=== PATIENT | female | born 1935 | race Caucasian/White ===

== ENCOUNTER 2016-09-29 11:59 | Inpatient (IN) | payer MEDICARE, OTHER ==
--- NOTE | 2016-09-29 12:28 | ED Physician Chart ---
Chief Complaint/HPI - Patient Information Date Seen:: 09/29/16 Time Seen:: 12:05 Chief Complaint:: Sent for mina-psych eval. for agitation Allergies:: Allergies Allergy/AdvReac Type Severity Reaction Status Date / Time No Known Allergies Allergy Verified 09/29/16 12:11 Vitals:: 134/68, afebrile, 74, 18 Review of Systems - Review of Systems General/Constitutional: No fever, No chills Skin: No skin lesions, No rash Head: No headache Eyes: No loss of vision ENT: No earache, No sore throat Neck: No neck pain Cardio Vascular: No chest pain, No palpitations Pulmonary: No SOB, No cough GI: No nausea, No vomiting, No diarrhea G/U: No dysuria Musculoskeletal: No bone or joint pain Psychiatric: Prior psych history, Depression, Anxiety, Other (bipolar) Neurological: No syncope Past Medical History - Past Medical History Past Medical History: HTN, DM, Dyslipidemia, Thyroid disorder, Dementia, Other ( immobility syndrome, obesity, cataracts, Bipolar, anxiety) Family History: None (Pt. cannot give good hx.) Social History: Non Smoker, No Alcohol Surgical History: None (Pt. cannot give good hx.) Medication: Reviewed (ativan, synthroid, zoloft, KCl, metformin, lasix, losartan , xarelto) Physical Exam - Physical Examination General/Constitutional: Awake, Well-developed, well-nourished, Alert, No distress (Pt. is conversant, but confused.), Non-toxic appearing, Ambulatory Head: Atraumatic Eyes: Lids, conjuctiva normal, PERRL, EOMI Skin: Nl inspection, No rash ENMT: External ears, nose nl Neck: Full ROM w/o pain Respiratory: Nl effort/Exclusion, Clear to Auscultation, No Wheeze/Rhonchi/Rales Cardio Vascular: RRR, No murmur, gallop, rubs GI: No tenderness/rebounding/guarding : No CVA tenderness Extremities: No tenderness or effusion, Full ROM Neuro/Psych: Alert/oriented Labs/Radiology/EKG Results - Lab Results Results: UA shows RBC 0 - 2 and WBC 0 - 2. CXR per rad.: "chronic lung changes with L basal subsegmental atelectasis vs. scarring. No focal consolidation identified. Athersclerotic vascular disease. Bilat breat implants noted." CPK nl. CBC unremarkable. Trop. nl. EtOH negligible. CMP unremarkable. Glucose 141. EKG: NSR with nl axis and no acute ST seg elevations. ED Septic Shock - . Is Septic Shock (SBP<90, OR Lactate>4 mmol\\L) present?: No Reassessment (Disposition) - Reassessment Reassessment Condition:: Unchanged - Diagnosis Diagnosis:: Dx: Agitation, mina-psych admit. - Patient Disposition Discharge/Transfer:: Acute Care w/in this hosp Admitted to:: [facility] Admitting Medical Physician:: Dr. Dorado Admitting Psych Physician:: Dr. Sarah Condition at Disposition:: Stable ED Discharge Plan - Patient Disposition Admit/Discharge/Transfer: Acute Care w/in this hosp Condition at Disposition: Unchanged
[2016-09-29 12:38] LABS: % EOSINOPHILS 0.9 % (0.0-5.0); % LYMPHOCYTES 17.4 % (20.0-50.0); % MONOCYTES 6.2 % (2.0-10.0); % NEUTROPHILS 75.5 % (40.0-80.0); HEMATOCRIT 40.1 % (35.0-45.0); HEMOGLOBIN 13.2 gm/dL (11.7-16.1); MEAN CELL VOLUME 83.5 fl (81-100); MEAN CORPUSCULAR HEMOGLOBIN 27.5 pg (27.0-31.0); MEAN CORPUSCULAR HGB CONC 32.9 pg (28.0-36.0); MEAN PLATELET VOLUME 7.5 fl; NEUTROPHILE ABSOLUTE 6.1 Th/cmm (1.8-8.0); PLATELET COUNT 329 Th/cmm (150-400); RED CELL DISTRIBUTION WIDTH 14.1 % (11.5-20.0); WHITE BLOOD COUNT 8.1 Th/cmm (4.8-10.8)
[2016-09-29 12:59] LABS: ALB/GLOB RATIO 1.4 (1.0-1.8); ALKALINE PHOSPHATASE 65 U/L (34-104); ANION GAP 8.1 (7.0-16.0); BILIRUBIN,TOTAL 0.7 mg/dL (0.3-1.0); BUN - UREA NITROGEN 12 mg/dL (7-25); BUN/CREATININE RATIO 13.3; CALCIUM SERUM 9.7 mg/dL (8.6-10.3); CARBON DIOXIDE 27.5 mEq/L (21.0-31.0); CHLORIDE 105 mEq/L (98-107); CREATININE - SERUM 0.9 mg/dL (0.6-1.2); GLUCOSE 141 mg/dL (70-105); POTASSIUM SERUM 3.6 mEq/L (3.5-5.1); SGOT 13 U/L (13-39); SGPT/ALT 9 U/L (7-52); SODIUM SERUM 137 mEq/L (136-145)
[2016-09-29 13:14] LABS: CREATINE KINASE MB 1.8 ng/mL (0.6-6.3)
--- NOTE | 2016-09-29 13:15 | Diagnostic Imaging Report ---
CHEST X-RAY: AP view INDICATION: Pneumonia COMPARISON: None FINDINGS: Bilateral breast implants are noted. There is elevation of the bilateral hemidiaphragms. Chronic lung changes are seen with left basal subsegmental atelectasis versus scarring. No focal consolidation or pleural effusions. Heart size at the upper limits of normal. Atherosclerotic vascular disease noted. Degenerative changes of the spine are noted. There appears to be external material overlying the left clavicular region. IMPRESSION: Chronic lung changes with left basal subsegmental atelectasis versus scarring. No focal consolidation identified. Atherosclerotic vascular disease. Bilateral breast implants noted.
[2016-09-29 13:18] LABS: URINE BILIRUBIN NEGATIVE (NEGATIVE); URINE BLOOD NEGATIVE (NEGATIVE); URINE COLOR YELLOW; URINE GLUCOSE (UA) NEGATIVE (NEGATIVE); URINE KETONE NEGATIVE (NEGATIVE); URINE PROTEIN NEGATIVE (NEGATIVE); URINE UROBILINOGEN 0.2 E.U./dL (0.2 - 1.0)
[2016-09-29 13:21] LABS: URINE BACTERIA FEW /hpf (NONE SEEN); URINE EPITHELIAL CELLS FEW /lpf (FEW); URINE RBC 0-2 /hpf (0-5); URINE WBC 0-2 /hpf (0-5)
[2016-09-29 13:25] LABS: AMPHETAMINE URINE NEGATIVE (NEGATIVE); BARBITURATES URINE NEGATIVE (NEGATIVE); METHADONE URINE NEGATIVE (NEGATIVE)
[2016-09-29 15:45] VITALS: BP 137/70
[2016-09-29] MEDS ORDERED: Maalox 30 mL Cup PO PRN (15:48)
--- NOTE | 2016-09-29 19:45 | Geri Psych History & Physical ---
[facility] History & Physical - Date of Admission Date of Admission: 09/29/16 - Identifying Data Identifying Data: Patient is a 81-year-old woman distant of [facility] - Chief Complaint Chief Complaint: I do not know why they have to bring me here - History of Present Illness History of Present Illness: This is the first psychiatric hospitalization to [facility] for this 81-year-old woman who is a resident of [facility]. Patient is reported to have been getting easily agitated and has been in abusive towards the staff members and also because self abusive and hence patient has been brought over here for stabilization - Past Psych History Past Psych History: None - Substance Abuse History Substance Abuse History: None - Past Medical History Past Medical History: As per the primary care physician Psych: Bipolar Current Medications: Current Medications Acetaminophen (Tylenol) 650 mg PO Q4HR PRN PRN Reason: Mild Pain / Temp above 100 Stop: 11/28/16 15:47 Acetaminophen/Hydrocodone Bitart ([place] 5mg/325mg) 1 tab PO Q6HR PRN PRN Reason: Pain (Mild) Stop: 11/28/16 17:03 Al Hydrox/Mg Hydrox/Simethicone (Maalox) 30 ml PO Q4HR PRN PRN Reason: GI DISTRESS Stop: 11/28/16 15:47 Furosemide (Lasix) 40 mg PO DAILY ANA Stop: 11/29/16 08:59 Levothyroxine Sodium (Synthroid) 0.05 mg PO QAM ANA Stop: 11/29/16 08:59 Lorazepam (Ativan) 0.5 mg PO Q4HR PRN; Protocol PRN Reason: Anxiety Stop: 10/29/16 15:47 Lorazepam (Ativan) 1 mg PO DAILY ANA PRN Reason: Protocol Stop: 11/29/16 08:59 Losartan Potassium (Cozaar) mg PO DAILY ANA Stop: 11/29/16 08:59 Miscellaneous (Metformin Hcl [Glucophage Xr]) 500 mg PO DAILY ANA Stop: 11/29/16 08:59 Multivitamins/Vitamin C (Theragran) 1 tab PO DAILY ANA Stop: 11/29/16 08:59 Potassium Chloride (Klor-Con) 20 meq PO DAILY ANA Stop: 11/29/16 08:59 Zolpidem Tartrate (Ambien) 5 mg PO HS PRN PRN Reason: Insomnia Stop: 11/28/16 15:47 Allergies/Adverse Reactions: Allergies Allergy/AdvReac Type Severity Reaction Status Date / Time No Known Allergies Allergy Verified 09/29/16 12:11 - Social History Social History: President of the [employer] - Family History Family History: Details are not known Family History: No Significant - Legal Problem Legal Problem: None - Mental Status Examination Psych General Appearance: Older than stated age, Casually dressed Psych Behavior: Alert, Cooperative Psych Speech: Normal in Rate and amount Psych Mood: Angry, Anxious, Irritable Psych Affect: Approp. content of speech Psych Thought Process: [place] Psych Cognition: Grossly Intact Psych Insight: Impaired Psych Judgement: Impaired - Physical Examination Physical Exam: As per the primary care physician - Review of System Psychological ROS: Hostility, Irritability Neurological: No Significant - Vitals and I&O Vitals and I&O: Vital Signs Temp 97.6 F 09/29/16 16:56 Pulse 74 09/29/16 16:56 Resp 18 09/29/16 16:56 BP 134/78 09/29/16 16:56 Pulse Ox 98 09/29/16 16:56 Intake & Output 09/29/16 09/29/16 09/30/16 06:59 18:59 06:59 Weight (lbs) 104.326 kg - Impressions Impressions: See below [place] I: Bipolar disorder mixed [place] II: None [place] III: As per the primary care physician - Treatment/Plan Treatment/Plan: Plan to add low-dose of Seroquel and continue patient with Ativan and Ambien patient is currently provided with supportive therapy and is willing to be closely monitored for self abusive behavior estimated length of stay is 5-7 days discharge criteria when patient is no longer safe to self or others and be able to cope with the stress
[2016-09-30] MEDS ORDERED: METFORMIN HCL 500 MG PO SCH (09:00)
--- NOTE | 2016-09-30 09:32 | History and Physical ---
History of Present Illness - HPI Chief Complaint: Increased in agitation HPI: Patient was send for SNF due to increased in agitation. Vital Signs: Last Vital Signs Temp 98 F 09/30/16 06:49 Pulse 88 09/30/16 06:49 Resp 19 09/30/16 06:49 BP 146/73 09/30/16 06:49 Pulse Ox 95 09/30/16 06:49 Past Medical History Cardiovascular: Report: HTN Pulmonary: Report: No Pertinent Hx SPINNER CONTINUOUS: Report: Dementia GI: Report: No Pertinent Hx Psych: Report: Psychosis Musculoskeletal: Report: No Pertinent Hx Rheumatologic: Report: No pertinent Hx Infectious Disease: Report: No Pertinent Hx Renal/: Report: Chronic Renal Failure Endocrine: Report: Diabetes Dermatology: Report: No Pertinent Hx - Past Surgical History Past Surgical History: No pertinent Hx Social History Smoke: No Alcohol: None Drugs: None Lives: Senior Care Domestic Violence: Negative Health Maintenance Health Maintenance: Cholesterol - Medications Home Medications: Home Medication Medication Instructions Recorded Type Furosemide [Lasix] 40 mg PO DAILY 09/29/16 History Hydrocodone/Acetaminophen [[place] 1 tab PO Q6HR PRN 09/29/16 History 325 mg-5 mg*] Levothyroxine [Synthroid] 50 mcg PO QAM 09/29/16 History Lorazepam [Ativan] 1 mg PO DAILY 09/29/16 History Losartan Potassium [Cozaar] 25 mg PO DAILY 09/29/16 History Metformin HCl [Glucophage Xr] 500 mg PO DAILY 09/29/16 History Potassium Chloride ER [Klor-Con] 20 meq PO DAILY 09/29/16 History - Allergies Allergies/Adverse Reactions: Allergies Allergy/AdvReac Type Severity Reaction Status Date / Time No Known Allergies Allergy Verified 09/29/16 12:11 Review of Systems - Review of Systems Constitutional: Report: No Significant Eyes: Report: No Significant ENT: Report: No Significant Respiratory: Report: No Significant Cardiovascular: Report: No Significant Gastrointestinal: Report: No Significant Genitourinary: Report: No Significant Musculoskeletal: Report: No Significant Skin: Report: No Significant Neurological: Report: No Significant Physical Exam - Physical Exam HEENT: Report: Ears Nose Throat within normal limits Neck: Report: Within normal limits Cardiovascular Systems: Report: Regular, Rate and Rhythm Respiratory: Report: Breath Sounds are within normal limits Abdomen: Report: Non-tender to palpation Back: Report: Inspection of back is within normal limits. Extremities: Report: Non-tender to palpation. Skin: Report: Warm, Dry Neuro/Psych: Report: No motor deficit - Lab Results All Lab Results last 24 hours: Laboratory Last Values WBC 8.1 Th/cmm (4.8-10.8) 09/29/16 12:29 RBC 4.80 Mil/cmm (3.80-5.20) 09/29/16 12:29 Hgb 13.2 gm/dL (11.7-16.1) 09/29/16 12:29 Hct 40.1 % (35.0-45.0) 09/29/16 12:29 MCV 83.5 fl (81-100) 09/29/16 12:29 MCH 27.5 pg (27.0-31.0) 09/29/16 12:29 MCHC Differential 32.9 pg (28.0-36.0) 09/29/16 12:29 RDW 14.1 % (11.5-20.0) 09/29/16 12:29 Plt Count 329 Th/cmm (150-400) 09/29/16 12:29 MPV 7.5 fl 09/29/16 12:29 Neutrophils % 75.5 % (40.0-80.0) 09/29/16 12:29 Lymphocytes % 17.4 % (20.0-50.0) L 09/29/16 12:29 Monocytes % 6.2 % (2.0-10.0) 09/29/16 12: Eosinophils % 0.9 % (0.0-5.0) 09/29/16 12:29 Basophils % 0.0 % (0.0-2.0) 09/29/16 12:29 Sodium 137 mEq/L (136-145) 09/29/16 12:29 Potassium 3.6 mEq/L (3.5-5.1) 09/29/16 12:29 Chloride 105 mEq/L (98-107) 09/29/16 12:29 Carbon Dioxide 27.5 mEq/L (21.0-31.0) 09/29/16 12:29 Anion Gap 8.1 (7.0-16.0) 09/29/16 12:29 BUN 12 mg/dL (7-25) 09/29/16 12:29 Creatinine 0.9 mg/dL (0.6-1.2) 09/29/16 12:29 Est GFR ( Amer) TNP 09/29/16 12:29 Est GFR (Non-Af Amer) TNP 09/29/16 12:29 BUN/Creatinine Ratio 13.3 09/29/16 12:29 Glucose 141 mg/dL (70-105) H 09/29/16 12:29 POC Glucose 165 MG/DL (70 - 105) H 09/29/16 22:58 Calcium 9.7 mg/dL (8.6-10.3) 09/29/16 12:29 Total Bilirubin 0.7 mg/dL (0.3-1.0) 09/29/16 12:29 AST 13 U/L (13-39) 09/29/16 12:29 ALT 9 U/L (7-52) 09/29/16 12:29 Alkaline Phosphatase 65 U/L (34-104) 09/29/16 12:29 Creatine Kinase 47 U/L (30-223) 09/29/16 12:29 CK-MB (CK-2) 1.8 ng/mL (0.6-6.3) 09/29/16 12:29 Troponin I < 0.01 ng/mL (0.01-0.05) L 09/29/16 12:29 Total Protein 6.8 gm/dL (6.0-8.3) 09/29/16 12:29 Albumin 4.0 gm/dL (3.7-5.3) 09/29/16 12:29 Globulin 2.8 gm/dL 09/29/16 12:29 Albumin/Globulin Ratio 1.4 (1.0-1.8) 09/29/16 12:29 Free T4 1.45 ng/dL (0.82-1.77) 09/29/16 12:29 Free T3 2.6 pg/mL (2.0-4.4) 09/29/16 12:29 TSH 0.45 uIU/ml (0.34-5.60) 09/29/16 12:29 Urine Source CLEAN C 09/29/16 12:15 Urine Color YELLOW 09/29/16 12:15 Urine Clarity CLEAR (CLEAR) 09/29/16 12:15 Urine pH 7.0 09/29/16 12:15 Ur Specific [place] 1.015 (1.005-1.030) 09/29/16 12:15 Urine Protein NEGATIVE mg/dL (NEGATIVE) 09/29/16 12:15 Urine Glucose (UA) NEGATIVE mg/dL (NEGATIVE) 09/29/16 12:15 Urine Ketones NEGATIVE mg/dL (NEGATIVE) 09/29/16 12:15 Urine Blood NEGATIVE (NEGATIVE) 09/29/16 12:15 Urine Nitrate NEGATIVE (NEGATIVE) 09/29/16 12:15 Urine Bilirubin NEGATIVE (NEGATIVE) 09/29/16 12:15 Urine Urobilinogen 0.2 E.U./dL (0.2 - 1.0) 09/29/16 12:15 Ur Leukocyte Esterase TRACE (NEGATIVE) H 09/29/16 12:15 Urine RBC 0-2 /hpf (0-5) 09/29/16 12:15 Urine WBC 0-2 /hpf (0-5) 09/29/16 12:15 Ur Epithelial Cells FEW /lpf (FEW) 09/29/16 12:15 Urine Bacteria FEW /hpf (NONE SEEN) 09/29/16 12:15 Urine Opiates Screen NEGATIVE (NEGATIVE) 09/29/16 12:15 Urine Methadone Screen NEGATIVE (NEGATIVE) 09/29/16 12:15 Ur Barbiturates Screen NEGATIVE (NEGATIVE) 09/29/16 12:15 Ur Tricyclics Screen NEGATIVE (NEGATIVE) 09/29/16 12:15 Ur Phencyclidine Scrn NEGATIVE (NEGATIVE) 09/29/16 12:15 Amphetamines Screen NEGATIVE (NEGATIVE) 09/29/16 12:15 U Methamphetamines Scrn NEGATIVE (NEGATIVE) 09/29/16 12:15 U Benzodiazepines Scrn POSITIVE (NEGATIVE) H 09/29/16 12:15 U Cocaine Metab Screen NEGATIVE (NEGATIVE) 09/29/16 12:15 U Cannabinoids Screen NEGATIVE (NEGATIVE) 09/29/16 12:15 Ethyl Alcohol < 10 mg/dL (0-10) 09/29/16 12:29 Laboratory Results - last 24 hr 09/29/16 22:58 POC Glucose 165 H - Assessment Assessment: Patient is awake, calm in no acute distress. Dx: Increased in agitation, Dementia, HTN, DM, Thyroid disorder, - Plan Plan: Patient is follow by psychiatry. Will continue with SNF meds.
[2016-09-30] MEDS: Levothyroxine 0.05 Mg Tab PO SCH (09:34)
[2016-09-30] MEDS: Multivitamin Tab PO SCH (09:35)
[2016-09-30] MEDS: Potassium Chloride 20 mEq ER Tab PO SCH (09:35)
[2016-09-30] MEDS: Hydrocodone/APAP 5mg/325mg Tab PO PRN (11:14)
--- NOTE | 2016-09-30 13:00 | Geri Psych Progress Note ---
[facility] Psych Progress Note - Intro Date of Progress Note: 09/30/16 - Assessment Assessment: Acute mood swings. - Vitals, I&O Vitals: Vital Signs - 24 hr 09/29/16 09/29/16 09/30/16 15:45 16:56 06:49 Temp 97.6 F 98 F HR 74 88 RR 18 19 BP 137/70 134/78 146/73 O2 Sat % 98 95 09/30/16 09/30/16 09:34 11:12 Temp HR 88 RR BP 140/73 146/73 O2 Sat % I&O: Intake & Output 09/28/16 09/29/16 09/30/16 10/01/16 06:59 06:59 06:59 06:59 Intake Total 120 Balance 120 Weight (lbs) 104.326 kg - ROS Psychological ROS: Report: Anxiety, Irritability, Mood swings Neurological: Report: No Significant - Objective Psych General Appearance: Report: No acute distress, Casually dressed Psych Behavior: Report: Alert, Cooperative Psych Speech: Report: Normal in Rate and amount Psych Mood: Report: Frustrated, Irritable Psych Affect: Report: Approp. content of speech, Mood-congruent Psych Thought Process: Report: Flight of Ideas Psych Cognition: Report: Grossly Intact Psych Insight: Report: Impaired Psych Judgement: Report: Impaired - Plan Plan: to continue current meds and follow up. - Review of Relevant Data Review of Relevant Data: I have reviewed the following items and time aman (where applicable) has been applied. Psych Data Reviewed: Meds - Diagnosis Diagnosis: Bipolar disorder. - Medications Current Medications: Current Medications Acetaminophen (Tylenol) 650 mg PO Q4HR PRN PRN Reason: Mild Pain / Temp above 100 Stop: 11/28/16 15:47 Acetaminophen/Hydrocodone Bitart ([place] 5mg/325mg) 1 tab PO Q6HR PRN PRN Reason: Pain (Moderate) Stop: 11/28/16 17:03 Last Admin: 09/30/16 11:14 Dose: 1 tab Al Hydrox/Mg Hydrox/Simethicone (Maalox) 30 ml PO Q4HR PRN PRN Reason: GI DISTRESS Stop: 11/28/16 15:47 Furosemide (Lasix) 40 mg PO DAILY ANA Stop: 11/29/16 08:59 Last Admin: 09/30/16 09:34 Dose: 40 mg Levothyroxine Sodium (Synthroid) 0.05 mg PO QAM ANA Stop: 11/29/16 08:59 Last Admin: 09/30/16 09:34 Dose: 0.05 mg Lorazepam (Ativan) 0.5 mg PO Q4HR PRN; Protocol PRN Reason: Anxiety Stop: 10/29/16 15:47 Lorazepam (Ativan) 1 mg PO DAILY ANA PRN Reason: Protocol Stop: 11/29/16 08:59 Last Admin: 09/30/16 09:35 Dose: 1 mg Losartan Potassium (Cozaar) 25 mg PO DAILY ANA Stop: 11/30/16 08:59 Losartan Potassium (Cozaar) 25 mg PO 1030 ANA Stop: 09/30/16 13:30 Last Admin: 09/30/16 11:12 Dose: Not Given Metformin HCl (Glucophage) 500 mg PO DAILY ANA Stop: 11/29/16 09:44 Last Admin: 09/30/16 11:13 Dose: Not Given Multivitamins/Vitamin C (Theragran) 1 tab PO DAILY ANA Stop: 11/29/16 08:59 Last Admin: 09/30/16 09:35 Dose: 1 tab Potassium Chloride (Klor-Con) 20 meq PO DAILY ANA Stop: 11/29/16 08:59 Last Admin: 09/30/16 09:35 Dose: 20 meq Zolpidem Tartrate (Ambien) 5 mg PO HS PRN PRN Reason: Insomnia Stop: 11/28/16 15:47
[2016-10-01] MEDS: Levothyroxine 0.05 Mg Tab PO SCH (08:57)
[2016-10-01] MEDS: Potassium Chloride 20 mEq ER Tab PO SCH (08:58)
[2016-10-01] MEDS: Multivitamin Tab PO SCH (08:58)
--- NOTE | 2016-10-01 10:09 | General Progress Note ---
Subjective - Review of Systems Service Date: 10/01/16 Subjective: Patient is confused Objective - Results Result Diagrams: 09/29/16 12:29 09/29/16 12:29 Recent Labs: Laboratory Last Values WBC 8.1 Th/cmm (4.8-10.8) 09/29/16 12:29 RBC 4.80 Mil/cmm (3.80-5.20) 09/29/16 12:29 Hgb 13.2 gm/dL (11.7-16.1) 09/29/16 12:29 Hct 40.1 % (35.0-45.0) 09/29/16 12:29 MCV 83.5 fl (81-100) 09/29/16 12:29 MCH 27.5 pg (27.0-31.0) 09/29/16 12:29 MCHC Differential 32.9 pg (28.0-36.0) 09/29/16 12:29 RDW 14.1 % (11.5-20.0) 09/29/16 12:29 Plt Count 329 Th/cmm (150-400) 09/29/16 12:29 MPV 7.5 fl 09/29/16 12:29 Neutrophils % 75.5 % (40.0-80.0) 09/29/16 12:29 Lymphocytes % 17.4 % (20.0-50.0) L 09/29/16 12:29 Monocytes % 6.2 % (2.0-10.0) 09/29/16 12:29 Eosinophils % 0.9 % (0.0-5.0) 09/29/16 12:29 Basophils % 0.0 % (0.0-2.0) 09/29/16 12:29 Sodium 137 mEq/L (136-145) 09/29/16 12:29 Potassium 3.6 mEq/L (3.5-5.1) 09/29/16 12:29 Chloride 105 mEq/L (98-107) 09/29/16 12:29 Carbon Dioxide 27.5 mEq/L (21.0-31.0) 09/29/16 12:29 Anion Gap 8.1 (7.0-16.0) 09/29/16 12:29 BUN 12 mg/dL (7-25) 09/29/16 12:29 Creatinine 0.9 mg/dL (0.6-1.2) 09/29/16 12:29 Est GFR ( Amer) TNP 09/29/16 12:29 Est GFR (Non-Af Amer) TNP 09/29/16 12:29 BUN/Creatinine Ratio 13.3 09/29/16 12:29 Glucose 141 mg/dL (70-105) H 09/29/16 12:29 POC Glucose 129 MG/DL (70 - 105) H 09/30/16 16:34 Hemoglobin A1c % 6.9 % (4.0-6.0) H 09/30/16 10:45 Calcium 9.7 mg/dL (8.6-10.3) 09/29/16 12:29 Total Bilirubin 0.7 mg/dL (0.3-1.0) 09/29/16 12:29 AST 13 U/L (13-39) 09/29/16 12:29 ALT 9 U/L (7-52) 09/29/16 12:29 Alkaline Phosphatase 65 U/L (34-104) 09/29/16 12:29 Creatine Kinase 47 U/L (30-223) 09/29/16 12:29 CK-MB (CK-2) 1.8 ng/mL (0.6-6.3) 09/29/16 12:29 Troponin I < 0.01 ng/mL (0.01-0.05) L 09/29/16 12:29 Total Protein 6.8 gm/dL (6.0-8.3) 09/29/16 12:29 Albumin 4.0 gm/dL (3.7-5.3) 09/29/16 12:29 Globulin 2.8 gm/dL 09/29/16 12:29 Albumin/Globulin Ratio 1.4 (1.0-1.8) 09/29/16 12:29 Free T4 1.45 ng/dL (0.82-1.77) 09/29/16 12:29 Free T3 2.6 pg/mL (2.0-4.4) 09/29/16 12:29 TSH 0.45 uIU/ml (0.34-5.60) 09/29/16 12:29 Urine Source CLEAN C 09/29/16 12:15 Urine Color YELLOW 09/29/16 12:15 Urine Clarity CLEAR (CLEAR) 09/29/16 12:15 Urine pH 7.0 09/29/16 12:15 Ur Specific [place] 1.015 (1.005-1.030) 09/29/16 12:15 Urine Protein NEGATIVE mg/dL (NEGATIVE) 09/29/16 12:15 Urine Glucose (UA) NEGATIVE mg/dL (NEGATIVE) 09/29/16 12:15 Urine Ketones NEGATIVE mg/dL (NEGATIVE) 09/29/16 12:15 Urine Blood NEGATIVE (NEGATIVE) 09/29/16 12:15 Urine Nitrate NEGATIVE (NEGATIVE) 09/29/16 12:15 Urine Bilirubin NEGATIVE (NEGATIVE) 09/29/16 12:15 Urine Urobilinogen 0.2 E.U./dL (0.2 - 1.0) 09/29/16 12:15 Ur Leukocyte Esterase TRACE (NEGATIVE) H 09/29/16 12:15 Urine RBC 0-2 /hpf (0-5) 09/29/16 12:15 Urine WBC 0-2 /hpf (0-5) 09/29/16 12:15 Ur Epithelial Cells FEW /lpf (FEW) 09/29/16 12:15 Urine Bacteria FEW /hpf (NONE SEEN) 09/29/16 12:15 Urine Opiates Screen NEGATIVE (NEGATIVE) 09/29/16 12:15 Urine Methadone Screen NEGATIVE (NEGATIVE) 09/29/16 12:15 Ur Barbiturates Screen NEGATIVE (NEGATIVE) 09/29/16 12:15 Ur Tricyclics Screen NEGATIVE (NEGATIVE) 09/29/16 12:15 Ur Phencyclidine Scrn NEGATIVE (NEGATIVE) 09/29/16 12:15 Amphetamines Screen NEGATIVE (NEGATIVE) 09/29/16 12:15 U Methamphetamines Scrn NEGATIVE (NEGATIVE) 09/29/16 12:15 U Benzodiazepines Scrn POSITIVE (NEGATIVE) H 09/29/16 12:15 U Cocaine Metab Screen NEGATIVE (NEGATIVE) 09/29/16 12:15 U Cannabinoids Screen NEGATIVE (NEGATIVE) 09/29/16 12:15 Ethyl Alcohol < 10 mg/dL (0-10) 09/29/16 12:29 RPR NONREACTIVE (NONREACTIVE) 09/29/16 12:29 - Physical Exam Vitals and I&O: Vital Signs Temp 97.7 F 09/30/16 20:00 Pulse 86 07/09/17 08:57 Resp 19 09/30/16 20:00 BP 140/72 10/01/16 08:57 Pulse Ox 94 09/30/16 20:00 Intake & Output 09/30/16 10/01/16 10/01/16 18:59 06:59 18:59 Intake Total 900 400 Balance 900 400 Intake: Oral 900 400 Other: # Voids 4 2 # Bowel Movements 1 Active Medications: Current Medications Acetaminophen (Tylenol) 650 mg PO Q4HR PRN PRN Reason: Mild Pain / Temp above 100 Stop: 11/28/16 15:47 Acetaminophen/Hydrocodone Bitart ([place] 5mg/325mg) 1 tab PO Q6HR PRN PRN Reason: Pain (Moderate) Stop: 11/28/16 17:03 Last Admin: 09/30/16 11:14 Dose: 1 tab Al Hydrox/Mg Hydrox/Simethicone (Maalox) 30 ml PO Q4HR PRN PRN Reason: GI DISTRESS Stop: 11/28/16 15:47 Furosemide (Lasix) 40 mg PO DAILY ANA Stop: 11/29/16 08:59 Last Admin: 10/01/16 08:56 Dose: 40 mg Levothyroxine Sodium (Synthroid) 0.05 mg PO QAM ANA Stop: 11/29/16 08:59 Last Admin: 10/01/16 08:57 Dose: 0.05 mg Lorazepam (Ativan) 0.5 mg PO Q4HR PRN; Protocol PRN Reason: Anxiety Stop: 10/29/16 15:47 Last Admin: 09/30/16 20:40 Dose: 0.5 mg Lorazepam (Ativan) 1 mg PO DAILY ANA PRN Reason: Protocol Stop: 11/29/16 08:59 Last Admin: 10/01/16 08:57 Dose: 1 mg Losartan Potassium (Cozaar) 25 mg PO DAILY ANA Stop: 11/30/16 08:59 Last Admin: 10/01/16 08:57 Dose: 25 mg Metformin HCl (Glucophage) 500 mg PO DAILY ANA Stop: 11/29/16 09:44 Last Admin: 10/01/16 08:57 Dose: 500 mg Multivitamins/Vitamin C (Theragran) 1 tab PO DAILY ANA Stop: 11/29/16 08:59 Last Admin: 10/01/16 08:58 Dose: 1 tab Potassium Chloride (Klor-Con) 20 meq PO DAILY ANA Stop: 11/29/16 08:59 Last Admin: 10/01/16 08:58 Dose: 20 meq Zolpidem Tartrate (Ambien) 5 mg PO HS PRN PRN Reason: Insomnia Stop: 11/28/16 15:47 General: Alert, Other (Confused) HEENT: Atraumatic Neck: Supple Cardiovascular: Regular rate Lungs: Clear to auscultation Abdomen: Bowel sounds, Soft Extremities: Other (No edema) Neurological: Other (Unstable gait) Skin: Other (Warm and dry) Psych/Mental Status: Other (Confused) Assessment/Plan - Assessment Assessment: Patient is awake, calm in no acute distress. Dx: Increased in agitation, Dementia, HTN, DM, Thyroid disorder, - Plan Plan: Patient is follow by psychiatry. Will continue with SNF meds.
--- NOTE | 2016-10-01 10:27 | Geri Psych Progress Note ---
[facility] Progress Note - Intro Date of Progress Note: 10/01/16 - Assessment Assessment: Acute mood swings. - Vitals, I&O Vitals: Vital Signs - 24 hr 09/30/16 09/30/16 09/30/16 11:12 16:14 20:00 Temp 98.2 F 97.7 F HR 88 85 86 HR [Radial] 86 RR 20 19 BP 146/73 139/62 138/71 O2 Sat % 95 94 10/01/16 10/01/16 08:56 08:57 Temp HR 86 HR [Radial] RR BP 140/72 140/72 O2 Sat % I&O: Intake & Output 09/29/16 09/30/16 10/01/16 10/02/16 06:59 06:59 06:59 06:59 Intake Total 120 1300 Balance 120 1300 Weight (lbs) 104.326 kg - ROS Psychological ROS: Report: Anxiety, Behavioral Disorder, Irritability, Sleep Disturbances Neurological: Report: No Significant - Objective Psych General Appearance: Report: No acute distress Psych Behavior: Report: Alert, Cooperative, Agitated Psych Speech: Report: Normal in Rate and amount Psych Mood: Report: Angry, Frustrated, Hostile, Irritable Psych Affect: Report: Approp. content of speech Psych Thought Process: Report: Flight of Ideas Psych Cognition: Report: Grossly Intact Psych Insight: Report: Impaired Psych Judgement: Report: Impaired - Plan Plan: to continue current meds and follow up. - Review of Relevant Data Review of Relevant Data: I have reviewed the following items and time aman (where applicable) has been applied. Psych Data Reviewed: Meds - Diagnosis Diagnosis: Bipolar disorder. - Medications Current Medications: Current Medications Acetaminophen (Tylenol) 650 mg PO Q4HR PRN PRN Reason: Mild Pain / Temp above 100 Stop: 11/28/16 15:47 Acetaminophen/Hydrocodone Bitart ([place] 5mg/325mg) 1 tab PO Q6HR PRN PRN Reason: Pain (Moderate) Stop: 11/28/16 17:03 Last Admin: 09/30/16 11:14 Dose: 1 tab Al Hydrox/Mg Hydrox/Simethicone (Maalox) 30 ml PO Q4HR PRN PRN Reason: GI DISTRESS Stop: 11/28/16 15:47 Furosemide (Lasix) 40 mg PO DAILY ANA Stop: 11/29/16 08:59 Last Admin: 10/01/16 08:56 Dose: 40 mg Insulin Aspart (Novolog Insulin Sliding Scale) 0 units SUBQ ACHS ANA PRN Reason: Protocol Stop: 11/30/16 11:29 Levothyroxine Sodium (Synthroid) 0.05 mg PO QAM ANA Stop: 11/29/16 08:59 Last Admin: 10/01/16 08:57 Dose: 0.05 mg Lorazepam (Ativan) 0.5 mg PO Q4HR PRN; Protocol PRN Reason: Anxiety Stop: 10/29/16 15:47 Last Admin: 09/30/16 20:40 Dose: 0.5 mg Lorazepam (Ativan) 1 mg PO DAILY ANA PRN Reason: Protocol Stop: 11/29/16 08:59 Last Admin: 10/01/16 08:57 Dose: 1 mg Losartan Potassium (Cozaar) 25 mg PO DAILY ANA Stop: 11/30/16 08:59 Last Admin: 10/01/16 08:57 Dose: 25 mg Metformin HCl (Glucophage) 500 mg PO DAILY ANA Stop: 11/29/16 09:44 Last Admin: 10/01/16 08:57 Dose: 500 mg Multivitamins/Vitamin C (Theragran) 1 tab PO DAILY ANA Stop: 11/29/16 08:59 Last Admin: 10/01/16 08:58 Dose: 1 tab Potassium Chloride (Klor-Con) 20 meq PO DAILY ANA Stop: 11/29/16 08:59 Last Admin: 10/01/16 08:58 Dose: 20 meq Zolpidem Tartrate (Ambien) 5 mg PO HS PRN PRN Reason: Insomnia Stop: 11/28/16 15:47
[2016-10-01] MEDS: INSULIN ASPART SLIDING SCALE 100 UNITS/ML UNIT SUBQ SCH ×3 (13:06→20:28)
[2016-10-02] MEDS: INSULIN ASPART SLIDING SCALE 100 UNITS/ML UNIT SUBQ SCH ×4 (06:38→20:07)
--- NOTE | 2016-10-02 08:56 | General Progress Note ---
Subjective - Review of Systems Service Date: 10/02/16 Subjective: Patient is confused Objective - Results Result Diagrams: 09/29/16 12:29 09/29/16 12:29 Recent Labs: Laboratory Last Values WBC 8.1 Th/cmm (4.8-10.8) 09/29/16 12:29 RBC 4.80 Mil/cmm (3.80-5.20) 09/29/16 12:29 Hgb 13.2 gm/dL (11.7-16.1) 09/29/16 12:29 Hct 40.1 % (35.0-45.0) 09/29/16 12:29 MCV 83.5 fl (81-100) 09/29/16 12:29 MCH 27.5 pg (27.0-31.0) 09/29/16 12:29 MCHC Differential 32.9 pg (28.0-36.0) 09/29/16 12:29 RDW 14.1 % (11.5-20.0) 09/29/16 12:29 Plt Count 329 Th/cmm (150-400) 09/29/16 12:29 MPV 7.5 fl 09/29/16 12:29 Neutrophils % 75.5 % (40.0-80.0) 09/29/16 12:29 Lymphocytes % 17.4 % (20.0-50.0) L 09/29/16 12:29 Monocytes % 6.2 % (2.0-10.0) 09/29/16 12:29 Eosinophils % 0.9 % (0.0-5.0) 09/29/16 12:29 Basophils % 0.0 % (0.0-2.0) 09/29/16 12:29 Sodium 137 mEq/L (136-145) 09/29/16 12:29 Potassium 3.6 mEq/L (3.5-5.1) 09/29/16 12:29 Chloride 105 mEq/L (98-107) 09/29/16 12:29 Carbon Dioxide 27.5 mEq/L (21.0-31.0) 09/29/16 12:29 Anion Gap 8.1 (7.0-16.0) 09/29/16 12:29 BUN 12 mg/dL (7-25) 09/29/16 12:29 Creatinine 0.9 mg/dL (0.6-1.2) 09/29/16 12:29 Est GFR ( Amer) TNP 09/29/16 12:29 Est GFR (Non-Af Amer) TNP 09/29/16 12:29 BUN/Creatinine Ratio 13.3 09/29/16 12:29 Glucose 141 mg/dL (70-105) H 09/29/16 12:29 POC Glucose 144 MG/DL (70 - 105) H 10/02/16 06:06 Hemoglobin A1c % 6.9 % (4.0-6.0) H 09/30/16 10:45 Calcium 9.7 mg/dL (8.6-10.3) 09/29/16 12:29 Total Bilirubin 0.7 mg/dL (0.3-1.0) 09/29/16 12:29 AST 13 U/L (13-39) 09/29/16 12:29 ALT 9 U/L (7-52) 09/29/16 12:29 Alkaline Phosphatase 65 U/L (34-104) 09/29/16 12:29 Creatine Kinase 47 U/L (30-223) 09/29/16 12:29 CK-MB (CK-2) 1.8 ng/mL (0.6-6.3) 09/29/16 12:29 Troponin I < 0.01 ng/mL (0.01-0.05) L 09/29/16 12:29 Total Protein 6.8 gm/dL (6.0-8.3) 09/29/16 12:29 Albumin 4.0 gm/dL (3.7-5.3) 09/29/16 12:29 Globulin 2.8 gm/dL 09/29/16 12:29 Albumin/Globulin Ratio 1.4 (1.0-1.8) 09/29/16 12:29 Free T4 1.45 ng/dL (0.82-1.77) 09/29/16 12:29 Free T3 2.6 pg/mL (2.0-4.4) 09/29/16 12:29 TSH 0.45 uIU/ml (0.34-5.60) 09/29/16 12:29 Urine Source CLEAN C 09/29/16 12:15 Urine Color YELLOW 09/29/16 12:15 Urine Clarity CLEAR (CLEAR) 09/29/16 12:15 Urine pH 7.0 09/29/16 12:15 Ur Specific [place] 1.015 (1.005-1.030) 09/29/16 12:15 Urine Protein NEGATIVE mg/dL (NEGATIVE) 09/29/16 12:15 Urine Glucose (UA) NEGATIVE mg/dL (NEGATIVE) 09/29/16 12:15 Urine Ketones NEGATIVE mg/dL (NEGATIVE) 09/29/16 12:15 Urine Blood NEGATIVE (NEGATIVE) 09/29/16 12:15 Urine Nitrate NEGATIVE (NEGATIVE) 09/29/16 12:15 Urine Bilirubin NEGATIVE (NEGATIVE) 09/29/16 12:15 Urine Urobilinogen 0.2 E.U./dL (0.2 - 1.0) 09/29/16 12:15 Ur Leukocyte Esterase TRACE (NEGATIVE) H 09/29/16 12:15 Urine RBC 0-2 /hpf (0-5) 09/29/16 12:15 Urine WBC 0-2 /hpf (0-5) 09/29/16 12:15 Ur Epithelial Cells FEW /lpf (FEW) 09/29/16 12:15 Urine Bacteria FEW /hpf (NONE SEEN) 09/29/16 12:15 Urine Opiates Screen NEGATIVE (NEGATIVE) 09/29/16 12:15 Urine Methadone Screen NEGATIVE (NEGATIVE) 09/29/16 12:15 Ur Barbiturates Screen NEGATIVE (NEGATIVE) 09/29/16 12:15 Ur Tricyclics Screen NEGATIVE (NEGATIVE) 09/29/16 12:15 Ur Phencyclidine Scrn NEGATIVE (NEGATIVE) 09/29/16 12:15 Amphetamines Screen NEGATIVE (NEGATIVE) 09/29/16 12:15 U Methamphetamines Scrn NEGATIVE (NEGATIVE) 09/29/16 12:15 U Benzodiazepines Scrn POSITIVE (NEGATIVE) H 09/29/16 12:15 U Cocaine Metab Screen NEGATIVE (NEGATIVE) 09/29/16 12:15 U Cannabinoids Screen NEGATIVE (NEGATIVE) 09/29/16 12:15 Ethyl Alcohol < 10 mg/dL (0-10) 09/29/16 12:29 RPR NONREACTIVE (NONREACTIVE) 09/29/16 12:29 - Physical Exam Vitals and I&O: Vital Signs Temp 97.3 F 10/02/16 05:30 Pulse 95 07/10/17 05:30 Resp 16 10/02/16 05:30 BP 151/71 10/02/16 05:30 Pulse Ox 96 10/02/16 05:30 Intake & Output 10/01/16 10/02/16 10/02/16 18:59 06:59 18:59 Intake Total 240 Balance 240 Intake: Oral 240 Other: # Voids 2 Active Medications: Current Medications Acetaminophen (Tylenol) 650 mg PO Q4HR PRN PRN Reason: Mild Pain / Temp above 100 Stop: 11/28/16 15:47 Acetaminophen/Hydrocodone Bitart ([place] 5mg/325mg) 1 tab PO Q6HR PRN PRN Reason: Pain (Moderate) Stop: 11/28/16 17:03 Last Admin: 09/30/16 11:14 Dose: 1 tab Al Hydrox/Mg Hydrox/Simethicone (Maalox) 30 ml PO Q4HR PRN PRN Reason: GI DISTRESS Stop: 11/28/16 15:47 Furosemide (Lasix) 40 mg PO DAILY [facility] Stop: 11/29/16 08:59 Last Admin: 10/01/16 08:56 Dose: 40 mg Insulin Aspart (Novolog Insulin Sliding Scale) 0 units SUBQ ACHS ANA PRN Reason: Protocol Stop: 11/30/16 11:29 Last Admin: 10/02/16 06:38 Dose: Not Given Levothyroxine Sodium (Synthroid) 0.05 mg PO QAM [facility] Stop: 11/29/16 08:59 Last Admin: 10/01/16 08:57 Dose: 0.05 mg Lorazepam (Ativan) 0.5 mg PO Q4HR PRN; Protocol PRN Reason: Anxiety Stop: 10/29/16 15:47 Last Admin: 10/01/16 20:28 Dose: 0.5 mg Lorazepam (Ativan) 1 mg PO DAILY ANA PRN Reason: Protocol Stop: 11/29/16 08:59 Last Admin: 10/01/16 08:57 Dose: 1 mg Losartan Potassium (Cozaar) 25 mg PO DAILY ANA Stop: 11/30/16 08:59 Last Admin: 10/01/16 08:57 Dose: 25 mg Metformin HCl (Glucophage) 500 mg PO DAILY [facility] Stop: 11/29/16 09:44 Last Admin: 10/01/16 08:57 Dose: 500 mg Multivitamins/Vitamin C (Theragran) 1 tab PO DAILY ANA Stop: 11/29/16 08:59 Last Admin: 10/01/16 08:58 Dose: 1 tab Potassium Chloride (Klor-Con) 20 meq PO DAILY ANA Stop: 11/29/16 08:59 Last Admin: 10/01/16 08:58 Dose: 20 meq Zolpidem Tartrate (Ambien) 5 mg PO HS PRN PRN Reason: Insomnia Stop: 11/28/16 15:47 General: Alert, Other (Confused) HEENT: Atraumatic Neck: Supple Cardiovascular: Regular rate Lungs: Clear to auscultation Abdomen: Bowel sounds, Soft Extremities: Other (No edema) Neurological: Other (Unstable gait) Skin: Other (Warm and dry) Psych/Mental Status: Other (Confused) Assessment/Plan - Assessment Assessment: Patient is awake, calm in no acute distress. Dx: Increased in agitation, Dementia, HTN, DM, Thyroid disorder, - Plan Plan: Patient is follow by psychiatry. Will continue with SNF meds.
--- NOTE | 2016-10-02 09:07 | Geri Psych Progress Note ---
[facility] Progress Note - Intro Date of Progress Note: 10/02/16 - Assessment Assessment: Acute mood swings. - Vitals, I&O Vitals: Vital Signs - 24 hr 10/01/16 10/02/16 20:00 05:30 Temp 98.6 F 97.3 F HR 90 95 HR [Radial] 90 RR 20 16 BP 143/74 151/71 O2 Sat % 92 96 I&O: Intake & Output 09/30/16 10/01/16 10/02/16 10/03/16 06:59 06:59 06:59 06:59 Intake Total 120 1300 240 Balance 120 1300 240 Weight (lbs) 104.326 kg - ROS Psychological ROS: Report: Anxiety, Behavioral Disorder, Mood swings Neurological: Report: No Significant - Objective Psych General Appearance: Report: No acute distress Psych Behavior: Report: Calm Psych Speech: Report: Normal in Rate and amount Psych Mood: Report: Angry, Anxious, Hostile, Irritable Psych Affect: Report: Approp. content of speech Psych Thought Process: Report: Flight of Ideas Psych Cognition: Report: Grossly Intact Psych Insight: Report: Impaired Psych Judgement: Report: Impaired - Plan Plan: to continue current meds and follow up. - Review of Relevant Data Review of Relevant Data: I have reviewed the following items and time aman (where applicable) has been applied. Psych Data Reviewed: Meds - Diagnosis Diagnosis: Bipolar disorder. - Medications Current Medications: Current Medications Acetaminophen (Tylenol) 650 mg PO Q4HR PRN PRN Reason: Mild Pain / Temp above 100 Stop: 11/28/16 15:47 Acetaminophen/Hydrocodone Bitart ([place] 5mg/325mg) 1 tab PO Q6HR PRN PRN Reason: Pain (Moderate) Stop: 11/28/16 17:03 Last Admin: 09/30/16 11:14 Dose: 1 tab Al Hydrox/Mg Hydrox/Simethicone (Maalox) 30 ml PO Q4HR PRN PRN Reason: GI DISTRESS Stop: 11/28/16 15:47 Furosemide (Lasix) 40 mg PO DAILY ANA Stop: 11/29/16 08:59 Last Admin: 10/01/16 08:56 Dose: 40 mg Insulin Aspart (Novolog Insulin Sliding Scale) 0 units SUBQ ACHS ANA PRN Reason: Protocol Stop: 11/30/16 11:29 Last Admin: 10/02/16 06:38 Dose: Not Given Levothyroxine Sodium (Synthroid) 0.05 mg PO QAM ANA Stop: 11/29/16 08:59 Last Admin: 10/01/16 08:57 Dose: 0.05 mg Lorazepam (Ativan) 0.5 mg PO Q4HR PRN; Protocol PRN Reason: Anxiety Stop: 10/29/16 15:47 Last Admin: 10/01/16 20:28 Dose: 0.5 mg Lorazepam (Ativan) 1 mg PO DAILY ANA PRN Reason: Protocol Stop: 11/29/16 08:59 Last Admin: 10/01/16 08:57 Dose: 1 mg Losartan Potassium (Cozaar) 25 mg PO DAILY ANA Stop: 11/30/16 08:59 Last Admin: 10/01/16 08:57 Dose: 25 mg Metformin HCl (Glucophage) 500 mg PO DAILY ANA Stop: 11/29/16 09:44 Last Admin: 10/01/16 08:57 Dose: 500 mg Multivitamins/Vitamin C (Theragran) 1 tab PO DAILY ANA Stop: 11/29/16 08:59 Last Admin: 10/01/16 08:58 Dose: 1 tab Potassium Chloride (Klor-Con) 20 meq PO DAILY ANA Stop: 11/29/16 08:59 Last Admin: 10/01/16 08:58 Dose: 20 meq Zolpidem Tartrate (Ambien) 5 mg PO HS PRN PRN Reason: Insomnia Stop: 11/28/16 15:47
[2016-10-02] MEDS: Multivitamin Tab PO SCH (09:23)
[2016-10-02] MEDS: Potassium Chloride 20 mEq ER Tab PO SCH (09:23)
[2016-10-02] MEDS: Levothyroxine 0.05 Mg Tab PO SCH (09:24)
[2016-10-02] MEDS: Hydrocodone/APAP 5mg/325mg Tab PO PRN (10:59)
[2016-10-03] MEDS: INSULIN ASPART SLIDING SCALE 100 UNITS/ML UNIT SUBQ SCH ×4 (06:44→20:17)
--- NOTE | 2016-10-03 08:54 | General Progress Note ---
Subjective - Review of Systems Service Date: 10/03/70 Subjective: Patient is confused Objective - Results Result Diagrams: 09/29/16 12:29 09/29/16 12:29 Recent Labs: Laboratory Last Values WBC 8.1 Th/cmm (4.8-10.8) 09/29/16 12:29 RBC 4.80 Mil/cmm (3.80-5.20) 09/29/16 12:29 Hgb 13.2 gm/dL (11.7-16.1) 09/29/16 12:29 Hct 40.1 % (35.0-45.0) 09/29/16 12:29 MCV 83.5 fl (81-100) 09/29/16 12:29 MCH 27.5 pg (27.0-31.0) 09/29/16 12:29 MCHC Differential 32.9 pg (28.0-36.0) 09/29/16 12:29 RDW 14.1 % (11.5-20.0) 09/29/16 12:29 Plt Count 329 Th/cmm (150-400) 09/29/16 12:29 MPV 7.5 fl 09/29/16 12:29 Neutrophils % 75.5 % (40.0-80.0) 09/29/16 12:29 Lymphocytes % 17.4 % (20.0-50.0) L 09/29/16 12:29 Monocytes % 6.2 % (2.0-10.0) 09/29/16 12:29 Eosinophils % 0.9 % (0.0-5.0) 09/29/16 12:29 Basophils % 0.0 % (0.0-2.0) 09/29/16 12:29 Sodium 137 mEq/L (136-145) 09/29/16 12:29 Potassium 3.6 mEq/L (3.5-5.1) 09/29/16 12:29 Chloride 105 mEq/L (98-107) 09/29/16 12:29 Carbon Dioxide 27.5 mEq/L (21.0-31.0) 09/29/16 12:29 Anion Gap 8.1 (7.0-16.0) 09/29/16 12:29 BUN 12 mg/dL (7-25) 09/29/16 12:29 Creatinine 0.9 mg/dL (0.6-1.2) 09/29/16 12:29 Est GFR ( Amer) TNP 09/29/16 12:29 Est GFR (Non-Af Amer) TNP 09/29/16 12:29 BUN/Creatinine Ratio 13.3 09/29/16 12:29 Glucose 141 mg/dL (70-105) H 09/29/16 12:29 POC Glucose 149 MG/DL (70 - 105) H 10/03/16 06:06 Hemoglobin A1c % 6.9 % (4.0-6.0) H 09/30/16 10:45 Calcium 9.7 mg/dL (8.6-10.3) 09/29/16 12:29 Total Bilirubin 0.7 mg/dL (0.3-1.0) 09/29/16 12:29 AST 13 U/L (13-39) 09/29/16 12:29 ALT 9 U/L (7-52) 09/29/16 12:29 Alkaline Phosphatase 65 U/L (34-104) 09/29/16 12:29 Creatine Kinase 47 U/L (30-223) 09/29/16 12:29 CK-MB (CK-2) 1.8 ng/mL (0.6-6.3) 09/29/16 12:29 Troponin I < 0.01 ng/mL (0.01-0.05) L 09/29/16 12:29 Total Protein 6.8 gm/dL (6.0-8.3) 09/29/16 12:29 Albumin 4.0 gm/dL (3.7-5.3) 09/29/16 12:29 Globulin 2.8 gm/dL 09/29/16 12:29 Albumin/Globulin Ratio 1.4 (1.0-1.8) 09/29/16 12:29 Free T4 1.45 ng/dL (0.82-1.77) 09/29/16 12:29 Free T3 2.6 pg/mL (2.0-4.4) 09/29/16 12:29 TSH 0.45 uIU/ml (0.34-5.60) 09/29/16 12:29 Urine Source CLEAN C 09/29/16 12:15 Urine Color YELLOW 09/29/16 12:15 Urine Clarity CLEAR (CLEAR) 09/29/16 12:15 Urine pH 7.0 09/29/16 12:15 Ur Specific [place] 1.015 (1.005-1.030) 09/29/16 12:15 Urine Protein NEGATIVE mg/dL (NEGATIVE) 09/29/16 12:15 Urine Glucose (UA) NEGATIVE mg/dL (NEGATIVE) 09/29/16 12:15 Urine Ketones NEGATIVE mg/dL (NEGATIVE) 09/29/16 12:15 Urine Blood NEGATIVE (NEGATIVE) 09/29/16 12:15 Urine Nitrate NEGATIVE (NEGATIVE) 09/29/16 12:15 Urine Bilirubin NEGATIVE (NEGATIVE) 09/29/16 12:15 Urine Urobilinogen 0.2 E.U./dL (0.2 - 1.0) 09/29/16 12:15 Ur Leukocyte Esterase TRACE (NEGATIVE) H 09/29/16 12:15 Urine RBC 0-2 /hpf (0-5) 09/29/16 12:15 Urine WBC 0-2 /hpf (0-5) 09/29/16 12:15 Ur Epithelial Cells FEW /lpf (FEW) 09/29/16 12:15 Urine Bacteria FEW /hpf (NONE SEEN) 09/29/16 12:15 Urine Opiates Screen NEGATIVE (NEGATIVE) 09/29/16 12:15 Urine Methadone Screen NEGATIVE (NEGATIVE) 09/29/16 12:15 Ur Barbiturates Screen NEGATIVE (NEGATIVE) 09/29/16 12:15 Ur Tricyclics Screen NEGATIVE (NEGATIVE) 09/29/16 12:15 Ur Phencyclidine Scrn NEGATIVE (NEGATIVE) 09/29/16 12:15 Amphetamines Screen NEGATIVE (NEGATIVE) 09/29/16 12:15 U Methamphetamines Scrn NEGATIVE (NEGATIVE) 09/29/16 12:15 U Benzodiazepines Scrn POSITIVE (NEGATIVE) H 09/29/16 12:15 U Cocaine Metab Screen NEGATIVE (NEGATIVE) 09/29/16 12:15 U Cannabinoids Screen NEGATIVE (NEGATIVE) 09/29/16 12:15 Ethyl Alcohol < 10 mg/dL (0-10) 09/29/16 12:29 RPR NONREACTIVE (NONREACTIVE) 09/29/16 12:29 - Physical Exam Vitals and I&O: Vital Signs Temp 97.6 F 10/03/16 06:28 Pulse 85 07/11/17 06:28 Resp 18 10/03/16 06:28 BP 125/56 10/03/16 06:28 Pulse Ox 95 10/03/16 06:28 Intake & Output 10/02/16 10/03/16 10/03/16 18:59 06:59 18:59 Intake Total 1800 120 Balance 1800 120 Intake: Oral 1800 120 Other: # Voids 4 3 # Bowel Movements 1 Active Medications: Current Medications Acetaminophen (Tylenol) 650 mg PO Q4HR PRN PRN Reason: Mild Pain / Temp above 100 Stop: 11/28/16 15:47 Acetaminophen/Hydrocodone Bitart ([place] 5mg/325mg) 1 tab PO Q6HR PRN PRN Reason: Pain (Moderate) Stop: 11/28/16 17:03 Last Admin: 10/02/16 10:59 Dose: 1 tab Al Hydrox/Mg Hydrox/Simethicone (Maalox) 30 ml PO Q4HR PRN PRN Reason: GI DISTRESS Stop: 11/28/16 15:47 Furosemide (Lasix) 40 mg PO DAILY [facility] Stop: 11/29/16 08:59 Last Admin: 10/02/16 09:23 Dose: 40 mg Insulin Aspart (Novolog Insulin Sliding Scale) 0 units SUBQ ACHS ANA PRN Reason: Protocol Stop: 11/30/16 11:29 Last Admin: 10/03/16 06:44 Dose: Not Given Levothyroxine Sodium (Synthroid) 0.05 mg PO QAM [facility] Stop: 11/29/16 08:59 Last Admin: 10/02/16 09:24 Dose: 0.05 mg Lorazepam (Ativan) 0.5 mg PO Q4HR PRN; Protocol PRN Reason: Anxiety Stop: 10/29/16 15:47 Last Admin: 10/02/16 20:26 Dose: 0.5 mg Lorazepam (Ativan) 1 mg PO DAILY ANA PRN Reason: Protocol Stop: 11/29/16 08:59 Last Admin: 10/02/16 09:23 Dose: 1 mg Losartan Potassium (Cozaar) 25 mg PO DAILY [facility] Stop: 11/30/16 08:59 Last Admin: 10/02/16 09:24 Dose: 25 mg Metformin HCl (Glucophage) 500 mg PO DAILY [facility] Stop: 11/29/16 09:44 Last Admin: 10/02/16 09:24 Dose: 500 mg Multivitamins/Vitamin C (Theragran) 1 tab PO DAILY [facility] Stop: 11/29/16 08:59 Last Admin: 10/02/16 09:23 Dose: 1 tab Potassium Chloride (Klor-Con) 20 meq PO DAILY [facility] Stop: 11/29/16 08:59 Last Admin: 10/02/16 09:23 Dose: 20 meq Zolpidem Tartrate (Ambien) 5 mg PO HS PRN PRN Reason: Insomnia Stop: 11/28/16 15:47 Last Admin: 10/02/16 20:26 Dose: 5 mg General: Alert, Other (Confused) HEENT: Atraumatic Neck: Supple Cardiovascular: Regular rate Lungs: Clear to auscultation Abdomen: Bowel sounds, Soft Extremities: Other (No edema) Neurological: Other (Unstable gait) Skin: Other (Warm and dry) Psych/Mental Status: Other (Confused) Assessment/Plan - Assessment Assessment: Patient is awake, calm in no acute distress. Dx: Increased in agitation, Dementia, HTN, DM, Thyroid disorder, - Plan Plan: Patient is follow by psychiatry. Will continue with SNF meds.
[2016-10-03] MEDS: Multivitamin Tab PO SCH (08:59)
[2016-10-03] MEDS: Potassium Chloride 20 mEq ER Tab PO SCH (08:59)
[2016-10-03] MEDS: Levothyroxine 0.05 Mg Tab PO SCH (08:59)
[2016-10-03] MEDS: Hydrocodone/APAP 5mg/325mg Tab PO PRN (10:26)
--- NOTE | 2016-10-03 10:54 | Geri Psych Progress Note ---
[facility] Progress Note - Intro Date of Progress Note: 10/03/16 - Assessment Assessment: Acute mood swings. - Vitals, I&O Vitals: Vital Signs - 24 hr 10/02/16 10/02/16 10/02/16 15:00 15:53 20:00 Temp 97.8 F 97.8 F HR 89 86 HR [Radial] 89 RR 18 18 20 BP 121/57 128/68 O2 Sat % 94 96 10/03/16 10/03/16 10/03/16 06:28 08:56 09:00 Temp 97.6 F HR 85 85 HR [Radial] RR 18 BP 125/56 125/56 125/56 O2 Sat % 95 I&O: Intake & Output 10/01/16 10/02/16 10/03/16 10/04/16 06:59 06:59 06:59 06:59 Intake Total 4296 377 3153 Balance 9412 293 0323 Weight (lbs) 87.997 kg Medication Education: provided - ROS Psychological ROS: Report: Anxiety, Mood swings Neurological: Report: No Significant - Objective Psych General Appearance: Report: No acute distress Psych Speech: Report: Coherent Psych Mood: Report: Angry, Irritable Psych Affect: Report: Approp. content of speech, Constricted Psych Thought Process: Report: Goal Directed, Ruminative Psych Cognition: Report: Grossly Intact Psych Insight: Report: Impaired Psych Judgement: Report: Impaired - Plan Plan: to continue current meds and follow up. - Review of Relevant Data Review of Relevant Data: I have reviewed the following items and time aman (where applicable) has been applied. Psych Data Reviewed: Meds - Diagnosis Diagnosis: Bipolar disorder. - Medications Current Medications: Current Medications Acetaminophen (Tylenol) 650 mg PO Q4HR PRN PRN Reason: Mild Pain / Temp above 100 Stop: 11/28/16 15:47 Acetaminophen/Hydrocodone Bitart ([place] 5mg/325mg) 1 tab PO Q6HR PRN PRN Reason: Pain (Moderate) Stop: 11/28/16 17:03 Last Admin: 10/03/16 10:26 Dose: 1 tab Al Hydrox/Mg Hydrox/Simethicone (Maalox) 30 ml PO Q4HR PRN PRN Reason: GI DISTRESS Stop: 11/28/16 15:47 Furosemide (Lasix) 40 mg PO DAILY [facility] Stop: 11/29/16 08:59 Last Admin: 10/03/16 09:00 Dose: 40 mg Insulin Aspart (Novolog Insulin Sliding Scale) 0 units SUBQ ACHS ANA PRN Reason: Protocol Stop: 11/30/16 11:29 Last Admin: 10/03/16 06:44 Dose: Not Given Levothyroxine Sodium (Synthroid) 0.05 mg PO QAM [facility] Stop: 11/29/16 08:59 Last Admin: 10/03/16 08:59 Dose: 0.05 mg Lorazepam (Ativan) 0.5 mg PO Q4HR PRN; Protocol PRN Reason: Anxiety Stop: 10/29/16 15:47 Last Admin: 10/02/16 20:26 Dose: 0.5 mg Lorazepam (Ativan) 1 mg PO DAILY ANA PRN Reason: Protocol Stop: 11/29/16 08:59 Last Admin: 10/03/16 09:00 Dose: 1 mg Losartan Potassium (Cozaar) 25 mg PO DAILY [facility] Stop: 11/30/16 08:59 Last Admin: 10/03/16 08:56 Dose: Not Given Metformin HCl (Glucophage) 500 mg PO DAILY [facility] Stop: 11/29/16 09:44 Last Admin: 10/03/16 08:59 Dose: 500 mg Multivitamins/Vitamin C (Theragran) 1 tab PO DAILY [facility] Stop: 11/29/16 08:59 Last Admin: 10/03/16 08:59 Dose: 1 tab Potassium Chloride (Klor-Con) 20 meq PO DAILY [facility] Stop: 11/29/16 08:59 Last Admin: 10/03/16 08:59 Dose: 20 meq Zolpidem Tartrate (Ambien) 5 mg PO HS PRN PRN Reason: Insomnia Stop: 11/28/16 15:47 Last Admin: 10/02/16 20:26 Dose: 5 mg
[2016-10-04] MEDS: INSULIN ASPART SLIDING SCALE 100 UNITS/ML UNIT SUBQ SCH ×4 (06:31→21:39)
[2016-10-04] MEDS: Multivitamin Tab PO SCH (08:54)
[2016-10-04] MEDS: Potassium Chloride 20 mEq ER Tab PO SCH (08:54)
[2016-10-04] MEDS: Levothyroxine 0.05 Mg Tab PO SCH (08:57)
--- NOTE | 2016-10-04 09:07 | General Progress Note ---
Subjective - Review of Systems Service Date: 10/04/16 Subjective: Patient is confused Objective - Results Result Diagrams: 09/29/16 12:29 09/29/16 12:29 Recent Labs: Laboratory Last Values WBC 8.1 Th/cmm (4.8-10.8) 09/29/16 12:29 RBC 4.80 Mil/cmm (3.80-5.20) 09/29/16 12:29 Hgb 13.2 gm/dL (11.7-16.1) 09/29/16 12:29 Hct 40.1 % (35.0-45.0) 09/29/16 12:29 MCV 83.5 fl (81-100) 09/29/16 12:29 MCH 27.5 pg (27.0-31.0) 09/29/16 12: MCHC Differential 32.9 pg (28.0-36.0) 09/29/16 12:29 RDW 14.1 % (11.5-20.0) 09/29/16 12:29 Plt Count 329 Th/cmm (150-400) 09/29/16 12:29 MPV 7.5 fl 09/29/16 12:29 Neutrophils % 75.5 % (40.0-80.0) 09/29/16 12:29 Lymphocytes % 17.4 % (20.0-50.0) L 09/29/16 12:29 Monocytes % 6.2 % (2.0-10.0) 09/29/16 12: Eosinophils % 0.9 % (0.0-5.0) 09/29/16 12:29 Basophils % 0.0 % (0.0-2.0) 09/29/16 12:29 Sodium 137 mEq/L (136-145) 09/29/16 12:29 Potassium 3.6 mEq/L (3.5-5.1) 09/29/16 12:29 Chloride 105 mEq/L (98-107) 09/29/16 12:29 Carbon Dioxide 27.5 mEq/L (21.0-31.0) 09/29/16 12:29 Anion Gap 8.1 (7.0-16.0) 09/29/16 12:29 BUN 12 mg/dL (7-25) 09/29/16 12:29 Creatinine 0.9 mg/dL (0.6-1.2) 09/29/16 12:29 Est GFR ( Amer) TNP 09/29/16 12:29 Est GFR (Non-Af Amer) TNP 09/29/16 12:29 BUN/Creatinine Ratio 13.3 09/29/16 12:29 Glucose 141 mg/dL (70-105) H 09/29/16 12:29 POC Glucose 156 MG/DL (70 - 105) H 10/04/16 06:22 Hemoglobin A1c % 6.9 % (4.0-6.0) H 09/30/16 10:45 Calcium 9.7 mg/dL (8.6-10.3) 09/29/16 12:29 Total Bilirubin 0.7 mg/dL (0.3-1.0) 09/29/16 12:29 AST 13 U/L (13-39) 09/29/16 12:29 ALT 9 U/L (7-52) 09/29/16 12:29 Alkaline Phosphatase 65 U/L (34-104) 09/29/16 12:29 Creatine Kinase 47 U/L (30-223) 09/29/16 12:29 CK-MB (CK-2) 1.8 ng/mL (0.6-6.3) 09/29/16 12:29 Troponin I < 0.01 ng/mL (0.01-0.05) L 09/29/16 12:29 Total Protein 6.8 gm/dL (6.0-8.3) 09/29/16 12:29 Albumin 4.0 gm/dL (3.7-5.3) 09/29/16 12:29 Globulin 2.8 gm/dL 09/29/16 12:29 Albumin/Globulin Ratio 1.4 (1.0-1.8) 09/29/16 12:29 Free T4 1.45 ng/dL (0.82-1.77) 09/29/16 12:29 Free T3 2.6 pg/mL (2.0-4.4) 09/29/16 12:29 TSH 0.45 uIU/ml (0.34-5.60) 09/29/16 12:29 Urine Source CLEAN C 09/29/16 12:15 Urine Color YELLOW 09/29/16 12:15 Urine Clarity CLEAR (CLEAR) 09/29/16 12:15 Urine pH 7.0 09/29/16 12:15 Ur Specific [place] 1.015 (1.005-1.030) 09/29/16 12:15 Urine Protein NEGATIVE mg/dL (NEGATIVE) 09/29/16 12:15 Urine Glucose (UA) NEGATIVE mg/dL (NEGATIVE) 09/29/16 12:15 Urine Ketones NEGATIVE mg/dL (NEGATIVE) 09/29/16 12:15 Urine Blood NEGATIVE (NEGATIVE) 09/29/16 12:15 Urine Nitrate NEGATIVE (NEGATIVE) 09/29/16 12:15 Urine Bilirubin NEGATIVE (NEGATIVE) 09/29/16 12:15 Urine Urobilinogen 0.2 E.U./dL (0.2 - 1.0) 09/29/16 12:15 Ur Leukocyte Esterase TRACE (NEGATIVE) H 09/29/16 12:15 Urine RBC 0-2 /hpf (0-5) 09/29/16 12:15 Urine WBC 0-2 /hpf (0-5) 09/29/16 12:15 Ur Epithelial Cells FEW /lpf (FEW) 09/29/16 12:15 Urine Bacteria FEW /hpf (NONE SEEN) 09/29/16 12:15 Urine Opiates Screen NEGATIVE (NEGATIVE) 09/29/16 12:15 Urine Methadone Screen NEGATIVE (NEGATIVE) 09/29/16 12:15 Ur Barbiturates Screen NEGATIVE (NEGATIVE) 09/29/16 12:15 Ur Tricyclics Screen NEGATIVE (NEGATIVE) 09/29/16 12:15 Ur Phencyclidine Scrn NEGATIVE (NEGATIVE) 09/29/16 12:15 Amphetamines Screen NEGATIVE (NEGATIVE) 09/29/16 12:15 U Methamphetamines Scrn NEGATIVE (NEGATIVE) 09/29/16 12:15 U Benzodiazepines Scrn POSITIVE (NEGATIVE) H 09/29/16 12:15 U Cocaine Metab Screen NEGATIVE (NEGATIVE) 09/29/16 12:15 U Cannabinoids Screen NEGATIVE (NEGATIVE) 09/29/16 12:15 Ethyl Alcohol < 10 mg/dL (0-10) 09/29/16 12:29 RPR NONREACTIVE (NONREACTIVE) 09/29/16 12:29 - Physical Exam Vitals and I&O: Vital Signs Temp 97.3 F 10/04/16 06:31 Pulse 95 07/12/17 08:55 Resp 19 10/04/16 06:31 BP 141/78 10/04/16 08:56 Pulse Ox 96 10/04/16 06:31 Intake & Output 10/03/16 10/04/16 10/04/16 18:59 06:59 18:59 Intake Total 2400 240 Balance 2400 240 Weight (lbs) 87.997 kg Intake: Oral 2400 240 Other: # Voids 5 3 # Bowel Movements 1 Stool Characteristics Soft Soft Formed Formed Active Medications: Current Medications Acetaminophen (Tylenol) 650 mg PO Q4HR PRN PRN Reason: Mild Pain / Temp above 100 Stop: 11/28/16 15:47 Acetaminophen/Hydrocodone Bitart ([place] 5mg/325mg) 1 tab PO Q6HR PRN PRN Reason: Pain (Moderate) Stop: 11/28/16 17:03 Last Admin: 10/03/16 10:26 Dose: 1 tab Al Hydrox/Mg Hydrox/Simethicone (Maalox) 30 ml PO Q4HR PRN PRN Reason: GI DISTRESS Stop: 11/28/16 15:47 Furosemide (Lasix) 40 mg PO DAILY ANA Stop: 11/29/16 08:59 Last Admin: 10/04/16 08:56 Dose: 40 mg Insulin Aspart (Novolog Insulin Sliding Scale) 0 units SUBQ ACHS ANA PRN Reason: Protocol Stop: 11/30/16 11:29 Last Admin: 10/04/16 06:31 Dose: 2 units Levothyroxine Sodium (Synthroid) 0.05 mg PO QAM ANA Stop: 11/29/16 08:59 Last Admin: 10/04/16 08:57 Dose: 0.05 mg Lorazepam (Ativan) 0.5 mg PO Q4HR PRN; Protocol PRN Reason: Anxiety Stop: 10/29/16 15:47 Last Admin: 10/03/16 21:12 Dose: 0.5 mg Lorazepam (Ativan) 1 mg PO DAILY ANA PRN Reason: Protocol Stop: 11/29/16 08:59 Last Admin: 10/04/16 08:58 Dose: 1 mg Losartan Potassium (Cozaar) 25 mg PO DAILY ANA Stop: 11/30/16 08:59 Last Admin: 10/04/16 08:55 Dose: 25 mg Metformin HCl (Glucophage) 500 mg PO DAILY ANA Stop: 11/29/16 09:44 Last Admin: 10/04/16 08:55 Dose: 500 mg Multivitamins/Vitamin C (Theragran) 1 tab PO DAILY ANA Stop: 11/29/16 08:59 Last Admin: 10/04/16 08:54 Dose: 1 tab Potassium Chloride (Klor-Con) 20 meq PO DAILY ANA Stop: 11/29/16 08:59 Last Admin: 10/04/16 08:54 Dose: 20 meq Zolpidem Tartrate (Ambien) 5 mg PO HS PRN PRN Reason: Insomnia Stop: 11/28/16 15:47 Last Admin: 10/03/16 20:16 Dose: 5 mg General: Alert, Other (Confused) HEENT: Atraumatic Neck: Supple Cardiovascular: Regular rate Lungs: Clear to auscultation Abdomen: Bowel sounds, Soft Extremities: Other (No edema) Neurological: Other (Unstable gait) Skin: Other (Warm and dry) Psych/Mental Status: Other (Confused) Assessment/Plan - Assessment Assessment: Patient is awake, calm in no acute distress. Dx: Increased in agitation, Dementia, HTN, DM, Thyroid disorder, - Plan Plan: Patient is follow by psychiatry. Will continue with SNF meds. Nutritional Asmnt/Malnutr-PDOC - Dietary Evaluation Malnutrition Findings (Please click <Entered> for more info): Nutritional Asmnt/Malnutrition Start: 10/03/16 09: 49 Text: Status: Complete Freq: Document 10/03/16 09:49 MYA (Rec: 10/03/16 10:09 [email or web address] [email or web address]) Nutritional Asmnt/Malnutrition Patient General Information Diagnosis Bipolar Pertinent Medical Hx/Surgical Hx HTN, dementia, psychosis, chronic renal failure, DM, throid disorder Subjective Information 81 year old female from SNF. Visited pt 10/02 during lunch time, pleasant interview. Pt does not appear BMI 42.1. Pt reported CBW around 194lb, she has voluntarily lost 58lb since February 2016. Pt explained she has been health concious, does not lose more than 2lb per week. Pt reported being diabetic and conciously count carbohdyrates. No significant wasting noted. Avg PO intake 75-100% of meals since adm, meeting nutritional needs. Current Diet Order/ Nutrition Support Regular Pertinent Medications Maalox, Lasix, Novolog, Synthroid, Glucophage, Theragran, Klor-Con Pertinent Labs /8: A1c 6.9H POC glucose 114-170 since adm Nutritional Hx/Data Height 1.57 m Height (Calculated Centimeters) 157.5 Current Weight (lbs) 87.997 kg Weight (Calculated Kilograms) 88.0 Weight (Calculated Grams) 48162.9 Usual body Weight (lbs) 194 [place] Body Weight 110 Weight Status Obese GI Symptoms Skin Integrity/Comment: Ric[place] 16. Skin intact. Current %PO Good (75-100%) Estimated Nutritional Goals BEE in Kcals: Adj wt of IBW Calories/Kcals/Kg AdjBW 131lb/59.5kg Kcals Calculated 1488-1785kcal (25-30kcal/kg) Protein: Adj wt of IBW Protein Calculated 60g (1g/kg) Fluid: ml 1488-1785ml (1ml/kcal) Nutritional Problem 1. Problem Problem Altered nutrition related laboratory values related to Etiology DM aeb Signs/Symptoms: A1c 6.9H, POC glucose 114-170 since adm Intervention/Recommendation Comments 1. Recommend [id number]. Explained diet to pt. Pt has good understanding of CHO foods and CCHO diet. Pt appears health concious. All questions regarding DM answered. Avg PO intake is adequate. Expected Outcomes/Goals Expected Outcomes/Goals 1. PO intake continue to meet at least 75% of estimated nutritional needs.
--- NOTE | 2016-10-04 10:46 | Geri Psych Progress Note ---
[facility] Progress Note - Intro Date of Progress Note: 10/04/16 - Assessment Assessment: Acute mood swings. - Vitals, I&O Vitals: Vital Signs - 24 hr 10/03/16 10/03/16 10/03/16 14:00 15:57 20:00 Temp 97.5 F 97.7 F HR 85 84 HR [Radial] 89 84 RR 20 18 18 BP 118/77 138/71 O2 Sat % 95 96 10/04/16 10/04/16 10/04/16 06:31 08:55 08:56 Temp 97.3 F HR 95 95 HR [Radial] RR 19 BP 141/78 141/78 141/78 O2 Sat % 96 I&O: Intake & Output 10/02/16 10/03/16 10/04/16 10/05/16 06:59 06:59 06:59 06:59 Intake Total 240 1920 2640 Balance 240 1920 2640 Weight (lbs) 87.997 kg - ROS Psychological ROS: Report: Anxiety, Mood swings, Sleep Disturbances Neurological: Report: No Significant - Objective Psych General Appearance: Report: No acute distress, Casually dressed Psych Behavior: Report: Alert, Cooperative Psych Speech: Report: Normal in Rate and amount Psych Mood: Report: Angry, Anxious, Irritable Psych Affect: Report: Anxious, Constricted, Varibable Psych Thought Process: Report: [place] Psych Cognition: Report: Grossly Intact Psych Insight: Report: Impaired Psych Judgement: Report: Impaired - Plan Plan: to continue suppotive therapy and start Depakote. - Review of Relevant Data Review of Relevant Data: I have reviewed the following items and time aman (where applicable) has been applied. Psych Data Reviewed: Meds - Diagnosis Diagnosis: Bipolar disorder. - Medications Current Medications: Current Medications Acetaminophen (Tylenol) 650 mg PO Q4HR PRN PRN Reason: Mild Pain / Temp above 100 Stop: 11/28/16 15:47 Acetaminophen/Hydrocodone Bitart ([place] 5mg/325mg) 1 tab PO Q6HR PRN PRN Reason: Pain (Moderate) Stop: 11/28/16 17:03 Last Admin: 10/03/16 10:26 Dose: 1 tab Al Hydrox/Mg Hydrox/Simethicone (Maalox) 30 ml PO Q4HR PRN PRN Reason: GI DISTRESS Stop: 11/28/16 15:47 Divalproex Sodium (Depakote Dr) 125 mg PO Q12HR ANA PRN Reason: Protocol Stop: 12/03/16 20:59 Furosemide (Lasix) 40 mg PO DAILY ANA Stop: 11/29/16 08:59 Last Admin: 10/04/16 08:56 Dose: 40 mg Insulin Aspart (Novolog Insulin Sliding Scale) 0 units SUBQ ACHS ANA PRN Reason: Protocol Stop: 11/30/16 11:29 Last Admin: 10/04/16 06:31 Dose: 2 units Levothyroxine Sodium (Synthroid) 0.05 mg PO QAM ANA Stop: 11/29/16 08:59 Last Admin: 10/04/16 08:57 Dose: 0.05 mg Lorazepam (Ativan) 0.5 mg PO Q4HR PRN; Protocol PRN Reason: Anxiety Stop: 10/29/16 15:47 Last Admin: 10/03/16 21:12 Dose: 0.5 mg Lorazepam (Ativan) 1 mg PO DAILY ANA PRN Reason: Protocol Stop: 11/29/16 08:59 Last Admin: 10/04/16 08:58 Dose: 1 mg Losartan Potassium (Cozaar) 25 mg PO DAILY ANA Stop: 11/30/16 08:59 Last Admin: 10/04/16 08:55 Dose: 25 mg Metformin HCl (Glucophage) 500 mg PO DAILY ANA Stop: 11/29/16 09:44 Last Admin: 10/04/16 08:55 Dose: 500 mg Multivitamins/Vitamin C (Theragran) 1 tab PO DAILY ANA Stop: 11/29/16 08:59 Last Admin: 10/04/16 08:54 Dose: 1 tab Potassium Chloride (Klor-Con) 20 meq PO DAILY ANA Stop: 11/29/16 08:59 Last Admin: 10/04/16 08:54 Dose: 20 meq Zolpidem Tartrate (Ambien) 5 mg PO HS PRN PRN Reason: Insomnia Stop: 11/28/16 15:47 Last Admin: 10/03/16 20:16 Dose: 5 mg
[2016-10-04] MEDS: Hydrocodone/APAP 5mg/325mg Tab PO PRN (14:36)
[2016-10-05] MEDS: INSULIN ASPART SLIDING SCALE 100 UNITS/ML UNIT SUBQ SCH ×4 (06:52→21:00)
[2016-10-05] MEDS: Levothyroxine 0.05 Mg Tab PO SCH (08:14)
[2016-10-05] MEDS: Potassium Chloride 20 mEq ER Tab PO SCH (08:14)
[2016-10-05] MEDS: Multivitamin Tab PO SCH (08:15)
--- NOTE | 2016-10-05 12:12 | Discharge Summary ---
General Discharge Summary - Discharge Summary Laboratory Findings: Laboratory Tests 09/29/16 09/30/16 09/30/16 22:58 10:45 16:34 POC Glucose 165 H 129 H Hemoglobin A1c % 6.9 H 10/01/16 10/01/16 10/01/16 11:48 16:15 19:28 POC Glucose 158 H 114 H 167 H Hemoglobin A1c % 10/02/16 10/02/16 10/02/16 06:06 12:14 17:37 POC Glucose 144 H 170 H 121 H Hemoglobin A1c % 10/02/16 10/03/16 10/03/16 20:04 06:06 12:00 POC Glucose 145 H 149 H 131 H Hemoglobin A1c % 10/03/16 10/03/16 10/04/16 16:36 19:26 06:22 POC Glucose 130 H 148 H 156 H Hemoglobin A1c % 10/04/16 10/04/16 10/04/16 11:18 16:14 20:35 POC Glucose 135 H 107 H 181 H Hemoglobin A1c % 10/05/16 06:32 POC Glucose 135 H Hemoglobin A1c % Disposition: Other Care w/in this hosp Home Medications: Home Medication Medication Instructions Recorded Type Furosemide [Lasix] 40 mg PO DAILY 09/29/16 History Hydrocodone/Acetaminophen [[place] 1 tab PO Q6HR PRN 09/29/16 History 325 mg-5 mg*] Levothyroxine [Synthroid] 50 mcg PO QAM 09/29/16 History Lorazepam [Ativan] 1 mg PO DAILY 09/29/16 History Losartan Potassium [Cozaar] 25 mg PO DAILY 09/29/16 History Metformin HCl [Glucophage Xr] 500 mg PO DAILY 09/29/16 History Potassium Chloride ER [Klor-Con] 20 meq PO DAILY 09/29/16 History Inpatient Medications: Current Medications Acetaminophen (Tylenol) 650 mg PO Q4HR PRN PRN Reason: Mild Pain / Temp above 100 Stop: 11/28/16 15:47 Acetaminophen/Hydrocodone Bitart ([place] 5mg/325mg) 1 tab PO Q6HR PRN PRN Reason: Pain (Moderate) Stop: 11/28/16 17:03 Last Admin: 10/04/16 14:36 Dose: 1 tab Al Hydrox/Mg Hydrox/Simethicone (Maalox) 30 ml PO Q4HR PRN PRN Reason: GI DISTRESS Stop: 11/28/16 15:47 Divalproex Sodium (Depakote Dr) 125 mg PO Q12HR ANA PRN Reason: Protocol Stop: 12/03/16 20:59 Last Admin: 10/05/16 08:16 Dose: 125 mg Furosemide (Lasix) 40 mg PO DAILY ANA Stop: 11/29/16 08:59 Last Admin: 10/05/16 08:15 Dose: 40 mg Insulin Aspart (Novolog Insulin Sliding Scale) 0 units SUBQ ACHS ANA PRN Reason: Protocol Stop: 11/30/16 11:29 Last Admin: 10/05/16 06:52 Dose: Not Given Levothyroxine Sodium (Synthroid) 0.05 mg PO QAM ANA Stop: 11/29/16 08:59 Last Admin: 10/05/16 08:14 Dose: 0.05 mg Lorazepam (Ativan) 0.5 mg PO Q4HR PRN; Protocol PRN Reason: Anxiety Stop: 10/29/16 15:47 Last Admin: 10/03/16 21:12 Dose: 0.5 mg Lorazepam (Ativan) 1 mg PO DAILY ANA PRN Reason: Protocol Stop: 11/29/16 08:59 Last Admin: 10/05/16 08:16 Dose: 1 mg Losartan Potassium (Cozaar) 25 mg PO DAILY ANA Stop: 11/30/16 08:59 Last Admin: 10/05/16 08:15 Dose: 25 mg Metformin HCl (Glucophage) 500 mg PO DAILY ANA Stop: 11/29/16 09:44 Last Admin: 10/05/16 08:16 Dose: 500 mg Multivitamins/Vitamin C (Theragran) 1 tab PO DAILY ANA Stop: 11/29/16 08:59 Last Admin: 10/05/16 08:15 Dose: 1 tab Potassium Chloride (Klor-Con) 20 meq PO DAILY ANA Stop: 11/29/16 08:59 Last Admin: 10/05/16 08:14 Dose: 20 meq Zolpidem Tartrate (Ambien) 5 mg PO HS PRN PRN Reason: Insomnia Stop: 11/28/16 15:47 Last Admin: 10/04/16 21:36 Dose: 5 mg Consults and Follow-Up: JOCE NUNEZ [Other] Quintin Dorado [Primary Care Provider] -
--- NOTE | 2016-10-05 12:16 | Geri Psych Progress Note ---
[facility] Progress Note - Intro Date of Progress Note: 10/05/16 - Assessment Assessment: Acute mood swings. - Vitals, I&O Vitals: Vital Signs - 24 hr 10/04/16 10/04/16 10/04/16 14:00 14:07 20:00 Temp 97.6 F HR 93 HR [Radial] 95 95 RR 18 19 19 BP 120/49 O2 Sat % 97 10/04/16 10/05/16 10/05/16 20:05 05:54 08:15 Temp 97.3 F 98.0 F HR 88 84 84 HR [Radial] RR 20 19 BP 136/66 150/72 150/72 O2 Sat % 96 94 I&O: Intake & Output 10/03/16 10/04/16 10/05/16 10/06/16 06:59 06:59 06:59 06:59 Intake Total 1920 2640 180 Balance 0 2640 180 Weight (lbs) 87.997 kg - ROS Psychological ROS: Report: Anxiety, Hostility, Irritability Neurological: Report: No Significant - Objective Psych General Appearance: Report: Older than stated age, Casually dressed Psych Behavior: Report: Alert, Cooperative Psych Speech: Report: Normal in Rate and amount Psych Mood: Report: Angry, Anxious, Irritable Psych Affect: Report: [place] content of speech Psych Thought Process: Report: [place] Psych Cognition: Report: Grossly Intact Psych Insight: Report: Impaired Psych Judgement: Report: Impaired - Plan Plan: to continue supporttive tx and spoke to the staff reg placement. - Review of Relevant Data Review of Relevant Data: I have reviewed the following items and time aman (where applicable) has been applied. Psych Data Reviewed: Meds - Diagnosis Diagnosis: Bipolar disorder - Medications Current Medications: Current Medications Acetaminophen (Tylenol) 650 mg PO Q4HR PRN PRN Reason: Mild Pain / Temp above 100 Stop: 11/28/16 15:47 Acetaminophen/Hydrocodone Bitart ([place] 5mg/325mg) 1 tab PO Q6HR PRN PRN Reason: Pain (Moderate) Stop: 11/28/16 17:03 Last Admin: 10/04/16 14:36 Dose: 1 tab Al Hydrox/Mg Hydrox/Simethicone (Maalox) 30 ml PO Q4HR PRN PRN Reason: GI DISTRESS Stop: 11/28/16 15:47 Divalproex Sodium (Depakote Dr) 125 mg PO Q12HR ANA PRN Reason: Protocol Stop: 12/03/16 20:59 Last Admin: 10/05/16 08:16 Dose: 125 mg Furosemide (Lasix) 40 mg PO DAILY ANA Stop: 11/29/16 08:59 Last Admin: 10/05/16 08:15 Dose: 40 mg Insulin Aspart (Novolog Insulin Sliding Scale) 0 units SUBQ ACHS ANA PRN Reason: Protocol Stop: 11/30/16 11:29 Last Admin: 10/05/16 06:52 Dose: Not Given Levothyroxine Sodium (Synthroid) 0.05 mg PO QAM ANA Stop: 11/29/16 08:59 Last Admin: 10/05/16 08:14 Dose: 0.05 mg Lorazepam (Ativan) 0.5 mg PO Q4HR PRN; Protocol PRN Reason: Anxiety Stop: 10/29/16 15:47 Last Admin: 10/03/16 21:12 Dose: 0.5 mg Lorazepam (Ativan) 1 mg PO DAILY ANA PRN Reason: Protocol Stop: 11/29/16 08:59 Last Admin: 10/05/16 08:16 Dose: 1 mg Losartan Potassium (Cozaar) 25 mg PO DAILY ANA Stop: 11/30/16 08:59 Last Admin: 10/05/16 08:15 Dose: 25 mg Metformin HCl (Glucophage) 500 mg PO DAILY ANA Stop: 11/29/16 09:44 Last Admin: 10/05/16 08:16 Dose: 500 mg Multivitamins/Vitamin C (Theragran) 1 tab PO DAILY ANA Stop: 11/29/16 08:59 Last Admin: 10/05/16 08:15 Dose: 1 tab Potassium Chloride (Klor-Con) 20 meq PO DAILY ANA Stop: 11/29/16 08:59 Last Admin: 10/05/16 08:14 Dose: 20 meq Zolpidem Tartrate (Ambien) 5 mg PO HS PRN PRN Reason: Insomnia Stop: 11/28/16 15:47 Last Admin: 10/04/16 21:36 Dose: 5 mg
--- NOTE | 2016-10-05 13:54 | General Progress Note ---
Subjective - Review of Systems Service Date: 10/05/16 Subjective: Patient is confused Objective - Results Result Diagrams: 09/29/16 12:29 09/29/16 12:29 Recent Labs: Laboratory Last Values WBC 8.1 Th/cmm (4.8-10.8) 09/29/16 12:29 RBC 4.80 Mil/cmm (3.80-5.20) 09/29/16 12:29 Hgb 13.2 gm/dL (11.7-16.1) 09/29/16 12:29 Hct 40.1 % (35.0-45.0) 09/29/16 12:29 MCV 83.5 fl (81-100) 09/29/16 12:29 MCH 27.5 pg (27.0-31.0) 09/29/16 12:29 MCHC Differential 32.9 pg (28.0-36.0) 09/29/16 12:29 RDW 14.1 % (11.5-20.0) 09/29/16 12:29 Plt Count 329 Th/cmm (150-400) 09/29/16 12:29 MPV 7.5 fl 09/29/16 12:29 Neutrophils % 75.5 % (40.0-80.0) 09/29/16 12:29 Lymphocytes % 17.4 % (20.0-50.0) L 09/29/16 12:29 Monocytes % 6.2 % (2.0-10.0) 09/29/16 12:29 Eosinophils % 0.9 % (0.0-5.0) 09/29/16 12:29 Basophils % 0.0 % (0.0-2.0) 09/29/16 12:29 Sodium 137 mEq/L (136-145) 09/29/16 12:29 Potassium 3.6 mEq/L (3.5-5.1) 09/29/16 12:29 Chloride 105 mEq/L (98-107) 09/29/16 12:29 Carbon Dioxide 27.5 mEq/L (21.0-31.0) 09/29/16 12:29 Anion Gap 8.1 (7.0-16.0) 09/29/16 12:29 BUN 12 mg/dL (7-25) 09/29/16 12:29 Creatinine 0.9 mg/dL (0.6-1.2) 09/29/16 12:29 Est GFR ( Amer) TNP 09/29/16 12:29 Est GFR (Non-Af Amer) TNP 09/29/16 12:29 BUN/Creatinine Ratio 13.3 09/29/16 12:29 Glucose 141 mg/dL (70-105) H 09/29/16 12:29 POC Glucose 135 MG/DL (70 - 105) H 10/05/16 06:32 Hemoglobin A1c % 6.9 % (4.0-6.0) H 09/30/16 10:45 Calcium 9.7 mg/dL (8.6-10.3) 09/29/16 12:29 Total Bilirubin 0.7 mg/dL (0.3-1.0) 09/29/16 12:29 AST 13 U/L (13-39) 09/29/16 12:29 ALT 9 U/L (7-52) 09/29/16 12:29 Alkaline Phosphatase 65 U/L (34-104) 09/29/16 12:29 Creatine Kinase 47 U/L (30-223) 09/29/16 12:29 CK-MB (CK-2) 1.8 ng/mL (0.6-6.3) 09/29/16 12:29 Troponin I < 0.01 ng/mL (0.01-0.05) L 09/29/16 12:29 Total Protein 6.8 gm/dL (6.0-8.3) 09/29/16 12:29 Albumin 4.0 gm/dL (3.7-5.3) 09/29/16 12:29 Globulin 2.8 gm/dL 09/29/16 12:29 Albumin/Globulin Ratio 1.4 (1.0-1.8) 09/29/16 12:29 Free T4 1.45 ng/dL (0.82-1.77) 09/29/16 12:29 Free T3 2.6 pg/mL (2.0-4.4) 09/29/16 12:29 TSH 0.45 uIU/ml (0.34-5.60) 09/29/16 12:29 Urine Source CLEAN C 09/29/16 12:15 Urine Color YELLOW 09/29/16 12:15 Urine Clarity CLEAR (CLEAR) 09/29/16 12:15 Urine pH 7.0 09/29/16 12:15 Ur Specific [place] 1.015 (1.005-1.030) 09/29/16 12:15 Urine Protein NEGATIVE mg/dL (NEGATIVE) 09/29/16 12:15 Urine Glucose (UA) NEGATIVE mg/dL (NEGATIVE) 09/29/16 12:15 Urine Ketones NEGATIVE mg/dL (NEGATIVE) 09/29/16 12:15 Urine Blood NEGATIVE (NEGATIVE) 09/29/16 12:15 Urine Nitrate NEGATIVE (NEGATIVE) 09/29/16 12:15 Urine Bilirubin NEGATIVE (NEGATIVE) 09/29/16 12:15 Urine Urobilinogen 0.2 E.U./dL (0.2 - 1.0) 09/29/16 12:15 Ur Leukocyte Esterase TRACE (NEGATIVE) H 09/29/16 12:15 Urine RBC 0-2 /hpf (0-5) 09/29/16 12:15 Urine WBC 0-2 /hpf (0-5) 09/29/16 12:15 Ur Epithelial Cells FEW /lpf (FEW) 09/29/16 12:15 Urine Bacteria FEW /hpf (NONE SEEN) 09/29/16 12:15 Urine Opiates Screen NEGATIVE (NEGATIVE) 09/29/16 12:15 Urine Methadone Screen NEGATIVE (NEGATIVE) 09/29/16 12:15 Ur Barbiturates Screen NEGATIVE (NEGATIVE) 09/29/16 12:15 Ur Tricyclics Screen NEGATIVE (NEGATIVE) 09/29/16 12:15 Ur Phencyclidine Scrn NEGATIVE (NEGATIVE) 09/29/16 12:15 Amphetamines Screen NEGATIVE (NEGATIVE) 09/29/16 12:15 U Methamphetamines Scrn NEGATIVE (NEGATIVE) 09/29/16 12:15 U Benzodiazepines Scrn POSITIVE (NEGATIVE) H 09/29/16 12:15 U Cocaine Metab Screen NEGATIVE (NEGATIVE) 09/29/16 12:15 U Cannabinoids Screen NEGATIVE (NEGATIVE) 09/29/16 12:15 Ethyl Alcohol < 10 mg/dL (0-10) 09/29/16 12:29 RPR NONREACTIVE (NONREACTIVE) 09/29/16 12:29 - Physical Exam Vitals and I&O: Vital Signs Temp 98.0 F 10/05/16 05:54 Pulse 84 07/13/17 08:15 Resp 19 10/05/16 08:00 BP 150/72 10/05/16 08:15 Pulse Ox 94 10/05/16 05:54 Intake & Output 10/04/16 10/05/16 10/05/16 18:59 06:59 18:59 Intake Total 180 Balance 180 Intake: Oral 180 Other: # Voids 1 # Bowel Movements 0 Stool Characteristics Soft Soft Soft Formed Formed Formed Active Medications: Current Medications Acetaminophen (Tylenol) 650 mg PO Q4HR PRN PRN Reason: Mild Pain / Temp above 100 Stop: 11/28/16 15:47 Acetaminophen/Hydrocodone Bitart ([place] 5mg/325mg) 1 tab PO Q6HR PRN PRN Reason: Pain (Moderate) Stop: 11/28/16 17:03 Last Admin: 10/04/16 14:36 Dose: 1 tab Al Hydrox/Mg Hydrox/Simethicone (Maalox) 30 ml PO Q4HR PRN PRN Reason: GI DISTRESS Stop: 11/28/16 15:47 Divalproex Sodium (Depakote Dr) 125 mg PO Q12HR ANA PRN Reason: Protocol Stop: 12/03/16 20:59 Last Admin: 10/05/16 08:16 Dose: 125 mg Furosemide (Lasix) 40 mg PO DAILY [facility] Stop: 11/29/16 08:59 Last Admin: 10/05/16 08:15 Dose: 40 mg Insulin Aspart (Novolog Insulin Sliding Scale) 0 units SUBQ ACHS ANA PRN Reason: Protocol Stop: 11/30/16 11:29 Last Admin: 10/05/16 06:52 Dose: Not Given Levothyroxine Sodium (Synthroid) 0.05 mg PO QAM ANA Stop: 11/29/16 08:59 Last Admin: 10/05/16 08:14 Dose: 0.05 mg Lorazepam (Ativan) 0.5 mg PO Q4HR PRN; Protocol PRN Reason: Anxiety Stop: 10/29/16 15:47 Last Admin: 10/03/16 21:12 Dose: 0.5 mg Lorazepam (Ativan) 1 mg PO DAILY ANA PRN Reason: Protocol Stop: 11/29/16 08:59 Last Admin: 10/05/16 08:16 Dose: 1 mg Losartan Potassium (Cozaar) 25 mg PO DAILY [facility] Stop: 11/30/16 08:59 Last Admin: 10/05/16 08:15 Dose: 25 mg Metformin HCl (Glucophage) 500 mg PO DAILY [facility] Stop: 11/29/16 09:44 Last Admin: 10/05/16 08:16 Dose: 500 mg Multivitamins/Vitamin C (Theragran) 1 tab PO DAILY ANA Stop: 11/29/16 08:59 Last Admin: 10/05/16 08:15 Dose: 1 tab Potassium Chloride (Klor-Con) 20 meq PO DAILY [facility] Stop: 11/29/16 08:59 Last Admin: 10/05/16 08:14 Dose: 20 meq Zolpidem Tartrate (Ambien) 5 mg PO HS PRN PRN Reason: Insomnia Stop: 11/28/16 15:47 Last Admin: 10/04/16 21:36 Dose: 5 mg General: Alert, Other (Confused) HEENT: Atraumatic Neck: Supple Cardiovascular: Regular rate Lungs: Clear to auscultation Abdomen: Bowel sounds, Soft Extremities: Other (No edema) Neurological: Other (Unstable gait) Skin: Other (Warm and dry) Psych/Mental Status: Other (Confused) Assessment/Plan - Assessment Assessment: Patient is awake, calm in no acute distress. Dx: Increased in agitation, Dementia, HTN, DM, Thyroid disorder, - Plan Plan: Patient is follow by psychiatry. Will continue with SNF meds. Nutritional Asmnt/Malnutr-PDOC - Dietary Evaluation Malnutrition Findings (Please click <Entered> for more info): Nutritional Asmnt/Malnutrition Start: 10/03/16 09: 49 Text: Status: Complete Freq: Document 10/03/16 09:49 GSUN (Rec: 10/03/16 10:09 [email or web address]) Nutritional Asmnt/Malnutrition Patient General Information Diagnosis Bipolar Pertinent Medical Hx/Surgical Hx HTN, dementia, psychosis, chronic renal failure, DM, throid disorder Subjective Information 81 year old female from SNF. Visited pt 10/02 during lunch time, pleasant interview. Pt does not appear BMI 42.1. Pt reported CBW around 194lb, she has voluntarily lost 58lb since February 2016. Pt explained she has been health concious, does not lose more than 2lb per week. Pt reported being diabetic and conciously count carbohdyrates. No significant wasting noted. Avg PO intake 75-100% of meals since adm, meeting nutritional needs. Current Diet Order/ Nutrition Support Regular Pertinent Medications Maalox, Lasix, Novolog, Synthroid, Glucophage, Theragran, Klor-Con Pertinent Labs 09/30: A1c 6.9H POC glucose 114-170 since adm Nutritional Hx/Data Height 1.57 m Height (Calculated Centimeters) 157.5 Current Weight (lbs) 87.997 kg Weight (Calculated Kilograms) 88.0 Weight (Calculated Grams) 00093.9 Usual body Weight (lbs) 194 [place] Body Weight 110 Weight Status Obese GI Symptoms Skin Integrity/Comment: Rickey 16. Skin intact. Current %PO Good (75-100%) Estimated Nutritional Goals BEE in Kcals: Adj wt of IBW Calories/Kcals/Kg AdjBW 131lb/59.5kg Kcals Calculated 1488-1785kcal (25-30kcal/kg) Protein: Adj wt of IBW Protein Calculated 60g (1g/kg) Fluid: ml 1488-1785ml (1ml/kcal) Nutritional Problem 1. Problem Problem Altered nutrition related laboratory values related to Etiology DM aeb Signs/Symptoms: A1c 6.9H, POC glucose 114-170 since adm Intervention/Recommendation Comments 1. Recommend [id number]. Explained diet to pt. Pt has good understanding of CHO foods and CCHO diet. Pt appears health concious. All questions regarding DM answered. Avg PO intake is adequate. Expected Outcomes/Goals Expected Outcomes/Goals 1. PO intake continue to meet at least 75% of estimated nutritional needs.
[2016-10-06] MEDS: INSULIN ASPART SLIDING SCALE 100 UNITS/ML UNIT SUBQ SCH ×2 (06:49→13:25)
--- NOTE | 2016-10-06 08:55 | General Progress Note ---
Subjective - Review of Systems Service Date: 10/06/16 Subjective: Patient is confused Objective - Results Result Diagrams: 09/29/16 12:29 09/29/16 12:29 Recent Labs: Laboratory Last Values WBC 8.1 Th/cmm (4.8-10.8) 09/29/16 12:29 RBC 4.80 Mil/cmm (3.80-5.20) 09/29/16 12:29 Hgb 13.2 gm/dL (11.7-16.1) 09/29/16 12:29 Hct 40.1 % (35.0-45.0) 09/29/16 12:29 MCV 83.5 fl (81-100) 09/29/16 12:29 MCH 27.5 pg (27.0-31.0) 09/29/16 12:29 MCHC Differential 32.9 pg (28.0-36.0) 09/29/16 12:29 RDW 14.1 % (11.5-20.0) 09/29/16 12:29 Plt Count 329 Th/cmm (150-400) 09/29/16 12:29 MPV 7.5 fl 09/29/16 12:29 Neutrophils % 75.5 % (40.0-80.0) 09/29/16 12:29 Lymphocytes % 17.4 % (20.0-50.0) L 09/29/16 12:29 Monocytes % 6.2 % (2.0-10.0) 09/29/16 12:29 Eosinophils % 0.9 % (0.0-5.0) 09/29/16 12:29 Basophils % 0.0 % (0.0-2.0) 09/29/16 12:29 Sodium 137 mEq/L (136-145) 09/29/16 12:29 Potassium 3.6 mEq/L (3.5-5.1) 09/29/16 12:29 Chloride 105 mEq/L (98-107) 09/29/16 12:29 Carbon Dioxide 27.5 mEq/L (21.0-31.0) 09/29/16 12:29 Anion Gap 8.1 (7.0-16.0) 09/29/16 12:29 BUN 12 mg/dL (7-25) 09/29/16 12:29 Creatinine 0.9 mg/dL (0.6-1.2) 09/29/16 12:29 Est GFR ( Amer) TNP 09/29/16 12:29 Est GFR (Non-Af Amer) TNP 09/29/16 12:29 BUN/Creatinine Ratio 13.3 09/29/16 12:29 Glucose 141 mg/dL (70-105) H 09/29/16 12:29 POC Glucose 154 MG/DL (70 - 105) H 10/06/16 06:17 Hemoglobin A1c % 6.9 % (4.0-6.0) H 09/30/16 10:45 Calcium 9.7 mg/dL (8.6-10.3) 09/29/16 12:29 Total Bilirubin 0.7 mg/dL (0.3-1.0) 09/29/16 12:29 AST 13 U/L (13-39) 09/29/16 12:29 ALT 9 U/L (7-52) 09/29/16 12:29 Alkaline Phosphatase 65 U/L (34-104) 09/29/16 12:29 Creatine Kinase 47 U/L (30-223) 09/29/16 12:29 CK-MB (CK-2) 1.8 ng/mL (0.6-6.3) 09/29/16 12:29 Troponin I < 0.01 ng/mL (0.01-0.05) L 09/29/16 12:29 Total Protein 6.8 gm/dL (6.0-8.3) 09/29/16 12:29 Albumin 4.0 gm/dL (3.7-5.3) 09/29/16 12:29 Globulin 2.8 gm/dL 09/29/16 12:29 Albumin/Globulin Ratio 1.4 (1.0-1.8) 09/29/16 12:29 Free T4 1.45 ng/dL (0.82-1.77) 09/29/16 12:29 Free T3 2.6 pg/mL (2.0-4.4) 09/29/16 12:29 TSH 0.45 uIU/ml (0.34-5.60) 09/29/16 12:29 Urine Source CLEAN C 09/29/16 12:15 Urine Color YELLOW 09/29/16 12:15 Urine Clarity CLEAR (CLEAR) 09/29/16 12:15 Urine pH 7.0 09/29/16 12:15 Ur Specific [place] 1.015 (1.005-1.030) 09/29/16 12:15 Urine Protein NEGATIVE mg/dL (NEGATIVE) 09/29/16 12:15 Urine Glucose (UA) NEGATIVE mg/dL (NEGATIVE) 09/29/16 12:15 Urine Ketones NEGATIVE mg/dL (NEGATIVE) 09/29/16 12:15 Urine Blood NEGATIVE (NEGATIVE) 09/29/16 12:15 Urine Nitrate NEGATIVE (NEGATIVE) 09/29/16 12:15 Urine Bilirubin NEGATIVE (NEGATIVE) 09/29/16 12:15 Urine Urobilinogen 0.2 E.U./dL (0.2 - 1.0) 09/29/16 12:15 Ur Leukocyte Esterase TRACE (NEGATIVE) H 09/29/16 12:15 Urine RBC 0-2 /hpf (0-5) 09/29/16 12:15 Urine WBC 0-2 /hpf (0-5) 09/29/16 12:15 Ur Epithelial Cells FEW /lpf (FEW) 09/29/16 12:15 Urine Bacteria FEW /hpf (NONE SEEN) 09/29/16 12:15 Urine Opiates Screen NEGATIVE (NEGATIVE) 09/29/16 12:15 Urine Methadone Screen NEGATIVE (NEGATIVE) 09/29/16 12:15 Ur Barbiturates Screen NEGATIVE (NEGATIVE) 09/29/16 12:15 Ur Tricyclics Screen NEGATIVE (NEGATIVE) 09/29/16 12:15 Ur Phencyclidine Scrn NEGATIVE (NEGATIVE) 09/29/16 12:15 Amphetamines Screen NEGATIVE (NEGATIVE) 09/29/16 12:15 U Methamphetamines Scrn NEGATIVE (NEGATIVE) 09/29/16 12:15 U Benzodiazepines Scrn POSITIVE (NEGATIVE) H 09/29/16 12:15 U Cocaine Metab Screen NEGATIVE (NEGATIVE) 09/29/16 12:15 U Cannabinoids Screen NEGATIVE (NEGATIVE) 09/29/16 12:15 Ethyl Alcohol < 10 mg/dL (0-10) 09/29/16 12:29 RPR NONREACTIVE (NONREACTIVE) 09/29/16 12:29 - Physical Exam Vitals and I&O: Vital Signs Temp 98.2 F 10/05/16 21:10 Pulse 88 07/13/17 21:10 Resp 20 10/05/16 21:10 BP 151/71 10/05/16 21:10 Pulse Ox 94 10/05/16 21:10 Intake & Output 10/05/16 10/06/16 10/06/16 18:59 06:59 18:59 Intake Total 1200 Balance 1200 Intake: Oral 1200 Other: # Voids 2 # Bowel Movements 1 Stool Characteristics Soft Formed Active Medications: Current Medications Acetaminophen (Tylenol) 650 mg PO Q4HR PRN PRN Reason: Mild Pain / Temp above 100 Stop: 11/28/16 15:47 Acetaminophen/Hydrocodone Bitart ([place] 5mg/325mg) 1 tab PO Q6HR PRN PRN Reason: Pain (Moderate) Stop: 11/28/16 17:03 Last Admin: 10/04/16 14:36 Dose: 1 tab Al Hydrox/Mg Hydrox/Simethicone (Maalox) 30 ml PO Q4HR PRN PRN Reason: GI DISTRESS Stop: 11/28/16 15:47 Divalproex Sodium (Depakote Dr) 125 mg PO Q12HR ANA PRN Reason: Protocol Stop: 12/03/16 20:59 Last Admin: 10/05/16 21:14 Dose: 125 mg Furosemide (Lasix) 40 mg PO DAILY ANA Stop: 11/29/16 08:59 Last Admin: 10/05/16 08:15 Dose: 40 mg Insulin Aspart (Novolog Insulin Sliding Scale) 0 units SUBQ ACHS ANA PRN Reason: Protocol Stop: 11/30/16 11:29 Last Admin: 10/06/16 06:49 Dose: 2 units Levothyroxine Sodium (Synthroid) 0.05 mg PO QAM ANA Stop: 11/29/16 08:59 Last Admin: 10/05/16 08:14 Dose: 0.05 mg Lorazepam (Ativan) 0.5 mg PO Q4HR PRN; Protocol PRN Reason: Anxiety Stop: 10/29/16 15:47 Last Admin: 10/05/16 21:57 Dose: 0.5 mg Lorazepam (Ativan) 1 mg PO DAILY ANA PRN Reason: Protocol Stop: 11/29/16 08:59 Last Admin: 10/05/16 08:16 Dose: 1 mg Losartan Potassium (Cozaar) 25 mg PO DAILY ANA Stop: 11/30/16 08:59 Last Admin: 10/05/16 08:15 Dose: 25 mg Metformin HCl (Glucophage) 500 mg PO DAILY ANA Stop: 11/29/16 09:44 Last Admin: 10/05/16 08:16 Dose: 500 mg Multivitamins/Vitamin C (Theragran) 1 tab PO DAILY ANA Stop: 11/29/16 08:59 Last Admin: 10/05/16 08:15 Dose: 1 tab Potassium Chloride (Klor-Con) 20 meq PO DAILY ANA Stop: 11/29/16 08:59 Last Admin: 10/05/16 08:14 Dose: 20 meq Zolpidem Tartrate (Ambien) 5 mg PO HS PRN PRN Reason: Insomnia Stop: 11/28/16 15:47 Last Admin: 10/05/16 21:57 Dose: 5 mg General: Alert, Other (Confused) HEENT: Atraumatic Neck: Supple Cardiovascular: Regular rate Lungs: Clear to auscultation Abdomen: Bowel sounds, Soft Extremities: Other (No edema) Neurological: Other (Unstable gait) Skin: Other (Warm and dry) Psych/Mental Status: Other (Confused) Assessment/Plan - Assessment Assessment: Patient is awake, calm in no acute distress. Dx: Increased in agitation, Dementia, HTN, DM, Thyroid disorder, - Plan Plan: Patient is follow by psychiatry. Will continue with SNF meds. Nutritional Asmnt/Malnutr-PDOC - Dietary Evaluation Malnutrition Findings (Please click <Entered> for more info): Nutritional Asmnt/Malnutrition Start: 10/03/16 09: 49 Text: Status: Complete Freq: Document 10/03/16 09:49 GSUN (Rec: 10/03/16 10:09 [email or web address]) Nutritional Asmnt/Malnutrition Patient General Information Diagnosis Bipolar Pertinent Medical Hx/Surgical Hx HTN, dementia, psychosis, chronic renal failure, DM, throid disorder Subjective Information 81 year old female from SNF. Visited pt 10/02 during lunch time, pleasant interview. Pt does not appear BMI 42.1. Pt reported CBW around 194lb, she has voluntarily lost 58lb since February 2016. Pt explained she has been health concious, does not lose more than 2lb per week. Pt reported being diabetic and conciously count carbohdyrates. No significant wasting noted. Avg PO intake 75-100% of meals since adm, meeting nutritional needs. Current Diet Order/ Nutrition Support Regular Pertinent Medications Maalox, Lasix, Novolog, Synthroid, Glucophage, Theragran, Klor-Con Pertinent Labs 09/30: A1c 6.9H POC glucose 114-170 since adm Nutritional Hx/Data Height 1.57 m Height (Calculated Centimeters) 157.5 Current Weight (lbs) 87.997 kg Weight (Calculated Kilograms) 88.0 Weight (Calculated Grams) 23034.9 Usual body Weight (lbs) 194 [place] Body Weight 110 Weight Status Obese GI Symptoms Skin Integrity/Comment: Rickey 16. Skin intact. Current %PO Good (75-100%) Estimated Nutritional Goals BEE in Kcals: Adj wt of IBW Calories/Kcals/Kg AdjBW 131lb/59.5kg Kcals Calculated 1488-1785kcal (25-30kcal/kg) Protein: Adj wt of IBW Protein Calculated 60g (1g/kg) Fluid: ml 1488-1785ml (1ml/kcal) Nutritional Problem 1. Problem Problem Altered nutrition related laboratory values related to Etiology DM aeb Signs/Symptoms: A1c 6.9H, POC glucose 114-170 since adm Intervention/Recommendation Comments 1. Recommend [id number]. Explained diet to pt. Pt has good understanding of CHO foods and CCHO diet. Pt appears health concious. All questions regarding DM answered. Avg PO intake is adequate. Expected Outcomes/Goals Expected Outcomes/Goals 1. PO intake continue to meet at least 75% of estimated nutritional needs.
--- NOTE | 2016-10-06 09:20 | Geri Psych History & Physical ---
[facility] Psych History & Physical - History of Present Illness History of Present Illness: History of Present Illness: Patient NEHEMIAS AWAD was admitted to [facility] with PSYCHOSIS. - Substance Abuse History Substance Abuse History: Social History Smoking Status Never smoker Drug Use No Alcohol Use No - Past Medical History Current Medications: Current Medications Acetaminophen (Tylenol) 650 mg PO Q4HR PRN PRN Reason: Mild Pain / Temp above 100 Stop: 11/28/16 15:47 Acetaminophen/Hydrocodone Bitart ([place] 5mg/325mg) 1 tab PO Q6HR PRN PRN Reason: Pain (Moderate) Stop: 11/28/16 17:03 Last Admin: 10/04/16 14:36 Dose: 1 tab Al Hydrox/Mg Hydrox/Simethicone (Maalox) 30 ml PO Q4HR PRN PRN Reason: GI DISTRESS Stop: 11/28/16 15:47 Divalproex Sodium (Depakote Dr) 125 mg PO Q12HR ANA PRN Reason: Protocol Stop: 12/03/16 20:59 Last Admin: 10/05/16 21:14 Dose: 125 mg Furosemide (Lasix) 40 mg PO DAILY ANA Stop: 11/29/16 08:59 Last Admin: 10/05/16 08:15 Dose: 40 mg Insulin Aspart (Novolog Insulin Sliding Scale) 0 units SUBQ ACHS ANA PRN Reason: Protocol Stop: 11/30/16 11:29 Last Admin: 10/06/16 06:49 Dose: 2 units Levothyroxine Sodium (Synthroid) 0.05 mg PO QAM ANA Stop: 11/29/16 08:59 Last Admin: 10/05/16 08:14 Dose: 0.05 mg Lorazepam (Ativan) 0.5 mg PO Q4HR PRN; Protocol PRN Reason: Anxiety Stop: 10/29/16 15:47 Last Admin: 10/05/16 21:57 Dose: 0.5 mg Lorazepam (Ativan) 1 mg PO DAILY ANA PRN Reason: Protocol Stop: 11/29/16 08:59 Last Admin: 10/05/16 08:16 Dose: 1 mg Losartan Potassium (Cozaar) 25 mg PO DAILY ANA Stop: 11/30/16 08:59 Last Admin: 10/05/16 08:15 Dose: 25 mg Metformin HCl (Glucophage) 500 mg PO DAILY ANA Stop: 11/29/16 09:44 Last Admin: 10/05/16 08:16 Dose: 500 mg Multivitamins/Vitamin C (Theragran) 1 tab PO DAILY ANA Stop: 11/29/16 08:59 Last Admin: 10/05/16 08:15 Dose: 1 tab Potassium Chloride (Klor-Con) 20 meq PO DAILY ANA Stop: 11/29/16 08:59 Last Admin: 10/05/16 08:14 Dose: 20 meq Zolpidem Tartrate (Ambien) 5 mg PO HS PRN PRN Reason: Insomnia Stop: 11/28/16 15:47 Last Admin: 10/05/16 21:57 Dose: 5 mg Allergies/Adverse Reactions: Allergies Allergy/AdvReac Type Severity Reaction Status Date / Time No Known Allergies Allergy Verified 09/29/16 12:11 - Physical or Sexual Abuse History Physical or Sexual Abuse History: Social History Sexual intercourse history - Vitals and I&O Vitals and I&O: Vital Signs Temp 98.2 F 10/05/16 21:10 Pulse 88 10/05/16 21:10 Resp 20 10/05/16 21:10 BP 151/71 10/05/16 21:10 Pulse Ox 94 10/05/16 21:10 Intake & Output 10/05/16 10/06/16 10/06/16 18:59 06:59 18:59 Intake Total 1200 Balance 1200 Intake: Oral 1200 Other: # Voids 2 # Bowel Movements 1 Stool Characteristics Soft Formed - Recommendation Discussion of Findings: 1. Risk, benefits and side effects were explained; and patient understood and consented. 2. Patient's questions were answered and patient agrees for me to coordinate the treatment with his/her PCP.
--- NOTE | 2016-10-06 09:35 | Geri Psych Progress Note ---
[facility] Progress Note - Intro Date of Progress Note: 10/06/16 - Assessment Assessment: Mood swings are getting under control. - Vitals, I&O Vitals: Vital Signs - 24 hr 10/05/16 10/05/16 10/05/16 14:00 20:00 21:10 Temp 97.8 F 98.2 F HR 90 88 HR [Radial] 88 RR 18 20 20 BP 118/71 151/71 O2 Sat % 96 94 I&O: Intake & Output 10/04/16 10/05/16 10/06/16 10/07/16 06:59 06:59 06:59 06:59 Intake Total 2640 180 1200 Balance 2640 180 1200 Weight (lbs) 87.997 kg - ROS Psychological ROS: Report: Anxiety, Hostility, Irritability Neurological: Report: No Significant - Objective Psych General Appearance: Report: No acute distress, Older than stated age, Casually dressed Psych Behavior: Report: Alert, Cooperative Psych Speech: Report: Normal in Rate and amount Psych Mood: Report: Angry, Anxious Psych Affect: Report: [place] content of speech, Anxious Psych Thought Process: Report: [place] Psych Cognition: Report: Grossly Intact Psych Insight: Report: Fair Psych Judgement: Report: Fair, Impaired - Plan Plan: to continue supporttive tx and spoke to the staff reg placement. - Review of Relevant Data Review of Relevant Data: I have reviewed the following items and time aman (where applicable) has been applied. Psych Data Reviewed: Meds - Medications Current Medications: Current Medications Acetaminophen (Tylenol) 650 mg PO Q4HR PRN PRN Reason: Mild Pain / Temp above 100 Stop: 11/28/16 15:47 Acetaminophen/Hydrocodone Bitart ([place] 5mg/325mg) 1 tab PO Q6HR PRN PRN Reason: Pain (Moderate) Stop: 11/28/16 17:03 Last Admin: 10/04/16 14:36 Dose: 1 tab Al Hydrox/Mg Hydrox/Simethicone (Maalox) 30 ml PO Q4HR PRN PRN Reason: GI DISTRESS Stop: 11/28/16 15:47 Divalproex Sodium (Depakote Dr) 125 mg PO Q12HR ANA PRN Reason: Protocol Stop: 12/03/16 20:59 Last Admin: 10/05/16 21:14 Dose: 125 mg Furosemide (Lasix) 40 mg PO DAILY ANA Stop: 11/29/16 08:59 Last Admin: 10/05/16 08:15 Dose: 40 mg Insulin Aspart (Novolog Insulin Sliding Scale) 0 units SUBQ ACHS ANA PRN Reason: Protocol Stop: 11/30/16 11:29 Last Admin: 10/06/16 06:49 Dose: 2 units Levothyroxine Sodium (Synthroid) 0.05 mg PO QAM ANA Stop: 11/29/16 08:59 Last Admin: 10/05/16 08:14 Dose: 0.05 mg Lorazepam (Ativan) 0.5 mg PO Q4HR PRN; Protocol PRN Reason: Anxiety Stop: 10/29/16 15:47 Last Admin: 10/05/16 21:57 Dose: 0.5 mg Lorazepam (Ativan) 1 mg PO DAILY ANA PRN Reason: Protocol Stop: 11/29/16 08:59 Last Admin: 10/05/16 08:16 Dose: 1 mg Losartan Potassium (Cozaar) 25 mg PO DAILY ANA Stop: 11/30/16 08:59 Last Admin: 10/05/16 08:15 Dose: 25 mg Metformin HCl (Glucophage) 500 mg PO DAILY ANA Stop: 11/29/16 09:44 Last Admin: 10/05/16 08:16 Dose: 500 mg Multivitamins/Vitamin C (Theragran) 1 tab PO DAILY ANA Stop: 11/29/16 08:59 Last Admin: 10/05/16 08:15 Dose: 1 tab Potassium Chloride (Klor-Con) 20 meq PO DAILY ANA Stop: 11/29/16 08:59 Last Admin: 10/05/16 08:14 Dose: 20 meq Zolpidem Tartrate (Ambien) 5 mg PO HS PRN PRN Reason: Insomnia Stop: 11/28/16 15:47 Last Admin: 10/05/16 21:57 Dose: 5 mg
[2016-10-06] MEDS: Potassium Chloride 20 mEq ER Tab PO SCH (09:37)
[2016-10-06] MEDS: Multivitamin Tab PO SCH (09:39)
[2016-10-06] MEDS: Levothyroxine 0.05 Mg Tab PO SCH (13:25)
== END 2016-10-06 13:15 | disposition home or self-care (01) | DRG 885 ==
LOC: ER 11:59 → GERO 15:01 → UNDODISIN 15:30
PROVIDERS: ADMIT Psychiatry & Neurology Psychiatry; ATTEND Psychiatry & Neurology Psychiatry
DX: F31.60 Bipolar disorder, current episode mixed, unspecified (principal); F03.90 Unspecified dementia, unspecified severity, without behavioral disturbance, psychotic disturbance, mood disturbance, and anxiety; E11.9 Type 2 diabetes mellitus without complications; I10 Essential (primary) hypertension; E78.5 Hyperlipidemia, unspecified; E66.9 Obesity, unspecified; F41.9 Anxiety disorder, unspecified; M62.3 Immobility syndrome (paraplegic); F39 Unspecified mood [affective] disorder; E07.9 Disorder of thyroid, unspecified; Z68.35 Body mass index [BMI] 35.0-35.9, adult; Z79.84 Long term (current) use of oral hypoglycemic drugs
CPT/HCPCS: 36415-UA; 71010-TC; 80053-TC; 80307; 80320-TC; 81001-TC; 82550-TC; 82553; 82948-90; 83036-90; 84439-90; 84443-TC; 84479-90; 84484-TC; 85025-TC; 86592-TC; 93005; G0410; J1815

== ENCOUNTER 2018-03-27 19:34 | Inpatient (IN) | payer MEDICARE, OTHER ==
--- NOTE | 2018-03-27 20:00 | ED Physician Chart ---
ED Chief Complaint/HPI - Patient Information Date Seen:: 03/27/18 Time Seen:: 19:30 Chief Complaint:: Agitation History of Present Illness:: onset x 2 days of agitation and hostile behavior; no report of trauma, SIs, H/As , S/T, neck pain, cough, C/P, SOB, Abd. Pain, A/N/V/D/C, fever, chills, or urinary s/s Allergies:: Allergies Allergy/AdvReac Type Severity Reaction Status Date / Time No Known Allergies Allergy Verified 09/29/16 12:11 Historian:: Patient, EMS Review:: Nurse's Note Reviewed, Old Chart Reviewed, EMS run form Reviewed ED Review of Systems - Review of Systems General/Constitutional: No fever, No chills, No weight loss, No weakness, No diaphoresis, No edema, No loss of appetite Skin: No skin lesions, No rash, No bruising Head: No headache, No light-headedness Eyes: No loss of vision, No pain, No diplopia ENT: No earache, No nasal drainage, No sore throat, No tinnitus Neck: No neck pain, No swelling, No thyromegaly, No stiffness, No mass noted Cardio Vascular: No chest pain, No palpitations, No PND, No orthopnea, No edema Pulmonary: No SOB, No cough, No sputum, No wheezing GI: No nausea, No vomiting, No diarrhea, No pain, No melena, No hematochezia, No constipation, No hematemesis G/U: No dysuria, No frequency, No hematuria, No nacturia Musculoskeletal: No bone or joint pain, No back pain, No muscle pain Endocrine: No polyuria, No polydipsia Psychiatric: Prior psych history, Depression, Anxiety, No suicidal ideation, No homicidal ideation, No auditory hallucination, No visual hallucination Hematopoietic: No bruising, No lymphadenopathy Allergic/Immuno: No urticaria, No angioedema Neurological: No syncope, No focal symptoms, No weakness, No paresthesia, No headache, No seizure, No dizziness, No confusion, No vertigo ED Past Medical History - Past Medical History Obtainable: Yes Past Medical History: HTN, DM, Dyslipidemia, Thyroid disorder Family History: HTN Social History: Non Smoker, No Alcohol, No Drug Use, , Care Facility Surgical History: None Psychiatricy History: Depression, Bipolar Medication: Reviewed Family Medical History - Family Member Mother History Unknown: Yes ED Physical Exam - Physical Examination General/Constitutional: Awake, Well-developed, well-nourished, Alert, No distress, GCS 15, Non-toxic appearing, Ambulatory Head: Atraumatic Eyes: Lids, conjuctiva normal, PERRL, EOMI Skin: Nl inspection, No rash, No skin lesions, No ecchymosis, Well hydrated, No lymphadenopathy ENMT: External ears, nose nl, TM canals nl, Nasal exam nl, Lips, teeth, gums nl , Oropharynx nl, Tonsils nl Neck: Nontender, Full ROM w/o pain, No JVD, No nuchal rigidity, No bruit, No mass, No stridor Respiratory: Nl effort/Exclusion, Clear to Auscultation, No Wheeze/Rhonchi/Rales Cardio Vascular: RRR, No murmur, gallop, rubs, NL S1 S2, Carotid/Femoral/Distal pulses equal bilaterally GI: No tenderness/rebounding/guarding, No organomegaly, No hernia, Normal BS's, Nondistended, No mass/bruits, No McBurney tenderness : No CVA tenderness Extremities: No tenderness or effusion, Full ROM, normal strength in all extremities, No edema, Normal digits & nails Neuro/Psych: Alert/oriented, DTR's symmetric, Normal sensory exam, Normal motor strength, Judgement/insight normal, Mood normal, Normal gait, No focal deficits Other Neuro/Psych comments:: + Psychomotor Agitation; no SIs; Mood/Affect: Labile Misc: Normal back, No paraspinal tenderness ED Labs/Radiology/EKG Results - Lab Results Comments:: Reviewed - EKG Interpretations EKG Time:: 20:11 Rate & Rhythm: 69; NSR Comments:: old ASMI; non-specific st-t changes ED Septic Shock - . Is Septic Shock (SBP<90, OR Lactate>4 mmol\L) present?: No ED Reassessment (Disposition) - Reassessment Reassessment Condition:: Improved - Diagnosis Diagnosis:: Agitation; Medical Clearance; Anemia; Psychosis; Bipolar Disorder - Aftercare/Follow up Instructions Aftercare/Follow-Up Instructions:: Counseled pt regarding lab results/diagnosis & need follow up, Counseled pt & family regarding lab results/diagnosis & need follow up - Patient Disposition Discharge/Transfer:: Acute Care w/in this hosp Admitted to:: [facility] Condition at Disposition:: Stable, Improved
[2018-03-27 20:06] LABS: % EOSINOPHILS 1.7 % (0.0-5.0); EOSINOPHILE ABSOLUTE 0.1 Th/cmm (0.1-0.4); HEMATOCRIT 34.9 % (41.0-60); LYMPHOCYTE ABSOLUTE 1.5 Th/cmm (1.5-3.0); MEAN PLATELET VOLUME 6.9 fl; MONOCYTE ABSOLUTE 0.8 Th/cmm (0.3-1.0); WHITE BLOOD COUNT 8.4 Th/cmm (4.8-10.8)
[2018-03-27 20:08] LABS: % BASOPHILS 0.5 % (0.0-2.0); % LYMPHOCYTES 17.8 % (20.0-50.0); % MONOCYTES 9.5 % (2.0-10.0); % NEUTROPHILS 70.5 % (40.0-80.0); HEMOGLOBIN 11.4 gm/dL (12-16); MEAN CELL VOLUME 86.6 fl (81-100); MEAN CORPUSCULAR HEMOGLOBIN 28.4 pg (27.0-31.0); MEAN CORPUSCULAR HGB CONC 32.7 pg (28.0-36.0); PLATELET COUNT 277 Th/cmm (150-400); RED BLOOD COUNT 4.03 Mil/cmm (3.80-5.20); RED CELL DISTRIBUTION WIDTH 14.1 % (11.5-20.0)
[2018-03-27 20:23] LABS: ACETAMINOPHEN < 10.0 ug/mL (10.0-30.0); ALB/GLOB RATIO 1.4 (1.0-1.8); ALBUMIN 3.5 gm/dL (3.7-5.3); ALKALINE PHOSPHATASE 53 U/L (34-104); ANION GAP 11.2 (7.0-16.0); BILIRUBIN,TOTAL 0.4 mg/dL (0.3-1.0); BUN - UREA NITROGEN 16 mg/dL (7-25); CALCIUM SERUM 9.2 mg/dL (8.6-10.3); CARBON DIOXIDE 27.8 mEq/L (21.0-31.0); CHLORIDE 101 mEq/L (98-107); CHOLESTEROL 126 mg/dL (<200); CREATININE - SERUM 0.6 mg/dL (0.6-1.2); GLUCOSE 125 mg/dL (70-105); HDL -HIGH DENSITY LIPOPROTEIN 52 mg/dL (23-92); SGOT 13 U/L (13-39); SGPT/ALT 7 U/L (7-52); SODIUM SERUM 136 mEq/L (136-145); TOTAL PROTEIN,SERUM 6.1 gm/dL (6.0-8.3); TRIGLYCERIDES 73 mg/dL (<150)
[2018-03-27 20:24] LABS: SALICYLATES (ASPIRIN) < 25.0 mg/L (30.0-100.0)
[2018-03-27 22:35] VITALS: BP 156/61
[2018-03-27] MEDS ORDERED: Albuterol/Ipratropium Neb 3 ML AERS HHN PRN (22:45)
[2018-03-27] MEDS ORDERED: Hydrocodone/APAP 5mg/325mg Tab PO PRN (22:45)
[2018-03-27 22:57] LABS: URINE SOURCE RANDOM
[2018-03-27 23:05] LABS: URINE BILIRUBIN NEGATIVE (NEGATIVE); URINE BLOOD TRACE (NEGATIVE); URINE GLUCOSE (UA) NEGATIVE (NEGATIVE); URINE KETONE NEGATIVE (NEGATIVE); URINE LEUKOCYTE ESTERASE MODERATE (NEGATIVE); URINE MICROSCOPIC INDICATED? YES; URINE NITRATE NEGATIVE (NEGATIVE); URINE PROTEIN NEGATIVE (NEGATIVE); URINE UROBILINOGEN 0.2 E.U./dL (0.2 - 1.0)
[2018-03-27 23:06] LABS: URINE CLARITY HAZY (CLEAR); URINE COLOR YELLOW
[2018-03-27 23:11] LABS: AMPHETAMINE URINE NEGATIVE (NEGATIVE); BARBITURATES URINE NEGATIVE (NEGATIVE); BENZODIAZEPINES QUAL URINE NEGATIVE (NEGATIVE); CANNABINOID THC NEGATIVE (NEGATIVE); COCAINE METABOLITE QUAL URINE NEGATIVE (NEGATIVE); METHADONE URINE NEGATIVE (NEGATIVE); METHAMPHETAMINES QUAL URINE NEGATIVE (NEGATIVE); OPIATES (MORPHINE) QUAL. URINE POSITIVE (NEGATIVE); PHENCYCLIDINE (PCP) URINE NEGATIVE (NEGATIVE); TRICYCLICS (TCA) QUAL. URINE NEGATIVE (NEGATIVE)
[2018-03-27 23:14] LABS: URINE BACTERIA MANY /hpf (NONE SEEN); URINE EPITHELIAL CELLS MODERATE /lpf (FEW); URINE RBC 0-2 /hpf (0-5)
[2018-03-28] MEDS: Levothyroxine 0.05 Mg Tab PO SCH (06:43)
[2018-03-28] MEDS: Aspirin 81mg Chewable Tab PO SCH (08:31)
[2018-03-28] MEDS: Multivitamin w/ Minerals Tab PO SCH (08:31)
--- NOTE | 2018-03-28 08:34 | History and Physical ---
History of Present Illness - HPI Chief Complaint: Increased in agitation HPI: Per SNF report patient has having 2 days with increased in agitation and hostile behavior. Vital Signs: Last Vital Signs Temp 97.1 F 03/28/18 06:56 Pulse 71 03/28/18 06:56 Resp 18 03/28/18 06:56 BP 160/84 03/28/18 06:56 Pulse Ox 96 03/28/18 06:56 Past Medical History Cardiovascular: Report: CAD, CHF, HTN, Other (Old ID) Pulmonary: Report: No Pertinent Hx INFORMATION SYSTEMS SECURITY MANAGER: Report: Dementia GI: Report: No Pertinent Hx Psych: Report: Bipolar, Depression, Psychosis Musculoskeletal: Report: No Pertinent Hx Rheumatologic: Report: No pertinent Hx Infectious Disease: Report: No Pertinent Hx Renal/: Report: No Pertinent Hx Endocrine: Report: Diabetes, Hypothyroidism Dermatology: Report: No Pertinent Hx - Past Surgical History Past Surgical History: No pertinent Hx Family Medical History - Family Member Mother History Unknown: Yes Ethnicity: Unknown Living Status: Unknown Hx Family Cancer: (unknown) Hx Family Coronary Artery Disease: (unknown) Hx Family Congestive Heart Failure: (unknown) Hx Family Hypertension: (unknown) Hx Family Stroke: (unknown) Hx Family Diabetes: (unknown) Hx Family Seizures: (unknown) Hx Family Dementia: (unknown) Hx Family AIDS: (unknown) Hx Family HIV: No Hx Family COPD: (unknown) Hx Family Hepatitis: (unknown) Hx Family Psychiatric Problems: (unknown) Hx Family Tuberculosis: (unknown) Social History Smoke: No Alcohol: None Drugs: None Lives: [facility] Domestic Violence: Negative - Medications Home Medications: Home Medication Medication Instructions Recorded Type Acetaminophen [Tylenol] 650 mg PO Q4HR PRN 03/27/18 History Albuterol/Ipratropium Neb [Duoneb 3 ml HHN Q4HR PRN 03/27/18 History Neb] Aspirin [Aspirin Chewable] 81 mg PO DAILY 03/27/18 History Atorvastatin Calcium [Lipitor] 40 mg PO HS 03/27/18 History Cranberry Fruit [Cranberry] 450 mg PO TID 03/27/[address] [Depakote DR] 125 mg PO Q12H 03/27/18 History Docusate Sodium [Colace] 100 mg PO BID 03/27/18 History Furosemide [Lasix] 40 mg PO DAILY 03/27/18 History Hydrocodone/Acetaminophen [Chromo 1 each PO Q6H PRN 03/27/18 History 5-325 Tablet] Insulin Human Regular [NovoLIN R] See Protocol SUBQ DAILY 03/27/18 History Levothyroxine [Synthroid] 0.05 mg PO QDAC 03/27/18 History Lorazepam 1 mg PO Q8H PRN 03/27/18 History Losartan Potassium 25 mg PO DAILY 03/27/18 History Metformin HCl 250 mg PO BID 03/27/18 History Multivitamin w/ Minerals 1 tab PO DAILY 03/27/18 History [Theragran M] Potassium Chloride ER [Klor-Con] 20 meq PO DAILY 03/27/18 History Propylene Glycol [Systane Balance] 1 drop EACH EYE QID 03/27/18 History Rivaroxaban [Xarelto] 20 mg PO DAILY 03/27/18 History Sertraline HCl [Zoloft] 100 mg PO DAILY 03/27/18 History Zolpidem Tartrate [Ambien] 5 mg PO HS 03/27/18 History - Allergies Allergies/Adverse Reactions: Allergies Allergy/AdvReac Type Severity Reaction Status Date / Time No Known Allergies Allergy Verified 09/29/16 12:11 Review of Systems - Review of Systems Constitutional: Report: No Significant Eyes: Report: No Significant ENT: Report: No Significant Respiratory: Report: No Significant Cardiovascular: Report: No Significant Gastrointestinal: Report: No Significant Genitourinary: Report: No Significant Musculoskeletal: Report: No Significant Skin: Report: No Significant Neurological: Report: Weakness Physical Exam - Physical Exam HEENT: Report: Ears Nose Throat within normal limits Neck: Report: Within normal limits Cardiovascular Systems: Report: Regular, Rate and Rhythm Respiratory: Report: Breath Sounds are within normal limits Abdomen: Report: Non-tender to palpation Back: Report: Inspection of back is within normal limits. Extremities: Report: Non-tender to palpation. Skin: Report: Color of skin is within normal limits Neuro/Psych: Report: Disoriented to name time or place - Lab Results All Lab Results last 24 hours: Laboratory Results - last 24 hr 03/27/18 03/27/18 03/27/18 19:59 19:59 19:59 WBC 8.4 RBC 4.03 Hgb 11.4 L Hct 34.9 L MCV 86.6 MCH 28.4 MCHC Differential 32.7 RDW 14.1 Plt Count 277 MPV 6.9 Neutrophils % 70.5 Lymphocytes % 17.8 L Monocytes % 9.5 Eosinophils % 1.7 Basophils % 0.5 Sodium 136 Potassium 4.0 Chloride 101 Carbon Dioxide 27.8 Anion Gap 11.2 BUN 16 Creatinine 0.6 Est GFR ( Amer) TNP Est GFR (Non-Af Amer) TNP BUN/Creatinine Ratio 26.7 Glucose 125 H Calcium 9.2 Total Bilirubin 0.4 AST 13 ALT 7 Alkaline Phosphatase 53 Troponin I Total Protein 6.1 Albumin 3.5 L Globulin 2.6 Albumin/Globulin Ratio 1.4 Triglycerides 73 Cholesterol 126 LDL Cholesterol Direct 58 L HDL Cholesterol 52 TSH 2.03 Urine Source Urine Color Urine Clarity Urine pH Ur Specific [place] Urine Protein Urine Glucose (UA) Urine Ketones Urine Blood Urine Nitrate Urine Bilirubin Urine Urobilinogen Ur Leukocyte Esterase Urine RBC Urine WBC Ur Epithelial Cells Urine Bacteria Salicylates < 25.0 L Urine Opiates Screen Urine Methadone Screen Acetaminophen < 10.0 L Ur Barbiturates Screen Valproic Acid Ur Tricyclics Screen Ur Phencyclidine Scrn Amphetamines Screen U Methamphetamines Scrn U Benzodiazepines Scrn U Cocaine Metab Screen U Cannabinoids Screen Ethyl Alcohol < 10 03/27/18 03/27/18 03/27/18 19:59 19:59 20:40 WBC RBC Hgb Hct MCV MCH MCHC Differential RDW Plt Count MPV Neutrophils % Lymphocytes % Monocytes % Eosinophils % Basophils % Sodium Potassium Chloride Carbon Dioxide Anion Gap BUN Creatinine Est GFR ( Amer) Est GFR (Non-Af Amer) BUN/Creatinine Ratio Glucose Calcium Total Bilirubin AST ALT Alkaline Phosphatase Troponin I < 0.01 L Total Protein Albumin Globulin Albumin/Globulin Ratio Triglycerides Cholesterol LDL Cholesterol Direct HDL Cholesterol TSH Urine Source RANDOM Urine Color YELLOW Urine Clarity HAZY Urine pH 7.0 Ur Specific [place] <= 1.005 Urine Protein NEGATIVE Urine Glucose (UA) NEGATIVE Urine Ketones NEGATIVE Urine Blood TRACE Urine Nitrate NEGATIVE Urine Bilirubin NEGATIVE Urine Urobilinogen 0.2 Ur Leukocyte Esterase MODERATE H Urine RBC 0-2 Urine WBC 6-10 H Ur Epithelial Cells MODERATE Urine Bacteria MANY H Salicylates Urine Opiates Screen Urine Methadone Screen Acetaminophen Ur Barbiturates Screen Valproic Acid 17.1 L Ur Tricyclics Screen Ur Phencyclidine Scrn Amphetamines Screen U Methamphetamines Scrn U Benzodiazepines Scrn U Cocaine Metab Screen U Cannabinoids Screen Ethyl Alcohol 03/27/18 20:40 WBC RBC Hgb Hct MCV MCH MCHC Differential RDW Plt Count MPV Neutrophils % Lymphocytes % Monocytes % Eosinophils % Basophils % Sodium Potassium Chloride Carbon Dioxide Anion Gap BUN Creatinine Est GFR ( Amer) Est GFR (Non-Af Amer) BUN/Creatinine Ratio Glucose Calcium Total Bilirubin AST ALT Alkaline Phosphatase Troponin I Total Protein Albumin Globulin Albumin/Globulin Ratio Triglycerides Cholesterol LDL Cholesterol Direct HDL Cholesterol TSH Urine Source Urine Color Urine Clarity Urine pH Ur Specific [place] Urine Protein Urine Glucose (UA) Urine Ketones Urine Blood Urine Nitrate Urine Bilirubin Urine Urobilinogen Ur Leukocyte Esterase Urine RBC Urine WBC Ur Epithelial Cells Urine Bacteria Salicylates Urine Opiates Screen POSITIVE H Urine Methadone Screen NEGATIVE Acetaminophen Ur Barbiturates Screen NEGATIVE Valproic Acid Ur Tricyclics Screen NEGATIVE Ur Phencyclidine Scrn NEGATIVE Amphetamines Screen NEGATIVE U Methamphetamines Scrn NEGATIVE U Benzodiazepines Scrn NEGATIVE U Cocaine Metab Screen NEGATIVE U Cannabinoids Screen NEGATIVE Ethyl Alcohol - Assessment Assessment: Patient is awake, alert, calm, not oriented. UA shows UTI. Dx: Increased in agitation, UTI, Anemia, DM, HTN, Hypothyroidism - Plan Plan: Patient is foll;ow by Psychiatry, Continue with SNF meds, Bactrim is added for UTI.
[2018-03-28] MEDS ORDERED: Potassium Chloride 20 mEq ER Tab PO SCH (09:00)
[2018-03-28] MEDS ORDERED: PROPYLENE GLYCOL EACH EYE SCH (09:00)
[2018-03-28] MEDS ORDERED: INSULIN HUMAN REGULAR 100 UNITS/ML UNIT SUBQ SCH (09:00)
[2018-03-28] MEDS ORDERED: Non-Formulary Item 1 EA (Rivaroxaban [Xarelto] 20 MG) PO SCH (09:00)
[2018-03-28] MEDS ORDERED: Non-Formulary Item 1 EA (Cranberry Fruit [Cranberry] 450 MG) PO SCH (09:00)
[2018-03-28] MEDS: Sulfamethoxazole/TMP 800/160mg Tab PO SCH ×2 (12:11→16:34)
[2018-03-28] MEDS: Peg-400/Propylene Ophth Soln 5 mL Bottle EACH EYE SCH ×3 (15:24→21:26)
--- NOTE | 2018-03-28 20:28 | Psychiatric Evaluation ---
DATE OF SERVICE: 03/28/2018 IDENTIFYING DATA: The patient is an 82-year-old woman, [facility]. Information obtained by directly interviewing the patient as well as reviewing the admission papers and they are reliable. JUSTIFICATION OF HOSPITALIZATION: The patient has been admitted here from the [facility] for acute psychosis and agitation. Staff was spoken to. The patient is interviewed and as per the information, the patient has been reported to have been getting agitated for the past 2 weeks. When I spoke to the patient, the patient is stating that a lot of people were crying and they told her that she needs to just speak to a damper worker and she came in here. The patient is stating that she does not like the [facility] and does not want to go back. The patient is getting easily agitated. PAST PSYCHIATRIC HISTORY: The patient is reported to have been hospitalized once before. MEDICAL HISTORY: Physical examination is requested to be done by Dr. Dorado. SUBSTANCE ABUSE HISTORY: None. PHYSICAL OR SEXUAL ABUSE HISTORY: None. LEGAL PROBLEMS: None at this time. STRENGTH AND ASSETS: The patient is motivated. MENTAL STATUS EXAMINATION: The patient is an 82-year-old woman looking her stated age, thin built, superficially cooperative. Eye contact is noted to be poor. Mood is noted to be anxious and depressed. Affect is constricted. The patient has no insight into her illness. The patient has been having difficult time to cope with the stress. Short and long-term memory are noted to be impaired. The patient is very paranoid and is going on a tangent. The patient is reported to have been out of control and hence the patient is going to be closely monitored over here for stabilization. DIAGNOSTIC IMPRESSION: AXIS I: 1. Psychotic disorder, not otherwise specified. 2. Dementia and behavioral change, secondary trait. AXIS II: None. AXIS III: As per Dr. Dorado. IMMEDIATE TREATMENT PLAN: The patient is going to be observed on inpatient unit, provided with supportive psychotherapy. The patient is going to be closely monitored. Once stabilized, the patient is going to be discharged to the [facility]iary facility for further followup. JOB# [id number]
[2018-03-28] MEDS: INSULIN ASPART SLIDING SCALE 100 UNITS/ML UNIT SUBQ SCH (21:04)
[2018-03-29] MEDS: Levothyroxine 0.05 Mg Tab PO SCH (06:32)
[2018-03-29] MEDS: INSULIN ASPART SLIDING SCALE 100 UNITS/ML UNIT SUBQ SCH ×2 (06:33→20:37)
[2018-03-29] MEDS: Multivitamin w/ Minerals Tab PO SCH (09:19)
[2018-03-29] MEDS: Aspirin 81mg Chewable Tab PO SCH (09:19)
[2018-03-29] MEDS: Sulfamethoxazole/TMP 800/160mg Tab PO SCH ×2 (09:20→16:25)
--- NOTE | 2018-03-29 09:20 | General Progress Note ---
Subjective - Review of Systems Service Date: 03/29/18 Subjective: patient is confused Objective - Results Result Diagrams: 03/27/18 19:59 03/27/18 19:59 Recent Labs: Laboratory Last Values WBC 8.4 Th/cmm (4.8-10.8) 03/27/18 19:59 RBC 4.03 Mil/cmm (3.80-5.20) 03/27/18 19:59 Hgb 11.4 gm/dL (12-16) L 03/27/18 19:59 Hct 34.9 % (41.0-60) L 03/27/18 19:59 MCV 86.6 fl (81-100) 03/27/18 19:59 MCH 28.4 pg (27.0-31.0) 03/27/18 19:59 MCHC Differential 32.7 pg (28.0-36.0) 03/27/18 19:59 RDW 14.1 % (11.5-20.0) 03/27/18 19:59 Plt Count 277 Th/cmm (150-400) 03/27/18 19:59 MPV 6.9 fl 03/27/18 19:59 Neutrophils % 70.5 % (40.0-80.0) 03/27/18 19:59 Lymphocytes % 17.8 % (20.0-50.0) L 03/27/18 19:59 Monocytes % 9.5 % (2.0-10.0) 03/27/18 19:59 Eosinophils % 1.7 % (0.0-5.0) 03/27/18 19:59 Basophils % 0.5 % (0.0-2.0) 03/27/18 19:59 Sodium 136 mEq/L (136-145) 03/27/18 19:59 Potassium 4.0 mEq/L (3.5-5.1) 03/27/18 19:59 Chloride 101 mEq/L (98-107) 03/27/18 19:59 Carbon Dioxide 27.8 mEq/L (21.0-31.0) 03/27/18 19:59 Anion Gap 11.2 (7.0-16.0) 03/27/18 19:59 BUN 16 mg/dL (7-25) 03/27/18 19:59 Creatinine 0.6 mg/dL (0.6-1.2) 03/27/18 19:59 Est GFR ( Amer) TNP 03/27/18 19:59 Est GFR (Non-Af Amer) TNP 03/27/18 19:59 BUN/Creatinine Ratio 26.7 03/27/18 19:59 Glucose 125 mg/dL (70-105) H 03/27/18 19:59 Calcium 9.2 mg/dL (8.6-10.3) 03/27/18 19:59 Total Bilirubin 0.4 mg/dL (0.3-1.0) 03/27/18 19:59 AST 13 U/L (13-39) 03/27/18 19:59 ALT 7 U/L (7-52) 03/27/18 19:59 Alkaline Phosphatase 53 U/L (34-104) 03/27/18 19:59 Troponin I < 0.01 ng/mL (0.01-0.05) L 03/27/18 19:59 Total Protein 6.1 gm/dL (6.0-8.3) 03/27/18 19:59 Albumin 3.5 gm/dL (3.7-5.3) L 03/27/18 19:59 Globulin 2.6 gm/dL 03/27/18 19:59 Albumin/Globulin Ratio 1.4 (1.0-1.8) 03/27/18 19:59 Triglycerides 73 mg/dL (<150) 03/27/18 19:59 Cholesterol 126 mg/dL (<200) 03/27/18 19:59 LDL Cholesterol Direct 58 mg/dL (75-193) L 03/27/18 19:59 HDL Cholesterol 52 mg/dL (23-92) 03/27/18 19:59 TSH 2.03 uIU/ml (0.34-5.60) 03/27/18 19:59 Urine Source RANDOM 03/27/18 20:40 Urine Color YELLOW 03/27/18 20:40 Urine Clarity HAZY (CLEAR) 03/27/18 20:40 Urine pH 7.0 (4.6 - 8.0) 03/27/18 20:40 Ur Specific [place] <= 1.005 (1.005-1.030) 03/27/18 20:40 Urine Protein NEGATIVE mg/dL (NEGATIVE) 03/27/18 20:40 Urine Glucose (UA) NEGATIVE mg/dL (NEGATIVE) 03/27/18 20:40 Urine Ketones NEGATIVE mg/dL (NEGATIVE) 03/27/18 20:40 Urine Blood TRACE (NEGATIVE) 03/27/18 20:40 Urine Nitrate NEGATIVE (NEGATIVE) 03/27/18 20:40 Urine Bilirubin NEGATIVE (NEGATIVE) 03/27/18 20:40 Urine Urobilinogen 0.2 E.U./dL (0.2 - 1.0) 03/27/18 20:40 Ur Leukocyte Esterase MODERATE (NEGATIVE) H 03/27/18 20:40 Urine RBC 0-2 /hpf (0-5) 03/27/18 20:40 Urine WBC 6-10 /hpf (0-5) H 03/27/18 20:40 Ur Epithelial Cells MODERATE /lpf (FEW) 03/27/18 20:40 Urine Bacteria MANY /hpf (NONE SEEN) H 03/27/18 20:40 Salicylates < 25.0 mg/L (30.0-100.0) L 03/27/18 19:59 Urine Opiates Screen POSITIVE (NEGATIVE) H 03/27/18 20:40 Urine Methadone Screen NEGATIVE (NEGATIVE) 03/27/18 20:40 Acetaminophen < 10.0 ug/mL (10.0-30.0) L 03/27/18 19:59 Ur Barbiturates Screen NEGATIVE (NEGATIVE) 03/27/18 20:40 Valproic Acid 17.1 ug/mL (50.0-100.0) L 03/27/18 19:59 Ur Tricyclics Screen NEGATIVE (NEGATIVE) 03/27/18 20:40 Ur Phencyclidine Scrn NEGATIVE (NEGATIVE) 03/27/18 20:40 Amphetamines Screen NEGATIVE (NEGATIVE) 03/27/18 20:40 U Methamphetamines Scrn NEGATIVE (NEGATIVE) 03/27/18 20:40 U Benzodiazepines Scrn NEGATIVE (NEGATIVE) 03/27/18 20:40 U Cocaine Metab Screen NEGATIVE (NEGATIVE) 03/27/18 20:40 U Cannabinoids Screen NEGATIVE (NEGATIVE) 03/27/18 20:40 Ethyl Alcohol < 10 mg/dL (0-10) 03/27/18 19:59 RPR NONREACTIVE (NONREACTIVE) 03/27/18 19:59 - Physical Exam Vitals and I&O: Vital Signs Temp 98.1 F 03/28/18 20:00 Pulse 79 03/29/18 07:03 Resp 18 03/29/18 07:03 BP 137/67 03/28/18 20:00 Pulse Ox 96 03/29/18 07:03 Intake & Output 03/28/18 03/29/18 03/29/18 18:59 06:59 18:59 Other: # Voids 2 # Bowel Movements 0 Active Medications: Current Medications Acetaminophen (Tylenol) 650 mg PO Q4HR PRN PRN Reason: Pain or Fever >101 Stop: 05/26/18 22:44 Acetaminophen/Hydrocodone Bitart ([place] 5mg/325mg) 1 tab PO Q6H PRN PRN Reason: Pain (Moderate) Stop: 05/26/18 22:44 Albuterol/Ipratropium (Duoneb Neb) 3 ml HHN Q4HRT PRN PRN Reason: Wheezing Stop: 05/26/18 22:44 Aspirin (Aspirin Chewable) 81 mg PO DAILY [facility] Stop: 05/27/18 08:59 Last Admin: 03/28/18 08:31 Dose: 81 mg Atorvastatin Calcium (Lipitor) 40 mg PO HS [facility] Stop: 05/27/18 20:59 Last Admin: 03/28/18 21:02 Dose: 40 mg Divalproex Sodium (Depakote Dr) 125 mg PO Q12H [facility]; Protocol Stop: 05/26/18 22:44 Last Admin: 03/28/18 23:43 Dose: 125 mg Docusate Sodium (Colace) 100 mg PO BID [facility] Stop: 05/27/18 08:59 Last Admin: 03/28/18 16:34 Dose: 100 mg Furosemide (Lasix) 40 mg PO DAILY [facility] Stop: 05/27/18 08:59 Last Admin: 03/28/18 08:31 Dose: 40 mg Insulin Aspart (Novolog Insulin Sliding Scale) 0 units SUBQ BID@0600,2100 [facility]; Protocol Stop: 05/27/18 20:59 Last Admin: 03/29/18 06:33 Dose: Not Given Levothyroxine Sodium (Synthroid) 0.05 mg PO QDAC [facility] Stop: 05/27/18 07:29 Last Admin: 03/29/18 06:32 Dose: 0.05 mg Lorazepam (Ativan) 0.5 mg PO Q6HR PRN; Protocol PRN Reason: Anxiety Stop: 04/26/18 21:59 Losartan Potassium (Cozaar) 25 mg PO DAILY [facility] Stop: 05/27/18 08:59 Last Admin: 03/28/18 08:32 Dose: 25 mg Metformin HCl (Glucophage) 250 mg PO BID [facility] Stop: 05/27/18 08:59 Last Admin: 03/28/18 16:34 Dose: 250 mg Propylene Glycol (Systane Ophth Soln) 1 drop EACH EYE QID [facility] Stop: 05/27/18 12:59 Last Admin: 03/28/18 21:26 Dose: 1 drop Quetiapine Fumarate (Seroquel) 12.5 mg PO HS [facility]; Protocol Stop: 05/27/18 20:59 Last Admin: 03/28/18 21:03 Dose: 12.5 mg Rivaroxaban (Xarelto) 20 mg PO DAILY [facility] Stop: 05/27/18 08:59 Last Admin: 03/28/18 08:34 Dose: 20 mg Sertraline HCl (Zoloft) 50 mg PO DAILY [facility] Stop: 05/28/18 08:59 Trimethoprim/Sulfamethoxazole (Bactrim Ds) 1 tab PO BID [facility] Stop: 05/27/18 08:59 Last Admin: 03/28/18 16:34 Dose: 1 tab Zolpidem Tartrate (Ambien) 5 mg PO HS [facility] Stop: 05/27/18 20:59 Last Admin: 03/28/18 21:03 Dose: 5 mg General: Alert, No acute distress HEENT: Atraumatic Neck: Supple Cardiovascular: Regular rate Lungs: Clear to auscultation Abdomen: Bowel sounds, Soft Extremities: Other (No edema) Neurological: Other (unstable gait) Skin: Other (warm and dry) Psych/Mental Status: Other (confused) Assessment/Plan - Assessment Assessment: Patient is awake, alert, calm, not oriented. UA shows UTI. Dx: Increased in agitation, UTI, Anemia, DM, HTN, Hypothyroidism - Plan Plan: Patient is foll;ow by Psychiatry, Continue with SNF meds, Bactrim is added for UTI.
[2018-03-29] MEDS: Peg-400/Propylene Ophth Soln 5 mL Bottle EACH EYE SCH ×4 (09:28→20:36)
--- NOTE | 2018-03-29 12:32 | Progress Notes ---
DATE: 03/29/2018 PSYCHIATRIC PROGRESS NOTE SUBJECTIVE: Staff was spoken to. The patient is interviewed. Mood is noted to be irritable. Affect is constricted. The patient continues to be very paranoid. Insight and judgment are noted to be still impaired. Impulse control is noted to be limited. The patient has been having difficult time to cope with the stress. ASSESSMENT: The patient is still psychotic. PLAN: To continue the patient with the Seroquel and followup. JOB# [id number]
[2018-03-29] MEDS ORDERED: Probiotic Screen MC PRN (15:54)
[2018-03-30] MEDS: Levothyroxine 0.05 Mg Tab PO SCH (06:35)
[2018-03-30] MEDS: INSULIN ASPART SLIDING SCALE 100 UNITS/ML UNIT SUBQ SCH ×2 (06:36→21:20)
--- NOTE | 2018-03-30 09:32 | Progress Notes ---
DATE: 03/30/2018 SUBJECTIVE: Staff was spoken to. The patient is still very paranoid, isolative, and withdrawn. The patient is alert and oriented to only the place, but not to time and the patient is not able to make a reasonable decision as to her care is concern. ASSESSMENT: The patient is still psychotic. PLAN: To continue supportive therapy. Increase the dose on the Seroquel to 25 mg and followup. JOB# [id number]
[2018-03-30] MEDS: Aspirin 81mg Chewable Tab PO SCH (10:32)
[2018-03-30] MEDS: Lactobacillus Rhamnosus GG 15 Billion CFU CAP.SPRINK PO SCH (10:34)
[2018-03-30] MEDS: Sulfamethoxazole/TMP 800/160mg Tab PO SCH ×2 (10:35→17:17)
[2018-03-30] MEDS: Multivitamin w/ Minerals Tab PO SCH (10:37)
[2018-03-30] MEDS: Peg-400/Propylene Ophth Soln 5 mL Bottle EACH EYE SCH ×4 (10:38→21:21)
--- NOTE | 2018-03-30 11:32 | General Progress Note ---
Subjective - Review of Systems Service Date: 03/30/18 Subjective: patient is confused Objective - Results Result Diagrams: 03/27/18 19:59 03/27/18 19:59 Recent Labs: Laboratory Last Values WBC 8.4 Th/cmm (4.8-10.8) 03/27/18 19:59 RBC 4.03 Mil/cmm (3.80-5.20) 03/27/18 19:59 Hgb 11.4 gm/dL (12-16) L 03/27/18 19:59 Hct 34.9 % (41.0-60) L 03/27/18 19:59 MCV 86.6 fl (81-100) 03/27/18 19:59 MCH 28.4 pg (27.0-31.0) 03/27/18 19:59 MCHC Differential 32.7 pg (28.0-36.0) 03/27/18 19:59 RDW 14.1 % (11.5-20.0) 03/27/18 19:59 Plt Count 277 Th/cmm (150-400) 03/27/18 19:59 MPV 6.9 fl 03/27/18 19:59 Neutrophils % 70.5 % (40.0-80.0) 03/27/18 19:59 Lymphocytes % 17.8 % (20.0-50.0) L 03/27/18 19:59 Monocytes % 9.5 % (2.0-10.0) 03/27/18 19:59 Eosinophils % 1.7 % (0.0-5.0) 03/27/18 19:59 Basophils % 0.5 % (0.0-2.0) 03/27/18 19:59 Sodium 136 mEq/L (136-145) 03/27/18 19:59 Potassium 4.0 mEq/L (3.5-5.1) 03/27/18 19:59 Chloride 101 mEq/L (98-107) 03/27/18 19:59 Carbon Dioxide 27.8 mEq/L (21.0-31.0) 03/27/18 19:59 Anion Gap 11.2 (7.0-16.0) 03/27/18 19:59 BUN 16 mg/dL (7-25) 03/27/18 19:59 Creatinine 0.6 mg/dL (0.6-1.2) 03/27/18 19:59 Est GFR ( Amer) TNP 03/27/18 19:59 Est GFR (Non-Af Amer) TNP 03/27/18 19:59 BUN/Creatinine Ratio 26.7 03/27/18 19:59 Glucose 125 mg/dL (70-105) H 03/27/18 19:59 Calcium 9.2 mg/dL (8.6-10.3) 03/27/18 19:59 Total Bilirubin 0.4 mg/dL (0.3-1.0) 03/27/18 19:59 AST 13 U/L (13-39) 03/27/18 19:59 ALT 7 U/L (7-52) 03/27/18 19:59 Alkaline Phosphatase 53 U/L (34-104) 03/27/18 19:59 Troponin I < 0.01 ng/mL (0.01-0.05) L 03/27/18 19:59 Total Protein 6.1 gm/dL (6.0-8.3) 03/27/18 19:59 Albumin 3.5 gm/dL (3.7-5.3) L 03/27/18 19:59 Globulin 2.6 gm/dL 03/27/18 19:59 Albumin/Globulin Ratio 1.4 (1.0-1.8) 03/27/18 19:59 Triglycerides 73 mg/dL (<150) 03/27/18 19:59 Cholesterol 126 mg/dL (<200) 03/27/18 19:59 LDL Cholesterol Direct 58 mg/dL (75-193) L 03/27/18 19:59 HDL Cholesterol 52 mg/dL (23-92) 03/27/18 19:59 TSH 2.03 uIU/ml (0.34-5.60) 03/27/18 19:59 Urine Source RANDOM 03/27/18 20:40 Urine Color YELLOW 03/27/18 20:40 Urine Clarity HAZY (CLEAR) 03/27/18 20:40 Urine pH 7.0 (4.6 - 8.0) 03/27/18 20:40 Ur Specific [place] <= 1.005 (1.005-1.030) 03/27/18 20:40 Urine Protein NEGATIVE mg/dL (NEGATIVE) 03/27/18 20:40 Urine Glucose (UA) NEGATIVE mg/dL (NEGATIVE) 03/27/18 20:40 Urine Ketones NEGATIVE mg/dL (NEGATIVE) 03/27/18 20:40 Urine Blood TRACE (NEGATIVE) 03/27/18 20:40 Urine Nitrate NEGATIVE (NEGATIVE) 03/27/18 20:40 Urine Bilirubin NEGATIVE (NEGATIVE) 03/27/18 20:40 Urine Urobilinogen 0.2 E.U./dL (0.2 - 1.0) 03/27/18 20:40 Ur Leukocyte Esterase MODERATE (NEGATIVE) H 03/27/18 20:40 Urine RBC 0-2 /hpf (0-5) 03/27/18 20:40 Urine WBC 6-10 /hpf (0-5) H 03/27/18 20:40 Ur Epithelial Cells MODERATE /lpf (FEW) 03/27/18 20:40 Urine Bacteria MANY /hpf (NONE SEEN) H 03/27/18 20:40 Salicylates < 25.0 mg/L (30.0-100.0) L 03/27/18 19:59 Urine Opiates Screen POSITIVE (NEGATIVE) H 03/27/18 20:40 Urine Methadone Screen NEGATIVE (NEGATIVE) 03/27/18 20:40 Acetaminophen < 10.0 ug/mL (10.0-30.0) L 03/27/18 19:59 Ur Barbiturates Screen NEGATIVE (NEGATIVE) 03/27/18 20:40 Valproic Acid 17.1 ug/mL (50.0-100.0) L 03/27/18 19:59 Ur Tricyclics Screen NEGATIVE (NEGATIVE) 03/27/18 20:40 Ur Phencyclidine Scrn NEGATIVE (NEGATIVE) 03/27/18 20:40 Amphetamines Screen NEGATIVE (NEGATIVE) 03/27/18 20:40 U Methamphetamines Scrn NEGATIVE (NEGATIVE) 03/27/18 20:40 U Benzodiazepines Scrn NEGATIVE (NEGATIVE) 03/27/18 20:40 U Cocaine Metab Screen NEGATIVE (NEGATIVE) 03/27/18 20:40 U Cannabinoids Screen NEGATIVE (NEGATIVE) 03/27/18 20:40 Ethyl Alcohol < 10 mg/dL (0-10) 03/27/18 19:59 RPR NONREACTIVE (NONREACTIVE) 03/27/18 19:59 - Physical Exam Vitals and I&O: Vital Signs Temp 97.6 F 03/30/18 06:19 Pulse 74 03/30/18 10:33 Resp 16 03/30/18 08:19 BP 149/66 03/30/18 10:34 Pulse Ox 97 03/30/18 08:19 Intake & Output 03/29/18 03/30/18 03/30/18 18:59 06:59 18:59 Intake Total 1200 240 Balance 1200 240 Intake: Oral 1200 240 Other: # Voids 6 # Bowel Movements 1 Active Medications: Current Medications Acetaminophen (Tylenol) 650 mg PO Q4HR PRN PRN Reason: Pain or Fever >101 Stop: 05/26/18 22:44 Last Admin: 03/30/18 10:36 Dose: 650 mg Acetaminophen/Hydrocodone Bitart ([place] 5mg/325mg) 1 tab PO Q6H PRN PRN Reason: Pain (Moderate) Stop: 05/26/18 22:44 Albuterol/Ipratropium (Duoneb Neb) 3 ml HHN Q4HRT PRN PRN Reason: Wheezing Stop: 05/26/18 22:44 Aspirin (Aspirin Chewable) 81 mg PO DAILY [facility] Stop: 05/27/18 08:59 Last Admin: 03/30/18 10:32 Dose: 81 mg Atorvastatin Calcium (Lipitor) 40 mg PO HS [facility] Stop: 05/27/18 20:59 Last Admin: 03/29/18 20:36 Dose: 40 mg Divalproex Sodium (Depakote Dr) 125 mg PO Q12H [facility]; Protocol Stop: 05/26/18 22:44 Last Admin: 03/30/18 10:37 Dose: 125 mg Docusate Sodium (Colace) 100 mg PO BID [facility] Stop: 05/27/18 08:59 Last Admin: 03/30/18 10:37 Dose: 100 mg Furosemide (Lasix) 40 mg PO DAILY [facility] Stop: 05/27/18 08:59 Last Admin: 03/30/18 10:34 Dose: 40 mg Insulin Aspart (Novolog Insulin Sliding Scale) 0 units SUBQ BID@0600,2100 [facility]; Protocol Stop: 05/27/18 20:59 Last Admin: 03/30/18 06:36 Dose: Not Given Lactobacillus Rhamnosus (Culturelle 15b) 1 each PO DAILY [facility] Stop: 05/29/18 08:59 Last Admin: 03/30/18 10:34 Dose: 1 each Levothyroxine Sodium (Synthroid) 0.05 mg PO QDAC [facility] Stop: 05/27/18 07:29 Last Admin: 03/30/18 06:35 Dose: 0.05 mg Lorazepam (Ativan) 0.5 mg PO Q6HR PRN; Protocol PRN Reason: Anxiety Stop: 04/26/18 21:59 Losartan Potassium (Cozaar) 25 mg PO DAILY [facility] Stop: 05/27/18 08:59 Last Admin: 03/30/18 10:33 Dose: 25 mg Metformin HCl (Glucophage) 250 mg PO BID [facility] Stop: 05/27/18 08:59 Last Admin: 03/30/18 10:35 Dose: 250 mg Miscellaneous (Probiotic Screen) 1 ea MC PRN PRN PRN Reason: PROTOCOL Stop: 05/28/18 15:53 Mupirocin (Bactroban Oint) 1 appl NS BID [facility] Stop: 04/03/18 09:01 Last Admin: 03/30/18 10:38 Dose: 1 appl Propylene Glycol (Systane Ophth Soln) 1 drop EACH EYE QID [facility] Stop: 05/27/18 12:59 Last Admin: 03/30/18 10:38 Dose: 1 drop Quetiapine Fumarate (Seroquel) 25 mg PO HS [facility]; Protocol Stop: 05/29/18 20:59 Rivaroxaban (Xarelto) 20 mg PO DAILY [facility] Stop: 05/27/18 08:59 Last Admin: 03/30/18 10:32 Dose: 20 mg Sertraline HCl (Zoloft) 50 mg PO DAILY [facility] Stop: 05/28/18 08:59 Last Admin: 03/30/18 10:33 Dose: 50 mg Trimethoprim/Sulfamethoxazole (Bactrim Ds) 1 tab PO BID [facility] Stop: 05/27/18 08:59 Last Admin: 03/30/18 10:35 Dose: 1 tab Zolpidem Tartrate (Ambien) 5 mg PO HS [facility] Stop: 05/27/18 20:59 Last Admin: 03/29/18 20:37 Dose: 5 mg General: Alert, No acute distress HEENT: Atraumatic Neck: Supple Cardiovascular: Regular rate Lungs: Clear to auscultation Abdomen: Bowel sounds, Soft Extremities: Other (No edema) Neurological: Other (unstable gait) Skin: Other (warm and dry) Psych/Mental Status: Other (confused) Assessment/Plan - Assessment Assessment: Patient is awake, alert, calm, not oriented. UA shows UTI. Dx: Increased in agitation, UTI, Anemia, DM, HTN, Hypothyroidism - Plan Plan: Patient is foll;ow by Psychiatry, Continue with SNF meds, Bactrim is added for UTI. Nutritional Asmnt/Malnutr-PDOC - Dietary Evaluation Malnutrition Findings (Please click <Entered> for more info): Nutritional Asmnt/Malnutrition Start: 03/29/18 13: 43 Text: Status: Complete Freq: Protocol: Document 03/29/18 13:43 [email or web address] (Rec: 03/29/18 13:50 [email or web address]) Nutritional Asmnt/Malnutrition Patient General Information Nutritional Screening Moderate Risk Diagnosis psychosis Pertinent Medical Hx/Surgical Hx CAD, CHF, HTN, old [place], dementia, bipolar, depression, psychosis, DM, hypothyroidism Subjective Information Pt was seen eating in dining room at time of visit. Pt is slightly confused, also states she is pre-diabetic and needs to watch what she eats. PO intake is 50-75% per EMR. Current Diet Order/ Nutrition Support CCHO 60 gm Pertinent Medications lipitor, colace, lasix, novolog, synthroid, cozaar, glucophage, seroquel Pertinent Labs 1/2 glucose 125, alb 3.5, LDL 58 Nutritional Hx/Data Height 1.57 m Height (Calculated Centimeters) 157.5 Current Weight (lbs) 68.039 kg Weight (Calculated Kilograms) 68.0 Weight (Calculated Grams) 84395.9 [place] Body Weight 110 Body Mass Index (BMI) 27.4 Weight Status Overweight GI Symptoms GI Symptoms None Last BM not indicated Difficult in: None Food Allergies No Skin Integrity/Comment: intact, sharri 17 Current %PO Fair (50-74%) Estimated Nutritional Goals BEE in Kcals: Using Current wt Calories/Kcals/Kg 23-27 Kcals Calculated 4308-2701 Protein: Using Current wt Protein g/k.8-1 Protein Calculated 54-68 Fluid: ml 8827-0082 (1ml/kcal) Nutritional Problem No current Nutrition Prob Problem N/A Malnutrition Alert Is there a minimum of two criteria No selected? Query Text:Check all the applicable criteria. A minimum of two criteria are recommended for diagnosis of either severe or non-severe malnutrition. Malnutrition Related to Morbid Obesity Malnutrition related to morbid obesity No Intervention/Recommendation Comments 1. Continue with CCHO 60gm diet as ordered. 2. Monitor PO intake, wt, labs and skin integrity 3. F/U as low risk in 7 days, PO check 04/01 Expected Outcomes/Goals Expected Outcomes/Goals Goal: PO intake to meet at least 75% of nutritional needs and improved labs. Reviewed by Ruba Vega RD
[2018-03-30] MEDS: Lidocaine 5% Patch TD SCH (14:21)
[2018-03-30] MEDS: Betamethasone/Clotrimazole Cream 15 gm Tube TP SCH (17:13)
--- NOTE | 2018-03-30 18:37 | Consultation ---
DATE OF CONSULTATION: 03/29/2018 REFERRING PHYSICIAN: Beverly Welsh MD TYPE OF CONSULTATION: Psychology. HISTORY OF PRESENT ILLNESS: The patient is an 82-year-old female. The patient is a resident of [facility]. The following is by record review and by the patient's self-report. The patient is being admitted due to acute psychosis and agitation. The patient reports that she believes that there was some legal issue at her [place] facility. The staff at the patient's facility report that she has become more agitated in the past 2 weeks. The patient is stating that she does not want to return to her [place] facility. The patient denied any suicidal ideation, plan or intention at the time of this clinical interview. PAST MEDICAL HISTORY: Please see history and physical by Dr. Hoff. PAST PSYCHIATRIC HISTORY: The patient has at least 1 previous psychiatric hospitalization. According to record review, the patient is under the care of a psychiatrist and psychologist at her placement. SUBSTANCE ABUSE HISTORY: The patient denies any history of alcohol, tobacco, or illicit drug use. PSYCHOSOCIAL HISTORY: The patient is a resident of [facility]. The patient did not answer questions about marital status or family relationships or members involved with her care. The patient did not answer questions about occupational or educational history or catholic affiliation. The patient denied any history of physical or sexual abuse. She believes that she needs to speak to a regulator tester to be discharged from this hospital and also to transfer her care to another [place] [facility] [place] facility. MENTAL STATUS EXAMINATION: The patient appears to be her stated age. The patient's attitude was superficially cooperative. Eye contact is poor. Mood is anxious and depressed. Affect is constricted. Thought process shows to be confused. The patient denied any auditory or visual hallucinations. She denies any suicidal ideation, plan or intention. There is possible paranoid ideation. The patient's thought process is also markedly tangential. The patient's behavior has been difficult to redirect on the unit and is easily agitated. Staff reports she is denying help. Impulse control is poor. Concentration is poor. Sensorium is alert and oriented to self only. The patient has no insight into her illness. The patient did not participate in the memory assessment. It appears that the patient's short term memory and long-term memory are possibly impaired. This needs further evaluation. The patient did not participate in the interpretation of proverbs. Insight is poor. Judgment is compromised. DIAGNOSTIC IMPRESSION: AXIS I: 1. Psychotic disorder, not otherwise specified. 2. Dementia with behavioral disturbance. AXIS II: Deferred. AXIS III: Per Dr. Dorado. TREATMENT PLAN: The patient has been seen by Dr. Welsh for psychiatric evaluation and for the management of the patient's psychotropic medications. We will provide supportive psychotherapy to include reality orientation, differentiation, and integration. We will provide coping strategies for phase of life issues. We will provide motivational enhancement for the patient to become compliant and stay compliant with all aspects of her care and treatment. We will provide de-escalation and limit setting. We will provide stress management to assist the patient in increasing her frustration tolerance. We will encourage the patient to be able to demonstrate emotional and self-regulation prior to her discharge. Thank you, Dr. Welsh, for this consult and the opportunity to participate in this patient's care. [facility]# [id number] [facility]
[2018-03-31] MEDS: INSULIN ASPART SLIDING SCALE 100 UNITS/ML UNIT SUBQ SCH ×2 (05:37→21:25)
[2018-03-31] MEDS: Levothyroxine 0.05 Mg Tab PO SCH (06:58)
[2018-03-31] MEDS: Multivitamin w/ Minerals Tab PO SCH (09:41)
[2018-03-31] MEDS: Aspirin 81mg Chewable Tab PO SCH (09:42)
[2018-03-31] MEDS: Betamethasone/Clotrimazole Cream 15 gm Tube TP SCH (09:43)
[2018-03-31] MEDS: Lidocaine 5% Patch TD SCH (09:43)
[2018-03-31] MEDS: Lactobacillus Rhamnosus GG 15 Billion CFU CAP.SPRINK PO SCH (09:43)
[2018-03-31] MEDS: Sulfamethoxazole/TMP 800/160mg Tab PO SCH ×2 (09:43→16:36)
[2018-03-31] MEDS: Peg-400/Propylene Ophth Soln 5 mL Bottle EACH EYE SCH ×3 (09:44→21:30)
--- NOTE | 2018-03-31 10:54 | General Progress Note ---
Subjective - Review of Systems Service Date: 03/31/18 Subjective: patient is confused Objective - Results Result Diagrams: 03/27/18 19:59 03/27/18 19:59 Recent Labs: Laboratory Last Values WBC 8.4 Th/cmm (4.8-10.8) 03/27/18 19:59 RBC 4.03 Mil/cmm (3.80-5.20) 03/27/18 19:59 Hgb 11.4 gm/dL (12-16) L 03/27/18 19:59 Hct 34.9 % (41.0-60) L 03/27/18 19:59 MCV 86.6 fl (81-100) 03/27/18 19:59 MCH 28.4 pg (27.0-31.0) 03/27/18 19:59 MCHC Differential 32.7 pg (28.0-36.0) 03/27/18 19:59 RDW 14.1 % (11.5-20.0) 03/27/18 19:59 Plt Count 277 Th/cmm (150-400) 03/27/18 19:59 MPV 6.9 fl 03/27/18 19:59 Neutrophils % 70.5 % (40.0-80.0) 03/27/18 19:59 Lymphocytes % 17.8 % (20.0-50.0) L 03/27/18 19:59 Monocytes % 9.5 % (2.0-10.0) 03/27/18 19:59 Eosinophils % 1.7 % (0.0-5.0) 03/27/18 19:59 Basophils % 0.5 % (0.0-2.0) 03/27/18 19:59 Sodium 136 mEq/L (136-145) 03/27/18 19:59 Potassium 4.0 mEq/L (3.5-5.1) 03/27/18 19:59 Chloride 101 mEq/L (98-107) 03/27/18 19:59 Carbon Dioxide 27.8 mEq/L (21.0-31.0) 03/27/18 19:59 Anion Gap 11.2 (7.0-16.0) 03/27/18 19:59 BUN 16 mg/dL (7-25) 03/27/18 19:59 Creatinine 0.6 mg/dL (0.6-1.2) 03/27/18 19:59 Est GFR ( Amer) TNP 03/27/18 19:59 Est GFR (Non-Af Amer) TNP 03/27/18 19:59 BUN/Creatinine Ratio 26.7 03/27/18 19:59 Glucose 125 mg/dL (70-105) H 03/27/18 19:59 Calcium 9.2 mg/dL (8.6-10.3) 03/27/18 19:59 Total Bilirubin 0.4 mg/dL (0.3-1.0) 03/27/18 19:59 AST 13 U/L (13-39) 03/27/18 19:59 ALT 7 U/L (7-52) 03/27/18 19:59 Alkaline Phosphatase 53 U/L (34-104) 03/27/18 19:59 Troponin I < 0.01 ng/mL (0.01-0.05) L 03/27/18 19:59 Total Protein 6.1 gm/dL (6.0-8.3) 03/27/18 19:59 Albumin 3.5 gm/dL (3.7-5.3) L 03/27/18 19:59 Globulin 2.6 gm/dL 03/27/18 19:59 Albumin/Globulin Ratio 1.4 (1.0-1.8) 03/27/18 19:59 Triglycerides 73 mg/dL (<150) 03/27/18 19:59 Cholesterol 126 mg/dL (<200) 03/27/18 19:59 LDL Cholesterol Direct 58 mg/dL (75-193) L 03/27/18 19:59 HDL Cholesterol 52 mg/dL (23-92) 03/27/18 19:59 TSH 2.03 uIU/ml (0.34-5.60) 03/27/18 19:59 Urine Source RANDOM 03/27/18 20:40 Urine Color YELLOW 03/27/18 20:40 Urine Clarity HAZY (CLEAR) 03/27/18 20:40 Urine pH 7.0 (4.6 - 8.0) 03/27/18 20:40 Ur Specific [place] <= 1.005 (1.005-1.030) 03/27/18 20:40 Urine Protein NEGATIVE mg/dL (NEGATIVE) 03/27/18 20:40 Urine Glucose (UA) NEGATIVE mg/dL (NEGATIVE) 03/27/18 20:40 Urine Ketones NEGATIVE mg/dL (NEGATIVE) 03/27/18 20:40 Urine Blood TRACE (NEGATIVE) 03/27/18 20:40 Urine Nitrate NEGATIVE (NEGATIVE) 03/27/18 20:40 Urine Bilirubin NEGATIVE (NEGATIVE) 03/27/18 20:40 Urine Urobilinogen 0.2 E.U./dL (0.2 - 1.0) 03/27/18 20:40 Ur Leukocyte Esterase MODERATE (NEGATIVE) H 03/27/18 20:40 Urine RBC 0-2 /hpf (0-5) 03/27/18 20:40 Urine WBC 6-10 /hpf (0-5) H 03/27/18 20:40 Ur Epithelial Cells MODERATE /lpf (FEW) 03/27/18 20:40 Urine Bacteria MANY /hpf (NONE SEEN) H 03/27/18 20:40 Salicylates < 25.0 mg/L (30.0-100.0) L 03/27/18 19:59 Urine Opiates Screen POSITIVE (NEGATIVE) H 03/27/18 20:40 Urine Methadone Screen NEGATIVE (NEGATIVE) 03/27/18 20:40 Acetaminophen < 10.0 ug/mL (10.0-30.0) L 03/27/18 19:59 Ur Barbiturates Screen NEGATIVE (NEGATIVE) 03/27/18 20:40 Valproic Acid 17.1 ug/mL (50.0-100.0) L 03/27/18 19:59 Ur Tricyclics Screen NEGATIVE (NEGATIVE) 03/27/18 20:40 Ur Phencyclidine Scrn NEGATIVE (NEGATIVE) 03/27/18 20:40 Amphetamines Screen NEGATIVE (NEGATIVE) 03/27/18 20:40 U Methamphetamines Scrn NEGATIVE (NEGATIVE) 03/27/18 20:40 U Benzodiazepines Scrn NEGATIVE (NEGATIVE) 03/27/18 20:40 U Cocaine Metab Screen NEGATIVE (NEGATIVE) 03/27/18 20:40 U Cannabinoids Screen NEGATIVE (NEGATIVE) 03/27/18 20:40 Ethyl Alcohol < 10 mg/dL (0-10) 03/27/18 19:59 RPR NONREACTIVE (NONREACTIVE) 03/27/18 19:59 - Physical Exam Vitals and I&O: Vital Signs Temp 98.4 F 03/31/18 06:31 Pulse 70 03/31/18 07:00 Resp 14 03/31/18 07:00 BP 137/57 03/31/18 06:31 Pulse Ox 94 03/31/18 07:00 Intake & Output 03/30/18 03/31/18 03/31/18 18:59 06:59 18:59 Intake Total 1350 240 Balance 1350 240 Weight (lbs) 68.039 kg Intake: Oral 1350 240 Other: # Voids 4 3 # Bowel Movements 0 0 Weight Source Bedscale Active Medications: Current Medications Acetaminophen (Tylenol) 650 mg PO Q4HR PRN PRN Reason: Pain or Fever >101 Stop: 05/26/18 22:44 Last Admin: 03/30/18 10:36 Dose: 650 mg Acetaminophen/Hydrocodone Bitart ([place] 5mg/325mg) 1 tab PO Q6H PRN PRN Reason: Pain (Moderate) Stop: 05/26/18 22:44 Albuterol/Ipratropium (Duoneb Neb) 3 ml HHN Q4HRT PRN PRN Reason: Wheezing Stop: 05/26/18 22:44 Aspirin (Aspirin Chewable) 81 mg PO DAILY [facility] Stop: 05/27/18 08:59 Last Admin: 03/31/18 09:42 Dose: 81 mg Atorvastatin Calcium (Lipitor) 40 mg PO HS [facility] Stop: 05/27/18 20:59 Last Admin: 03/30/18 21:20 Dose: 40 mg Betamethasone/Clotrimazole (Lotrisone Cream) 1 appl TP BID [facility] Stop: 05/29/18 16:59 Last Admin: 03/31/18 09:43 Dose: 1 appl Divalproex Sodium (Depakote Dr) 125 mg PO Q12H [facility]; Protocol Stop: 05/26/18 22:44 Last Admin: 03/30/18 22:34 Dose: 125 mg Docusate Sodium (Colace) 100 mg PO BID [facility] Stop: 05/27/18 08:59 Last Admin: 03/31/18 09:42 Dose: 100 mg Furosemide (Lasix) 40 mg PO DAILY [facility] Stop: 05/27/18 08:59 Last Admin: 03/31/18 09:43 Dose: Not Given Insulin Aspart (Novolog Insulin Sliding Scale) 0 units SUBQ BID@0600,2100 [facility]; Protocol Stop: 05/27/18 20:59 Last Admin: 03/31/18 05:37 Dose: Not Given Lactobacillus Rhamnosus (Culturelle 15b) 1 each PO DAILY [facility] Stop: 05/29/18 08:59 Last Admin: 03/31/18 09:43 Dose: 1 each Levothyroxine Sodium (Synthroid) 0.05 mg PO QDAC [facility] Stop: 05/27/18 07:29 Last Admin: 03/31/18 06:58 Dose: 0.05 mg Lidocaine (Lidoderm 5% Patch) 1 patch TD DAILY [facility] Stop: 05/29/18 12:59 Last Admin: 03/31/18 09:43 Dose: 1 patch Lorazepam (Ativan) 0.5 mg PO Q6HR PRN; Protocol PRN Reason: Anxiety Stop: 04/26/18 21:59 Losartan Potassium (Cozaar) 25 mg PO DAILY [facility] Stop: 05/27/18 08:59 Last Admin: 03/31/18 09:44 Dose: Not Given Metformin HCl (Glucophage) 250 mg PO BID [facility] Stop: 05/27/18 08:59 Last Admin: 03/31/18 09:41 Dose: 250 mg Miscellaneous (Probiotic Screen) 1 ea MC PRN PRN PRN Reason: PROTOCOL Stop: 05/28/18 15:53 Mupirocin (Bactroban Oint) 1 appl NS BID [facility] Stop: 04/03/18 09:01 Last Admin: 03/31/18 09:44 Dose: 1 appl Propylene Glycol (Systane Ophth Soln) 1 drop EACH EYE QID [facility] Stop: 05/27/18 12:59 Last Admin: 03/31/18 09:44 Dose: 1 drop Quetiapine Fumarate (Seroquel) 25 mg PO HS [facility]; Protocol Stop: 05/29/18 20:59 Last Admin: 03/30/18 21:24 Dose: 25 mg Rivaroxaban (Xarelto) 20 mg PO DAILY [facility] Stop: 05/27/18 08:59 Last Admin: 03/31/18 09:41 Dose: 20 mg Sertraline HCl (Zoloft) 50 mg PO DAILY [facility] Stop: 05/28/18 08:59 Last Admin: 03/31/18 09:42 Dose: 50 mg Trimethoprim/Sulfamethoxazole (Bactrim Ds) 1 tab PO BID [facility] Stop: 05/27/18 08:59 Last Admin: 03/31/18 09:43 Dose: 1 tab Zolpidem Tartrate (Ambien) 5 mg PO HS [facility] Stop: 05/27/18 20:59 Last Admin: 03/30/18 21:24 Dose: 5 mg General: Alert, No acute distress HEENT: Atraumatic Neck: Supple Cardiovascular: Regular rate Lungs: Clear to auscultation Abdomen: Bowel sounds, Soft Extremities: Other (No edema) Neurological: Other (unstable gait) Skin: Other (warm and dry) Psych/Mental Status: Other (confused) Assessment/Plan - Assessment Assessment: Patient is awake, alert, calm, not oriented. UA shows UTI. Dx: Increased in agitation, UTI, Anemia, DM, HTN, Hypothyroidism - Plan Plan: Patient is foll;ow by Psychiatry, Continue with SNF meds, Bactrim is added for UTI. Nutritional Asmnt/Malnutr-PDOC - Dietary Evaluation Malnutrition Findings (Please click <Entered> for more info): Nutritional Asmnt/Malnutrition Start: 03/29/18 13: 43 Text: Status: Complete Freq: Protocol: Document 03/29/18 13:43 [email or web address] (Rec: 03/29/18 13:50 [email or web address]) Nutritional Asmnt/Malnutrition Patient General Information Nutritional Screening Moderate Risk Diagnosis psychosis Pertinent Medical Hx/Surgical Hx CAD, CHF, HTN, old [place], dementia, bipolar, depression, psychosis, DM, hypothyroidism Subjective Information Pt was seen eating in dining room at time of visit. Pt is slightly confused, also states she is pre-diabetic and needs to watch what she eats. PO intake is 50-75% per EMR. Current Diet Order/ Nutrition Support CCHO 60 gm Pertinent Medications lipitor, colace, lasix, novolog, synthroid, cozaar, glucophage, seroquel Pertinent Labs 1/2 glucose 125, alb 3.5, LDL 58 Nutritional Hx/Data Height 1.57 m Height (Calculated Centimeters) 157.5 Current Weight (lbs) 68.039 kg Weight (Calculated Kilograms) 68.0 Weight (Calculated Grams) [address].[address] [place] Body Weight 110 Body Mass Index (BMI) 27.4 Weight Status Overweight GI Symptoms GI Symptoms None Last BM not indicated Difficult in: None Food Allergies No Skin Integrity/Comment: sharri valdes 17 Current %PO Fair (50-74%) Estimated Nutritional Goals BEE in Kcals: Using Current wt Calories/Kcals/Kg 23-27 Kcals Calculated 9495-2271 Protein: Using Current wt Protein g/k.8-1 Protein Calculated 54-68 Fluid: ml 8439-9955 (1ml/kcal) Nutritional Problem No current Nutrition Prob Problem N/A Malnutrition Alert Is there a minimum of two criteria No selected? Query Text:Check all the applicable criteria. A minimum of two criteria are recommended for diagnosis of either severe or non-severe malnutrition. Malnutrition Related to Morbid Obesity Malnutrition related to morbid obesity No Intervention/Recommendation Comments 1. [facility] diet as ordered. 2. Monitor PO intake, wt, labs and skin integrity 3. F/U as low risk in 7 days, PO check 04/01 Expected Outcomes/Goals Expected Outcomes/Goals Goal: PO intake to meet at least 75% of nutritional needs and improved labs. Reviewed by Ruba Vega RD
--- NOTE | 2018-03-31 15:39 | Progress Notes ---
DATE: 03/31/2018 SUBJECTIVE: Staff was spoken to. The patient is interviewed. Mood is noted to be irritable. Affect is constricted. The patient is alert and oriented to time, place and person. The patient has been stating that she has been in the hospital and she likes this place. She does not want to go back. The patient's coping skills at this time are noted to be very poor. The patient has been paranoid and is talking about the [place] and [employer]. ASSESSMENT: The patient is still psychotic. PLAN: To continue the patient with the supportive therapy, encouraged the patient to verbalize the concerns rather than to act out. JOB# [id number]
[2018-04-01] MEDS: Levothyroxine 0.05 Mg Tab PO SCH (06:37)
[2018-04-01] MEDS: INSULIN ASPART SLIDING SCALE 100 UNITS/ML UNIT SUBQ SCH ×2 (06:39→21:44)
--- NOTE | 2018-04-01 09:12 | General Progress Note ---
Subjective - Review of Systems Service Date: 04/01/18 Subjective: patient is confused Objective - Results Result Diagrams: 03/27/18 19:59 03/27/18 19:59 Recent Labs: Laboratory Last Values WBC 8.4 Th/cmm (4.8-10.8) 03/27/18 19:59 RBC 4.03 Mil/cmm (3.80-5.20) 03/27/18 19:59 Hgb 11.4 gm/dL (12-16) L 03/27/18 19:59 Hct 34.9 % (41.0-60) L 03/27/18 19:59 MCV 86.6 fl (81-100) 03/27/18 19:59 MCH 28.4 pg (27.0-31.0) 03/27/18 19:59 MCHC Differential 32.7 pg (28.0-36.0) 03/27/18 19:59 RDW 14.1 % (11.5-20.0) 03/27/18 19:59 Plt Count 277 Th/cmm (150-400) 03/27/18 19:59 MPV 6.9 fl 03/27/18 19:59 Neutrophils % 70.5 % (40.0-80.0) 03/27/18 19:59 Lymphocytes % 17.8 % (20.0-50.0) L 03/27/18 19:59 Monocytes % 9.5 % (2.0-10.0) 03/27/18 19:59 Eosinophils % 1.7 % (0.0-5.0) 03/27/18 19:59 Basophils % 0.5 % (0.0-2.0) 03/27/18 19:59 Sodium 136 mEq/L (136-145) 03/27/18 19:59 Potassium 4.0 mEq/L (3.5-5.1) 03/27/18 19:59 Chloride 101 mEq/L (98-107) 03/27/18 19:59 Carbon Dioxide 27.8 mEq/L (21.0-31.0) 03/27/18 19:59 Anion Gap 11.2 (7.0-16.0) 03/27/18 19:59 BUN 16 mg/dL (7-25) 03/27/18 19:59 Creatinine 0.6 mg/dL (0.6-1.2) 03/27/18 19:59 Est GFR ( Amer) TNP 03/27/18 19:59 Est GFR (Non-Af Amer) TNP 03/27/18 19:59 BUN/Creatinine Ratio 26.7 03/27/18 19:59 Glucose 125 mg/dL (70-105) H 03/27/18 19:59 Calcium 9.2 mg/dL (8.6-10.3) 03/27/18 19:59 Total Bilirubin 0.4 mg/dL (0.3-1.0) 03/27/18 19:59 AST 13 U/L (13-39) 03/27/18 19:59 ALT 7 U/L (7-52) 03/27/18 19:59 Alkaline Phosphatase 53 U/L (34-104) 03/27/18 19:59 Troponin I < 0.01 ng/mL (0.01-0.05) L 03/27/18 19:59 Total Protein 6.1 gm/dL (6.0-8.3) 03/27/18 19:59 Albumin 3.5 gm/dL (3.7-5.3) L 03/27/18 19:59 Globulin 2.6 gm/dL 03/27/18 19:59 Albumin/Globulin Ratio 1.4 (1.0-1.8) 03/27/18 19:59 Triglycerides 73 mg/dL (<150) 03/27/18 19:59 Cholesterol 126 mg/dL (<200) 03/27/18 19:59 LDL Cholesterol Direct 58 mg/dL (75-193) L 03/27/18 19:59 HDL Cholesterol 52 mg/dL (23-92) 03/27/18 19:59 TSH 2.03 uIU/ml (0.34-5.60) 03/27/18 19:59 Urine Source RANDOM 03/27/18 20:40 Urine Color YELLOW 03/27/18 20:40 Urine Clarity HAZY (CLEAR) 03/27/18 20:40 Urine pH 7.0 (4.6 - 8.0) 03/27/18 20:40 Ur Specific [place] <= 1.005 (1.005-1.030) 03/27/18 20:40 Urine Protein NEGATIVE mg/dL (NEGATIVE) 03/27/18 20:40 Urine Glucose (UA) NEGATIVE mg/dL (NEGATIVE) 03/27/18 20:40 Urine Ketones NEGATIVE mg/dL (NEGATIVE) 03/27/18 20:40 Urine Blood TRACE (NEGATIVE) 03/27/18 20:40 Urine Nitrate NEGATIVE (NEGATIVE) 03/27/18 20:40 Urine Bilirubin NEGATIVE (NEGATIVE) 03/27/18 20:40 Urine Urobilinogen 0.2 E.U./dL (0.2 - 1.0) 03/27/18 20:40 Ur Leukocyte Esterase MODERATE (NEGATIVE) H 03/27/18 20:40 Urine RBC 0-2 /hpf (0-5) 03/27/18 20:40 Urine WBC 6-10 /hpf (0-5) H 03/27/18 20:40 Ur Epithelial Cells MODERATE /lpf (FEW) 03/27/18 20:40 Urine Bacteria MANY /hpf (NONE SEEN) H 03/27/18 20:40 Salicylates < 25.0 mg/L (30.0-100.0) L 03/27/18 19:59 Urine Opiates Screen POSITIVE (NEGATIVE) H 03/27/18 20:40 Urine Methadone Screen NEGATIVE (NEGATIVE) 03/27/18 20:40 Acetaminophen < 10.0 ug/mL (10.0-30.0) L 03/27/18 19:59 Ur Barbiturates Screen NEGATIVE (NEGATIVE) 03/27/18 20:40 Valproic Acid 17.1 ug/mL (50.0-100.0) L 03/27/18 19:59 Ur Tricyclics Screen NEGATIVE (NEGATIVE) 03/27/18 20:40 Ur Phencyclidine Scrn NEGATIVE (NEGATIVE) 03/27/18 20:40 Amphetamines Screen NEGATIVE (NEGATIVE) 03/27/18 20:40 U Methamphetamines Scrn NEGATIVE (NEGATIVE) 03/27/18 20:40 U Benzodiazepines Scrn NEGATIVE (NEGATIVE) 03/27/18 20:40 U Cocaine Metab Screen NEGATIVE (NEGATIVE) 03/27/18 20:40 U Cannabinoids Screen NEGATIVE (NEGATIVE) 03/27/18 20:40 Ethyl Alcohol < 10 mg/dL (0-10) 03/27/18 19:59 RPR NONREACTIVE (NONREACTIVE) 03/27/18 19:59 - Physical Exam Vitals and I&O: Vital Signs Temp 98.1 F 04/01/18 06:15 Pulse 73 04/01/18 07:00 Resp 16 04/01/18 07:00 BP 144/67 04/01/18 06:15 Pulse Ox 97 04/01/18 07:00 Intake & Output 03/31/18 04/01/18 04/01/18 18:59 06:59 18:59 Intake Total 1900 240 Balance 1900 240 Intake: Oral 1900 240 Other: # Voids 3 1 # Bowel Movements 1 0 Active Medications: Current Medications Acetaminophen (Tylenol) 650 mg PO Q4HR PRN PRN Reason: Pain or Fever >101 Stop: 05/26/18 22:44 Last Admin: 03/30/18 10:36 Dose: 650 mg Acetaminophen/Hydrocodone Bitart ([place] 5mg/325mg) 1 tab PO Q6H PRN PRN Reason: Pain (Moderate) Stop: 05/26/18 22:44 Albuterol/Ipratropium (Duoneb Neb) 3 ml HHN Q4HRT PRN PRN Reason: Wheezing Stop: 05/26/18 22:44 Aspirin (Aspirin Chewable) 81 mg PO DAILY [facility] Stop: 05/27/18 08:59 Last Admin: 03/31/18 09:42 Dose: 81 mg Atorvastatin Calcium (Lipitor) 40 mg PO HS [facility] Stop: 05/27/18 20:59 Last Admin: 03/31/18 21:15 Dose: 40 mg Betamethasone/Clotrimazole (Lotrisone Cream) 1 appl TP BID [facility] Stop: 05/29/18 16:59 Last Admin: 03/31/18 09:43 Dose: 1 appl Divalproex Sodium (Depakote Dr) 125 mg PO Q12H [facility]; Protocol Stop: 05/30/18 20:59 Last Admin: 03/31/18 21:17 Dose: 125 mg Docusate Sodium (Colace) 100 mg PO BID [facility] Stop: 05/27/18 08:59 Last Admin: 03/31/18 16:36 Dose: 100 mg Furosemide (Lasix) 40 mg PO DAILY [facility] Stop: 05/27/18 08:59 Last Admin: 03/31/18 09:43 Dose: Not Given Insulin Aspart (Novolog Insulin Sliding Scale) 0 units SUBQ BID@0600,2100 [facility]; Protocol Stop: 05/27/18 20:59 Last Admin: 04/01/18 06:39 Dose: Not Given Lactobacillus Rhamnosus (Culturelle 15b) 1 each PO DAILY [facility] Stop: 05/29/18 08:59 Last Admin: 03/31/18 09:43 Dose: 1 each Levothyroxine Sodium (Synthroid) 0.05 mg PO QDAC [facility] Stop: 05/27/18 07:29 Last Admin: 04/01/18 06:37 Dose: 0.05 mg Lidocaine (Lidoderm 5% Patch) 1 patch TD DAILY [facility] Stop: 05/29/18 12:59 Last Admin: 03/31/18 09:43 Dose: 1 patch Lorazepam (Ativan) 0.5 mg PO Q6HR PRN; Protocol PRN Reason: Anxiety Stop: 04/26/18 21:59 Losartan Potassium (Cozaar) 25 mg PO DAILY [facility] Stop: 05/27/18 08:59 Last Admin: 03/31/18 09:44 Dose: Not Given Metformin HCl (Glucophage) 250 mg PO BID [facility] Stop: 05/27/18 08:59 Last Admin: 03/31/18 16:36 Dose: 250 mg Miscellaneous (Probiotic Screen) 1 ea MC PRN PRN PRN Reason: PROTOCOL Stop: 05/28/18 15:53 Mupirocin (Bactroban Oint) 1 appl NS BID [facility] Stop: 04/03/18 09:01 Last Admin: 03/31/18 09:44 Dose: 1 appl Propylene Glycol (Systane Ophth Soln) 1 drop EACH EYE QID [facility] Stop: 05/27/18 12:59 Last Admin: 03/31/18 21:30 Dose: 1 drop Quetiapine Fumarate (Seroquel) 25 mg PO HS [facility]; Protocol Stop: 05/29/18 20:59 Last Admin: 03/31/18 21:16 Dose: 25 mg Rivaroxaban (Xarelto) 20 mg PO DAILY [facility] Stop: 05/27/18 08:59 Last Admin: 03/31/18 09:41 Dose: 20 mg Sertraline HCl (Zoloft) 50 mg PO DAILY [facility] Stop: 05/28/18 08:59 Last Admin: 03/31/18 09:42 Dose: 50 mg Trimethoprim/Sulfamethoxazole (Bactrim Ds) 1 tab PO BID [facility] Stop: 05/27/18 08:59 Last Admin: 03/31/18 16:36 Dose: 1 tab Zolpidem Tartrate (Ambien) 5 mg PO HS [facility] Stop: 05/27/18 20:59 Last Admin: 03/31/18 21:17 Dose: 5 mg General: Alert, No acute distress HEENT: Atraumatic Neck: Supple Cardiovascular: Regular rate Lungs: Clear to auscultation Abdomen: Bowel sounds, Soft Extremities: Other (No edema) Neurological: Other (unstable gait) Skin: Other (warm and dry) Psych/Mental Status: Other (confused) Assessment/Plan - Assessment Assessment: Patient is awake, alert, calm, not oriented. UA shows UTI. Dx: Increased in agitation, UTI, Anemia, DM, HTN, Hypothyroidism - Plan Plan: Patient is foll;ow by Psychiatry, Continue with SNF meds, Bactrim is added for UTI. Nutritional Asmnt/Malnutr-PDOC - Dietary Evaluation Malnutrition Findings (Please click <Entered> for more info): Nutritional Asmnt/Malnutrition Start: 03/29/18 13: 43 Text: Status: Complete Freq: Protocol: Document 03/29/18 13:43 [email or web address] (Rec: 03/29/18 13:50 [email or web address]) Nutritional Asmnt/Malnutrition Patient General Information Nutritional Screening Moderate Risk Diagnosis psychosis Pertinent Medical Hx/Surgical Hx CAD, CHF, HTN, old [place], dementia, bipolar, depression, psychosis, DM, hypothyroidism Subjective Information Pt was seen eating in dining room at time of visit. Pt is slightly confused, also states she is pre-diabetic and needs to watch what she eats. PO intake is 50-75% per EMR. Current Diet Order/ Nutrition Support CCHO 60 gm Pertinent Medications lipitor, colace, lasix, novolog, synthroid, cozaar, glucophage, seroquel Pertinent Labs 1/2 glucose 125, alb 3.5, LDL 58 Nutritional Hx/Data Height 1.57 m Height (Calculated Centimeters) 157.5 Current Weight (lbs) 68.039 kg Weight (Calculated Kilograms) 68.0 Weight (Calculated Grams) 31566.9 [place] Body Weight 110 Body Mass Index (BMI) 27.4 Weight Status Overweight GI Symptoms GI Symptoms None Last BM not indicated Difficult in: None Food Allergies No Skin Integrity/Comment: intact, sharri 17 Current %PO Fair (50-74%) Estimated Nutritional Goals BEE in Kcals: Using Current wt Calories/Kcals/Kg 23-27 Kcals Calculated 3764-4460 Protein: Using Current wt Protein g/k.8-1 Protein Calculated 54-68 Fluid: ml 6774-3496 (1ml/kcal) Nutritional Problem No current Nutrition Prob Problem N/A Malnutrition Alert Is there a minimum of two criteria No selected? Query Text:Check all the applicable criteria. A minimum of two criteria are recommended for diagnosis of either severe or non-severe malnutrition. Malnutrition Related to Morbid Obesity Malnutrition related to morbid obesity No Intervention/Recommendation Comments 1. Continue with [facility] 60gm diet as ordered. 2. Monitor PO intake, wt, labs and skin integrity 3. F/U as low risk in 7 days, PO check 04/01 Expected Outcomes/Goals Expected Outcomes/Goals Goal: PO intake to meet at least 75% of nutritional needs and improved labs. Reviewed by Ruba Vega RD
[2018-04-01] MEDS: Lidocaine 5% Patch TD SCH (09:37)
[2018-04-01] MEDS: Multivitamin w/ Minerals Tab PO SCH (09:38)
[2018-04-01] MEDS: Sulfamethoxazole/TMP 800/160mg Tab PO SCH ×2 (09:38→16:21)
[2018-04-01] MEDS: Lactobacillus Rhamnosus GG 15 Billion CFU CAP.SPRINK PO SCH (09:38)
[2018-04-01] MEDS: Aspirin 81mg Chewable Tab PO SCH (09:39)
[2018-04-01] MEDS: Betamethasone/Clotrimazole Cream 15 gm Tube TP SCH ×3 (09:39→16:22)
[2018-04-01] MEDS: Peg-400/Propylene Ophth Soln 5 mL Bottle EACH EYE SCH ×5 (09:40→21:44)
--- NOTE | 2018-04-02 01:20 | Progress Notes ---
DATE: 04/01/2018 Staff was spoken to. Patient is interviewed. Mood is noted to be irritable. Affect is constricted. The patient has paranoid delusions, but denies any command hallucinations. No side effects to the medications are noted. The patient has paranoia. The patient is still talking about the FBI and [place]. The patient has not been able to contract for safety. No side effects to the medications are noted. ASSESSMENT: The patient is still psychotic. PLAN: To continue the patient with the current medications and follow up. JOB# [id number]
[2018-04-02] MEDS: INSULIN ASPART SLIDING SCALE 100 UNITS/ML UNIT SUBQ SCH ×2 (06:28→21:04)
[2018-04-02] MEDS: Levothyroxine 0.05 Mg Tab PO SCH (06:30)
--- NOTE | 2018-04-02 08:50 | General Progress Note ---
Subjective - Review of Systems Service Date: 04/02/18 Subjective: patient is confused Objective - Results Result Diagrams: 03/27/18 19:59 03/27/18 19:59 Recent Labs: Laboratory Last Values WBC 8.4 Th/cmm (4.8-10.8) 03/27/18 19:59 RBC 4.03 Mil/cmm (3.80-5.20) 03/27/18 19:59 Hgb 11.4 gm/dL (12-16) L 03/27/18 19:59 Hct 34.9 % (41.0-60) L 03/27/18 19:59 MCV 86.6 fl (81-100) 03/27/18 19:59 MCH 28.4 pg (27.0-31.0) 03/27/18 19:59 MCHC Differential 32.7 pg (28.0-36.0) 03/27/18 19:59 RDW 14.1 % (11.5-20.0) 03/27/18 19:59 Plt Count 277 Th/cmm (150-400) 03/27/18 19:59 MPV 6.9 fl 03/27/18 19:59 Neutrophils % 70.5 % (40.0-80.0) 03/27/18 19:59 Lymphocytes % 17.8 % (20.0-50.0) L 03/27/18 19:59 Monocytes % 9.5 % (2.0-10.0) 03/27/18 19:59 Eosinophils % 1.7 % (0.0-5.0) 03/27/18 19:59 Basophils % 0.5 % (0.0-2.0) 03/27/18 19:59 Sodium 136 mEq/L (136-145) 03/27/18 19:59 Potassium 4.0 mEq/L (3.5-5.1) 03/27/18 19:59 Chloride 101 mEq/L (98-107) 03/27/18 19:59 Carbon Dioxide 27.8 mEq/L (21.0-31.0) 03/27/18 19:59 Anion Gap 11.2 (7.0-16.0) 03/27/18 19:59 BUN 16 mg/dL (7-25) 03/27/18 19:59 Creatinine 0.6 mg/dL (0.6-1.2) 03/27/18 19:59 Est GFR ( Amer) TNP 03/27/18 19:59 Est GFR (Non-Af Amer) TNP 03/27/18 19:59 BUN/Creatinine Ratio 26.7 03/27/18 19:59 Glucose 125 mg/dL (70-105) H 03/27/18 19:59 Calcium 9.2 mg/dL (8.6-10.3) 03/27/18 19:59 Total Bilirubin 0.4 mg/dL (0.3-1.0) 03/27/18 19:59 AST 13 U/L (13-39) 03/27/18 19:59 ALT 7 U/L (7-52) 03/27/18 19:59 Alkaline Phosphatase 53 U/L (34-104) 03/27/18 19:59 Troponin I < 0.01 ng/mL (0.01-0.05) L 03/27/18 19:59 Total Protein 6.1 gm/dL (6.0-8.3) 03/27/18 19:59 Albumin 3.5 gm/dL (3.7-5.3) L 03/27/18 19:59 Globulin 2.6 gm/dL 03/27/18 19:59 Albumin/Globulin Ratio 1.4 (1.0-1.8) 03/27/18 19:59 Triglycerides 73 mg/dL (<150) 03/27/18 19:59 Cholesterol 126 mg/dL (<200) 03/27/18 19:59 LDL Cholesterol Direct 58 mg/dL (75-193) L 03/27/18 19:59 HDL Cholesterol 52 mg/dL (23-92) 03/27/18 19:59 TSH 2.03 uIU/ml (0.34-5.60) 03/27/18 19:59 Urine Source RANDOM 03/27/18 20:40 Urine Color YELLOW 03/27/18 20:40 Urine Clarity HAZY (CLEAR) 03/27/18 20:40 Urine pH 7.0 (4.6 - 8.0) 03/27/18 20:40 Ur Specific [place] <= 1.005 (1.005-1.030) 03/27/18 20:40 Urine Protein NEGATIVE mg/dL (NEGATIVE) 03/27/18 20:40 Urine Glucose (UA) NEGATIVE mg/dL (NEGATIVE) 03/27/18 20:40 Urine Ketones NEGATIVE mg/dL (NEGATIVE) 03/27/18 20:40 Urine Blood TRACE (NEGATIVE) 03/27/18 20:40 Urine Nitrate NEGATIVE (NEGATIVE) 03/27/18 20:40 Urine Bilirubin NEGATIVE (NEGATIVE) 03/27/18 20:40 Urine Urobilinogen 0.2 E.U./dL (0.2 - 1.0) 03/27/18 20:40 Ur Leukocyte Esterase MODERATE (NEGATIVE) H 03/27/18 20:40 Urine RBC 0-2 /hpf (0-5) 03/27/18 20:40 Urine WBC 6-10 /hpf (0-5) H 03/27/18 20:40 Ur Epithelial Cells MODERATE /lpf (FEW) 03/27/18 20:40 Urine Bacteria MANY /hpf (NONE SEEN) H 03/27/18 20:40 Salicylates < 25.0 mg/L (30.0-100.0) L 03/27/18 19:59 Urine Opiates Screen POSITIVE (NEGATIVE) H 03/27/18 20:40 Urine Methadone Screen NEGATIVE (NEGATIVE) 03/27/18 20:40 Acetaminophen < 10.0 ug/mL (10.0-30.0) L 03/27/18 19:59 Ur Barbiturates Screen NEGATIVE (NEGATIVE) 03/27/18 20:40 Valproic Acid 17.1 ug/mL (50.0-100.0) L 03/27/18 19:59 Ur Tricyclics Screen NEGATIVE (NEGATIVE) 03/27/18 20:40 Ur Phencyclidine Scrn NEGATIVE (NEGATIVE) 03/27/18 20:40 Amphetamines Screen NEGATIVE (NEGATIVE) 03/27/18 20:40 U Methamphetamines Scrn NEGATIVE (NEGATIVE) 03/27/18 20:40 U Benzodiazepines Scrn NEGATIVE (NEGATIVE) 03/27/18 20:40 U Cocaine Metab Screen NEGATIVE (NEGATIVE) 03/27/18 20:40 U Cannabinoids Screen NEGATIVE (NEGATIVE) 03/27/18 20:40 Ethyl Alcohol < 10 mg/dL (0-10) 03/27/18 19:59 RPR NONREACTIVE (NONREACTIVE) 03/27/18 19:59 - Physical Exam Vitals and I&O: Vital Signs Temp 97.8 F 04/02/18 06:13 Pulse 85 04/02/18 07:12 Resp 18 04/02/18 07:12 BP 125/66 04/02/18 06:13 Pulse Ox 95 04/02/18 07:12 Intake & Output 04/01/18 04/02/18 04/02/18 18:59 06:59 18:59 Intake Total 240 Output Total 1 Balance 239 Intake: Oral 240 Output: Urine/Stool Mix 1 Other: # Voids 1 Active Medications: Current Medications Acetaminophen (Tylenol) 650 mg PO Q4HR PRN PRN Reason: Pain or Fever >101 Stop: 05/26/18 22:44 Last Admin: 03/30/18 10:36 Dose: 650 mg Acetaminophen/Hydrocodone Bitart ([place] 5mg/325mg) 1 tab PO Q6H PRN PRN Reason: Pain (Moderate) Stop: 05/26/18 22:44 Albuterol/Ipratropium (Duoneb Neb) 3 ml HHN Q4HRT PRN PRN Reason: Wheezing Stop: 05/26/18 22:44 Aspirin (Aspirin Chewable) 81 mg PO DAILY [facility] Stop: 05/27/18 08:59 Last Admin: 04/01/18 09:39 Dose: 81 mg Atorvastatin Calcium (Lipitor) 40 mg PO HS [facility] Stop: 05/27/18 20:59 Last Admin: 04/01/18 21:43 Dose: 40 mg Betamethasone/Clotrimazole (Lotrisone Cream) 1 appl TP BID [facility] Stop: 05/29/18 16:59 Last Admin: 04/01/18 16:22 Dose: 1 appl Divalproex Sodium (Depakote Dr) 125 mg PO Q12H [facility]; Protocol Stop: 05/30/18 20:59 Last Admin: 04/01/18 21:43 Dose: 125 mg Docusate Sodium (Colace) 100 mg PO BID [facility] Stop: 05/27/18 08:59 Last Admin: 04/01/18 16:22 Dose: 100 mg Furosemide (Lasix) 40 mg PO DAILY [facility] Stop: 05/27/18 08:59 Last Admin: 04/01/18 09:38 Dose: 40 mg Insulin Aspart (Novolog Insulin Sliding Scale) 0 units SUBQ BID@0600,2100 [facility]; Protocol Stop: 05/27/18 20:59 Last Admin: 04/02/18 06:28 Dose: Not Given Lactobacillus Rhamnosus (Culturelle 15b) 1 each PO DAILY [facility] Stop: 05/29/18 08:59 Last Admin: 04/01/18 09:38 Dose: 1 each Levothyroxine Sodium (Synthroid) 0.05 mg PO QDAC [facility] Stop: 05/27/18 07:29 Last Admin: 04/02/18 06:30 Dose: 0.05 mg Lidocaine (Lidoderm 5% Patch) 1 patch TD DAILY [facility] Stop: 05/29/18 12:59 Last Admin: 04/01/18 09:37 Dose: 1 patch Lorazepam (Ativan) 0.5 mg PO Q6HR PRN; Protocol PRN Reason: Anxiety Stop: 04/26/18 21:59 Losartan Potassium (Cozaar) 25 mg PO DAILY [facility] Stop: 05/27/18 08:59 Last Admin: 04/01/18 09:39 Dose: 25 mg Metformin HCl (Glucophage) 250 mg PO BID [facility] Stop: 05/27/18 08:59 Last Admin: 04/01/18 16:21 Dose: 250 mg Miscellaneous (Probiotic Screen) 1 ea MC PRN PRN PRN Reason: PROTOCOL Stop: 05/28/18 15:53 Mupirocin (Bactroban Oint) 1 appl NS BID [facility] Stop: 04/03/18 09:01 Last Admin: 04/01/18 16:22 Dose: 1 appl Propylene Glycol (Systane Ophth Soln) 1 drop EACH EYE QID [facility] Stop: 05/27/18 12:59 Last Admin: 04/01/18 21:44 Dose: 1 drop Quetiapine Fumarate (Seroquel) 25 mg PO HS [facility]; Protocol Stop: 05/29/18 20:59 Last Admin: 04/01/18 21:44 Dose: 25 mg Rivaroxaban (Xarelto) 20 mg PO DAILY [facility] Stop: 05/27/18 08:59 Last Admin: 04/01/18 09:38 Dose: 20 mg Sertraline HCl (Zoloft) 50 mg PO DAILY [facility] Stop: 05/28/18 08:59 Last Admin: 04/01/18 09:39 Dose: 50 mg Trimethoprim/Sulfamethoxazole (Bactrim Ds) 1 tab PO BID [facility] Stop: 05/27/18 08:59 Last Admin: 04/01/18 16:21 Dose: 1 tab Zolpidem Tartrate (Ambien) 5 mg PO HS [facility] Stop: 05/27/18 20:59 Last Admin: 04/01/18 21:43 Dose: 5 mg General: Alert, No acute distress HEENT: Atraumatic Neck: Supple Cardiovascular: Regular rate Lungs: Clear to auscultation Abdomen: Bowel sounds, Soft Extremities: Other (No edema) Neurological: Other (unstable gait) Skin: Other (warm and dry) Psych/Mental Status: Other (confused) Assessment/Plan - Assessment Assessment: Patient is awake, alert, calm, not oriented. UA shows UTI. Dx: Increased in agitation, UTI, Anemia, DM, HTN, Hypothyroidism - Plan Plan: Patient is foll;ow by Psychiatry, Continue with SNF meds, Bactrim is added for UTI. Nutritional Asmnt/Malnutr-PDOC - Dietary Evaluation Malnutrition Findings (Please click <Entered> for more info): Nutritional Asmnt/Malnutrition Start: 03/29/18 13: 43 Text: Status: Complete Freq: Protocol: Document 03/29/18 13:43 [email or web address] (Rec: 03/29/18 13:50 [email or web address]) Nutritional Asmnt/Malnutrition Patient General Information Nutritional Screening Moderate Risk Diagnosis psychosis Pertinent Medical Hx/Surgical Hx CAD, CHF, HTN, old [place], dementia, bipolar, depression, psychosis, DM, hypothyroidism Subjective Information Pt was seen eating in dining room at time of visit. Pt is slightly confused, also states she is pre-diabetic and needs to watch what she eats. PO intake is 50-75% per EMR. Current Diet Order/ Nutrition Support CCHO 60 gm Pertinent Medications lipitor, colace, lasix, novolog, synthroid, cozaar, glucophage, seroquel Pertinent Labs 1/2 glucose 125, alb 3.5, LDL 58 Nutritional Hx/Data Height 1.57 m Height (Calculated Centimeters) 157.5 Current Weight (lbs) 68.039 kg Weight (Calculated Kilograms) 68.0 Weight (Calculated Grams) 61695.9 [place] Body Weight 110 Body Mass Index (BMI) 27.4 Weight Status Overweight GI Symptoms GI Symptoms None Last BM not indicated Difficult in: None Food Allergies No Skin Integrity/Comment: intact, sharri 17 Current %PO Fair (50-74%) Estimated Nutritional Goals BEE in Kcals: Using Current wt Calories/Kcals/Kg 23-27 Kcals Calculated 1697-4658 Protein: Using Current wt Protein g/k.8-1 Protein Calculated 54-68 Fluid: ml 0022-9876 (1ml/kcal) Nutritional Problem No current Nutrition Prob Problem N/A Malnutrition Alert Is there a minimum of two criteria No selected? Query Text:Check all the applicable criteria. A minimum of two criteria are recommended for diagnosis of either severe or non-severe malnutrition. Malnutrition Related to Morbid Obesity Malnutrition related to morbid obesity No Intervention/Recommendation Comments 1. Continue with [facility] 60gm diet as ordered. 2. Monitor PO intake, wt, labs and skin integrity 3. F/U as low risk in 7 days, PO check 04/01 Expected Outcomes/Goals Expected Outcomes/Goals Goal: PO intake to meet at least 75% of nutritional needs and improved labs. Reviewed by Ruba Vega RD
[2018-04-02] MEDS: Lidocaine 5% Patch TD SCH (09:25)
[2018-04-02] MEDS: Multivitamin w/ Minerals Tab PO SCH (09:26)
[2018-04-02] MEDS: Lactobacillus Rhamnosus GG 15 Billion CFU CAP.SPRINK PO SCH (09:26)
[2018-04-02] MEDS: Sulfamethoxazole/TMP 800/160mg Tab PO SCH ×2 (09:26→16:41)
[2018-04-02] MEDS: Aspirin 81mg Chewable Tab PO SCH (09:26)
[2018-04-02] MEDS: Peg-400/Propylene Ophth Soln 5 mL Bottle EACH EYE SCH ×4 (09:27→20:58)
[2018-04-02] MEDS: Betamethasone/Clotrimazole Cream 15 gm Tube TP SCH ×2 (09:27→21:38)
--- NOTE | 2018-04-02 21:30 | Progress Notes ---
DATE: 04/01/2018 PSYCHOLOGY PROGRESS NOTE SUBJECTIVE: The patient is seen and interviewed. Mood is irritable. Affect is constricted. The patient continues to have paranoid delusions. The patient continues to state that she works with the [employer] and the [employer] and that they know where she is. The patient was unable to contract for safety. OBJECTIVE: Mood irritable. Affect constricted. Thought process indicates paranoid ideation as well as persecutory delusions. The patient denied any auditory or visual hallucinations or any command hallucinations. The patient's behavior has been intermittently compliant with staff direction and her treatment plan. ASSESSMENT: 1. Psychotic disorder, not otherwise specified. 2. Dementia with behavioral disturbance. TREATMENT PLAN: The patient is being continued on her current medications by Dr. Welsh. This process description writer provided reality orientation, differentiation and integration. We provided remotivation for the patient to be compliant and stay compliant with all aspects of her care and treatment. The patient is less intrusive. However, we reviewed limit setting as well as boundary awareness and definitions. We provided stress management to assist the patient to increase her frustration tolerance. We also provided coping mechanisms for chronic severe mental illness. Coping strategies for phase of life issues were also reviewed. We will follow up in 2 days to continue present treatment. JOB# [id number] GELACIO
--- NOTE | 2018-04-03 03:26 | Progress Notes ---
DATE: 04/02/2018 PSYCHIATRIC PROGRESS NOTE SUBJECTIVE: Staff was spoken to. The patient is interviewed. Mood is noted to be irritable. Affect is constricted. The patient continues to be very paranoid. The patient has been worrying about the [employer]. Coping skills at this time are noted to be very poor. The patient's insight and judgment are also noted very much impaired. The patient; however, has been noted to be alert and aware that she is in the hospital. Attention span and concentration are noted to be very poor. ASSESSMENT: The patient is still impulsive and psychotic. PLAN: To continue the patient with the current medications. I encouraged the patient to verbalize the concerns rather than to act out. [facility]# [id number]
[2018-04-03] MEDS: INSULIN ASPART SLIDING SCALE 100 UNITS/ML UNIT SUBQ SCH (06:44)
[2018-04-03] MEDS: Levothyroxine 0.05 Mg Tab PO SCH (06:44)
[2018-04-03] MEDS: Aspirin 81mg Chewable Tab PO SCH (09:14)
[2018-04-03] MEDS: Lactobacillus Rhamnosus GG 15 Billion CFU CAP.SPRINK PO SCH (09:15)
[2018-04-03] MEDS: Multivitamin w/ Minerals Tab PO SCH (09:17)
[2018-04-03] MEDS: Sulfamethoxazole/TMP 800/160mg Tab PO SCH ×2 (09:18→17:43)
[2018-04-03] MEDS: Betamethasone/Clotrimazole Cream 15 gm Tube TP SCH ×2 (09:21→17:42)
[2018-04-03] MEDS: Peg-400/Propylene Ophth Soln 5 mL Bottle EACH EYE SCH ×3 (09:22→17:42)
[2018-04-03] MEDS: Lidocaine 5% Patch TD SCH (09:29)
--- NOTE | 2018-04-03 11:52 | General Progress Note ---
Subjective - Review of Systems Service Date: 04/03/18 Subjective: patient is confused Objective - Results Result Diagrams: 03/27/18 19:59 03/27/18 19:59 Recent Labs: Laboratory Last Values WBC 8.4 Th/cmm (4.8-10.8) 03/27/18 19:59 RBC 4.03 Mil/cmm (3.80-5.20) 03/27/18 19:59 Hgb 11.4 gm/dL (12-16) L 03/27/18 19:59 Hct 34.9 % (41.0-60) L 03/27/18 19:59 MCV 86.6 fl (81-100) 03/27/18 19:59 MCH 28.4 pg (27.0-31.0) 03/27/18 19:59 MCHC Differential 32.7 pg (28.0-36.0) 03/27/18 19:59 RDW 14.1 % (11.5-20.0) 03/27/18 19:59 Plt Count 277 Th/cmm (150-400) 03/27/18 19:59 MPV 6.9 fl 03/27/18 19:59 Neutrophils % 70.5 % (40.0-80.0) 03/27/18 19:59 Lymphocytes % 17.8 % (20.0-50.0) L 03/27/18 19:59 Monocytes % 9.5 % (2.0-10.0) 03/27/18 19:59 Eosinophils % 1.7 % (0.0-5.0) 03/27/18 19:59 Basophils % 0.5 % (0.0-2.0) 03/27/18 19:59 Sodium 136 mEq/L (136-145) 03/27/18 19:59 Potassium 4.0 mEq/L (3.5-5.1) 03/27/18 19:59 Chloride 101 mEq/L (98-107) 03/27/18 19:59 Carbon Dioxide 27.8 mEq/L (21.0-31.0) 03/27/18 19:59 Anion Gap 11.2 (7.0-16.0) 03/27/18 19:59 BUN 16 mg/dL (7-25) 03/27/18 19:59 Creatinine 0.6 mg/dL (0.6-1.2) 03/27/18 19:59 Est GFR ( Amer) TNP 03/27/18 19:59 Est GFR (Non-Af Amer) TNP 03/27/18 19:59 BUN/Creatinine Ratio 26.7 03/27/18 19:59 Glucose 125 mg/dL (70-105) H 03/27/18 19:59 POC Glucose 115 MG/DL (70 - 105) H 04/03/18 06:43 Calcium 9.2 mg/dL (8.6-10.3) 03/27/18 19:59 Total Bilirubin 0.4 mg/dL (0.3-1.0) 03/27/18 19:59 AST 13 U/L (13-39) 03/27/18 19:59 ALT 7 U/L (7-52) 03/27/18 19:59 Alkaline Phosphatase 53 U/L (34-104) 03/27/18 19:59 Troponin I < 0.01 ng/mL (0.01-0.05) L 03/27/18 19:59 Total Protein 6.1 gm/dL (6.0-8.3) 03/27/18 19:59 Albumin 3.5 gm/dL (3.7-5.3) L 03/27/18 19:59 Globulin 2.6 gm/dL 03/27/18 19:59 Albumin/Globulin Ratio 1.4 (1.0-1.8) 03/27/18 19:59 Triglycerides 73 mg/dL (<150) 03/27/18 19:59 Cholesterol 126 mg/dL (<200) 03/27/18 19:59 LDL Cholesterol Direct 58 mg/dL (75-193) L 03/27/18 19:59 HDL Cholesterol 52 mg/dL (23-92) 03/27/18 19:59 TSH 2.03 uIU/ml (0.34-5.60) 03/27/18 19:59 Urine Source RANDOM 03/27/18 20:40 Urine Color YELLOW 03/27/18 20:40 Urine Clarity HAZY (CLEAR) 03/27/18 20:40 Urine pH 7.0 (4.6 - 8.0) 03/27/18 20:40 Ur Specific [place] <= 1.005 (1.005-1.030) 03/27/18 20:40 Urine Protein NEGATIVE mg/dL (NEGATIVE) 03/27/18 20:40 Urine Glucose (UA) NEGATIVE mg/dL (NEGATIVE) 03/27/18 20:40 Urine Ketones NEGATIVE mg/dL (NEGATIVE) 03/27/18 20:40 Urine Blood TRACE (NEGATIVE) 03/27/18 20:40 Urine Nitrate NEGATIVE (NEGATIVE) 03/27/18 20:40 Urine Bilirubin NEGATIVE (NEGATIVE) 03/27/18 20:40 Urine Urobilinogen 0.2 E.U./dL (0.2 - 1.0) 03/27/18 20:40 Ur Leukocyte Esterase MODERATE (NEGATIVE) H 03/27/18 20:40 Urine RBC 0-2 /hpf (0-5) 03/27/18 20:40 Urine WBC 6-10 /hpf (0-5) H 03/27/18 20:40 Ur Epithelial Cells MODERATE /lpf (FEW) 03/27/18 20:40 Urine Bacteria MANY /hpf (NONE SEEN) H 03/27/18 20:40 Salicylates < 25.0 mg/L (30.0-100.0) L 03/27/18 19:59 Urine Opiates Screen POSITIVE (NEGATIVE) H 03/27/18 20:40 Urine Methadone Screen NEGATIVE (NEGATIVE) 03/27/18 20:40 Acetaminophen < 10.0 ug/mL (10.0-30.0) L 03/27/18 19:59 Ur Barbiturates Screen NEGATIVE (NEGATIVE) 03/27/18 20:40 Valproic Acid 17.1 ug/mL (50.0-100.0) L 03/27/18 19:59 Ur Tricyclics Screen NEGATIVE (NEGATIVE) 03/27/18 20:40 Ur Phencyclidine Scrn NEGATIVE (NEGATIVE) 03/27/18 20:40 Amphetamines Screen NEGATIVE (NEGATIVE) 03/27/18 20:40 U Methamphetamines Scrn NEGATIVE (NEGATIVE) 03/27/18 20:40 U Benzodiazepines Scrn NEGATIVE (NEGATIVE) 03/27/18 20:40 U Cocaine Metab Screen NEGATIVE (NEGATIVE) 03/27/18 20:40 U Cannabinoids Screen NEGATIVE (NEGATIVE) 03/27/18 20:40 Ethyl Alcohol < 10 mg/dL (0-10) 03/27/18 19:59 RPR NONREACTIVE (NONREACTIVE) 03/27/18 19:59 - Physical Exam Vitals and I&O: Vital Signs Temp 97.5 F 04/03/18 06:00 Pulse 67 04/03/18 09:15 Resp 16 04/03/18 07:03 BP 140/70 04/03/18 09:15 Pulse Ox 96 04/03/18 07:00 Intake & Output 04/02/18 04/03/18 04/03/18 18:59 06:59 18:59 Intake Total 450 Balance 450 Weight (lbs) 68.039 kg Intake: Oral 450 Other: # Voids 1 # Bowel Movements 0 Weight Source Bedscale Active Medications: Current Medications Acetaminophen (Tylenol) 650 mg PO Q4HR PRN PRN Reason: Pain or Fever >101 Stop: 05/26/18 22:44 Last Admin: 03/30/18 10:36 Dose: 650 mg Acetaminophen/Hydrocodone Bitart ([place] 5mg/325mg) 1 tab PO Q6H PRN PRN Reason: Pain (Moderate) Stop: 05/26/18 22:44 Albuterol/Ipratropium (Duoneb Neb) 3 ml HHN Q4HRT PRN PRN Reason: Wheezing Stop: 05/26/18 22:44 Aspirin (Aspirin Chewable) 81 mg PO DAILY [facility] Stop: 05/27/18 08:59 Last Admin: 04/03/18 09:14 Dose: 81 mg Atorvastatin Calcium (Lipitor) 40 mg PO HS [facility] Stop: 05/27/18 20:59 Last Admin: 04/02/18 20:58 Dose: 40 mg Betamethasone/Clotrimazole (Lotrisone Cream) 1 appl TP BID [facility] Stop: 05/29/18 16:59 Last Admin: 04/03/18 09:21 Dose: 1 appl Divalproex Sodium (Depakote Dr) 125 mg PO Q12H [facility]; Protocol Stop: 05/30/18 20:59 Last Admin: 04/03/18 09:14 Dose: 125 mg Docusate Sodium (Colace) 100 mg PO BID [facility] Stop: 05/27/18 08:59 Last Admin: 04/03/18 09:14 Dose: 100 mg Furosemide (Lasix) 40 mg PO DAILY [facility] Stop: 05/27/18 08:59 Last Admin: 04/03/18 09:15 Dose: 40 mg Insulin Aspart (Novolog Insulin Sliding Scale) 0 units SUBQ BID@0600,2100 [facility]; Protocol Stop: 05/27/18 20:59 Last Admin: 04/03/18 06:44 Dose: Not Given Lactobacillus Rhamnosus (Culturelle 15b) 1 each PO DAILY [facility] Stop: 05/29/18 08:59 Last Admin: 04/03/18 09:15 Dose: 1 each Levothyroxine Sodium (Synthroid) 0.05 mg PO QDAC [facility] Stop: 05/27/18 07:29 Last Admin: 04/03/18 06:44 Dose: 0.05 mg Lidocaine (Lidoderm 5% Patch) 1 patch TD DAILY [facility] Stop: 05/29/18 12:59 Last Admin: 04/03/18 09:29 Dose: 1 patch Lorazepam (Ativan) 0.5 mg PO Q6HR PRN; Protocol PRN Reason: Anxiety Stop: 04/26/18 21:59 Losartan Potassium (Cozaar) 25 mg PO DAILY [facility] Stop: 05/27/18 08:59 Last Admin: 04/03/18 09:15 Dose: 25 mg Metformin HCl (Glucophage) 250 mg PO BID [facility] Stop: 05/27/18 08:59 Last Admin: 04/03/18 09:16 Dose: 250 mg Miscellaneous (Probiotic Screen) 1 ea MC PRN PRN PRN Reason: PROTOCOL Stop: 05/28/18 15:53 Propylene Glycol (Systane Ophth Soln) 1 drop EACH EYE QID [facility] Stop: 05/27/18 12:59 Last Admin: 04/03/18 09:22 Dose: 1 drop Quetiapine Fumarate (Seroquel) 25 mg PO HS [facility]; Protocol Stop: 05/29/18 20:59 Last Admin: 04/02/18 20:58 Dose: 25 mg Rivaroxaban (Xarelto) 20 mg PO DAILY [facility] Stop: 05/27/18 08:59 Last Admin: 04/03/18 09:18 Dose: 20 mg Sertraline HCl (Zoloft) 50 mg PO DAILY [facility] Stop: 05/28/18 08:59 Last Admin: 04/03/18 09:18 Dose: 50 mg Trimethoprim/Sulfamethoxazole (Bactrim Ds) 1 tab PO BID [facility] Stop: 05/27/18 08:59 Last Admin: 04/03/18 09:18 Dose: 1 tab Zolpidem Tartrate (Ambien) 5 mg PO HS [facility] Stop: 05/27/18 20:59 Last Admin: 04/02/18 20:58 Dose: 5 mg General: Alert, No acute distress HEENT: Atraumatic Neck: Supple Cardiovascular: Regular rate Lungs: Clear to auscultation Abdomen: Bowel sounds, Soft Extremities: Other (No edema) Neurological: Other (unstable gait) Skin: Other (warm and dry) Psych/Mental Status: Other (confused) Assessment/Plan - Assessment Assessment: Patient is awake, alert, calm, not oriented. UA shows UTI. Dx: Increased in agitation, UTI, Anemia, DM, HTN, Hypothyroidism - Plan Plan: Patient is foll;ow by Psychiatry, Continue with SNF meds, Bactrim is added for UTI. Nutritional Asmnt/Malnutr-PDOC - Dietary Evaluation Malnutrition Findings (Please click <Entered> for more info): Nutritional Asmnt/Malnutrition Start: 03/29/18 13: 43 Text: Status: Complete Freq: Protocol: Document 03/29/18 13:43 [email or web address] (Rec: 03/29/18 13:50 [email or web address]) Nutritional Asmnt/Malnutrition Patient General Information Nutritional Screening Moderate Risk Diagnosis psychosis Pertinent Medical Hx/Surgical Hx CAD, CHF, HTN, old DC, dementia, bipolar, depression, psychosis, DM, hypothyroidism Subjective Information Pt was seen eating in dining room at time of visit. Pt is slightly confused, also states she is pre-diabetic and needs to watch what she eats. PO intake is 50-75% per EMR. Current Diet Order/ Nutrition Support CCHO 60 gm Pertinent Medications lipitor, colace, lasix, novolog, synthroid, cozaar, glucophage, seroquel Pertinent Labs 1/2 glucose 125, alb 3.5, LDL 58 Nutritional Hx/Data Height 1.57 m Height (Calculated Centimeters) 157.5 Current Weight (lbs) 68.039 kg Weight (Calculated Kilograms) 68.0 Weight (Calculated Grams) 59343.9 [place] Body Weight 110 Body Mass Index (BMI) 27.4 Weight Status Overweight GI Symptoms GI Symptoms None Last BM not indicated Difficult in: None Food Allergies No Skin Integrity/Comment: lucio, sharri 17 Current %PO Fair (50-74%) Estimated Nutritional Goals BEE in Kcals: Using Current wt Calories/Kcals/Kg 23-27 Kcals Calculated 7320-5652 Protein: Using Current wt Protein g/k.8-1 Protein Calculated 54-68 Fluid: ml 4940-6404 (1ml/kcal) Nutritional Problem No current Nutrition Prob Problem N/A Malnutrition Alert Is there a minimum of two criteria No selected? Query Text:Check all the applicable criteria. A minimum of two criteria are recommended for diagnosis of either severe or non-severe malnutrition. Malnutrition Related to Morbid Obesity Malnutrition related to morbid obesity No Intervention/Recommendation Comments 1. Continue with [facility] 60gm diet as ordered. 2. Monitor PO intake, wt, labs and skin integrity 3. F/U as low risk in 7 days, PO check 04/01 Expected Outcomes/Goals Expected Outcomes/Goals Goal: PO intake to meet at least 75% of nutritional needs and improved labs. Reviewed by Ruba Vega RD
--- NOTE | 2018-04-03 23:50 | Progress Notes ---
DATE: 04/03/2018 PSYCHIATRIC PROGRESS NOTE SUBJECTIVE: Staff was spoken to. The patient is interviewed. Mood is noted to be anxious. Affect is constricted. Insight and judgment at this time are noted to be still impaired. Impulse control is noted to be limited. Coping skills are noted to be limited, but however, the patient is not presenting with any threats to harm self or others and is motivated to seek treatment on an outpatient basis and hence it is decided to discharge the patient today for followup on an outpatient basis. JOB# [id number]
--- NOTE | 2018-04-04 15:24 | Progress Notes ---
DATE: 04/03/2018 SUBJECTIVE: The patient seen and interviewed. Mood is mildly anxious. Affect is constricted. The patient is not irritable at the time of this clinical interview. Impulse control continues to be somewhat of an issue, but the patient is complying with staff direction and current medications as well as other aspects of treatment. OBJECTIVE: Mood anxious. Affect constricted. Thought process shows to be concrete. The patient still exhibits suspiciousness. 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 The patient was provided with reality orientation and integration. We provided remotivation for the patient to stay compliant with all aspects of her care. Morgan awareness and definitions were reviewed. Coping strategies for phase of life issues were also reviewed. The patient was provided with stress management to increase her frustration tolerance. No followup is indicated. The patient possibly is discharging today or tomorrow. [facility]# [id number] GELACIO
--- NOTE | 2018-04-07 18:54 | Discharge Summary ---
DATE OF DISCHARGE: 04/03/2018 IDENTIFYING DATA: The patient is an 82-year-old woman, [facility] a [facility] facility. JUSTIFICATION OF HOSPITALIZATION: The patient is admitted from [facility] because of her psychosis. DIAGNOSES AT THE TIME OF ADMISSION: AXIS I: Psychotic disorder, not otherwise specified. AXIS IB: Dementia and behavioral change, secondary trait. AXIS II: None. AXIS III: As per Dr. Dorado. HISTORY OF PRESENT ILLNESS: Please refer to the 03/28/2018 dictation done by me. Physical examination was done by Dr. Dorado. Lab studies done during the hospitalization have been reviewed. No major concerns have been noted. HOSPITAL COURSE AND RESPONSE TO TREATMENT: The patient has been started on 50 mg of sertraline and Seroquel was given 25 mg at bedtime. With these medications, the patient has been closely monitored. The patient has been started to do fairly well and hence was finally discharged with recommendation that she is going to be going back to the [facility] for further followup. PROGNOSIS: At the time of discharge noted to be fair with the treatment. JOB# [id number]
== END 2018-04-03 18:24 | DRG 885 ==
LOC: ER 19:34 → GERO 21:21
PROVIDERS: ADMIT Psychiatry & Neurology Psychiatry; ATTEND Psychiatry & Neurology Psychiatry
DX: F29 Unspecified psychosis not due to a substance or known physiological condition (principal); I11.0 Hypertensive heart disease with heart failure; F03.91 Unspecified dementia, unspecified severity, with behavioral disturbance; N39.0 Urinary tract infection, site not specified; D64.9 Anemia, unspecified; E11.9 Type 2 diabetes mellitus without complications; E03.9 Hypothyroidism, unspecified; E78.5 Hyperlipidemia, unspecified; I50.9 Heart failure, unspecified; I25.10 Atherosclerotic heart disease of native coronary artery without angina pectoris; I25.2 Old myocardial infarction; Z79.4 Long term (current) use of insulin; Z82.49 Family history of ischemic heart disease and other diseases of the circulatory system
CPT/HCPCS: 36415-UA; 80053-TC; 80061-TC; 80164-TC; 80307; 80320-TC; 80329-TC; 81001-TC; 82948-90; 84443-TC; 84484-TC; 85025-TC; 86592-TC; 87086-90; 93005; 94760; J1815; Z7610